=== PATIENT | female | born 1980 | race Caucasian/White ===

== ENCOUNTER 2022-12-24 21:16 | Emergency (ER) | payer OTHER, SELFPAY ==
[2022-12-24] VITALS (13 sets, daily range): BP systolic 123–154; BP diastolic 85–105; PULSE 82–113; RESP 13–22; TEMP 37.2; O2SAT 77–97; BMI 37.1
--- NOTE | 2022-12-24 21:33 | PC.NURSE ---
pt complains of chest pain that began around 6 pm and has gotten worse.
--- NOTE | 2022-12-24 21:52 | ED_ITS ---
HPI - Chest Pain General Chief Complaint: Chest Pain Stated Complaint: CHEST PAIN Time Seen by Provider: 12/24/22 21:49 Source: patient Mode of arrival: walk-in Limitations: no limitations History of Present Illness HPI narrative: family history of heart disease. Father [place] 61. Presents complaining of pain of her left back that started around 5PM and radiated down her left arm. Increased pain with change in position and with deep breath. No associated nausea or dyspnea. Does not smoke cigarettes but does vape. Related Data Home Medications Medication Instructions Recorded Confirmed bupropion HCl 150 mg tablet,12 hr 150 mg PO Q12H 12/24/22 12/24/22 sustained-release diphenhydramine HCl 25 mg capsule 25 mg PO BEDTIME 12/24/22 12/24/22 (Allergy (diphenhydramine)) ibuprofen 800 mg tablet (IBU) 800 mg PO Q12H 12/24/22 12/24/22 pantoprazole 40 mg tablet,delayed 40 mg PO DAILY 12/24/22 12/24/22 release sucralfate 1 gram tablet 1 g PO Q12H 12/24/22 12/24/22 tizanidine 2 mg capsule 2 mg PO BEDTIME 12/24/22 12/24/22 Allergies Allergy/AdvReac Type Severity Reaction Status Date / Time acetaminophen [From Vicodin] Allergy Intermediate Verified 12/24/22 21:26 codeine Allergy Intermediate Verified 12/24/22 21:26 hydrocodone [From Vicodin] Allergy Intermediate Verified 12/24/22 21:26 latex Allergy Intermediate Verified 12/24/22 21:26 Penicillins Allergy Intermediate Verified 12/24/22 21:26 Review of Systems ROS Status of ROS 10 or more systems reviewed and unremarkable except as noted in history and below [facility] Medical History (Updated 12/25/22 @ 01:01 by Romero Baig MD) Exam Constitutional Vital Signs - 24 hr 12/24/22 21:22 12/24/22 21:32 12/24/22 21:40 Temperature 99 F Pulse Rate 109 H 95 H Pulse Rate [Monitor] 113 H Respiratory Rate 20 22 20 Blood Pressure Blood Pressure [Left Arm] 154/103 H Pulse Oximetry 95 12/24/22 21:43 12/24/22 21:44 12/24/22 21:45 Temperature Pulse Rate 95 H 96 H 98 H Pulse Rate [Monitor] Respiratory Rate 14 19 20 Blood Pressure 149/105 H 149/96 H Blood Pressure [Left Arm] Pulse Oximetry 96 95 94 L 12/24/22 22:00 12/24/22 22:30 12/24/22 22:45 Temperature Pulse Rate 96 H 87 86 Pulse Rate [Monitor] Respiratory Rate 19 15 18 Blood Pressure 144/102 H 136/98 H 140/93 H Blood Pressure [Left Arm] Pulse Oximetry 96 97 77 L 12/24/22 23:00 12/24/22 23:15 12/24/22 23:30 Temperature Pulse Rate 86 87 84 Pulse Rate [Monitor] Respiratory Rate 21 17 14 Blood Pressure 123/85 H 130/87 H 128/89 H Blood Pressure [Left Arm] Pulse Oximetry 94 L 97 96 12/24/22 23:45 12/25/22 00:00 12/25/22 00:15 Temperature Pulse Rate 82 85 90 Pulse Rate [Monitor] Respiratory Rate 13 18 23 Blood Pressure 130/91 H 129/87 H 130/87 H Blood Pressure [Left Arm] Pulse Oximetry 94 L 95 97 12/25/22 00:30 12/25/22 00:45 Temperature Pulse Rate 87 88 Pulse Rate [Monitor] Respiratory Rate 16 15 Blood Pressure 128/80 H 122/94 H Blood Pressure [Left Arm] Pulse Oximetry 93 L 93 L Common normals: oriented x3, healthy appearing, alert and well nourished Other: no distress until she sits up and changes position and then she has pain HENMT Common normals: normocephalic, head/scalp atraumatic and hearing grossly normal bilaterally Eye Common normals: PERRL, EOMs intact bilaterally and conjunctivae normal Neck & C-Spine Common normals: full ROM Chest Common normals: inspection of chest normal and palpation of chest normal Respiratory Common normals: normal respiratory effort and no use of accessory muscles Auscultation: clear to auscultation bilaterally Other: increased pain with deep breath Cardio Common normals: no JVD, regular rate, regular rhythm, S1 normal heart sound and S2 normal heart sound GI Common normals: Normal to inspection, nondistended, normoactive bowel sounds present, soft to palpation and non-tender Extremity Common normals: normal to inspection, full ROM and no joint enlargement Neuro Common normals: oriented x3, CN's II-XII intact bilaterally, moves all extremities and no focal motor deficits Psych Appearance: grossly normal Course Vital Signs Vital signs: Vital Signs Temperature 99 F 12/24/22 21:22 Pulse Rate 113 H 12/24/22 21:22 Respiratory Rate 20 12/24/22 21:22 Blood Pressure 154/103 H 12/24/22 21:22 Pulse Oximetry 95 12/24/22 21:22 Temperature 99 F 12/24/22 21:22 Pulse Rate 88 12/25/22 00:45 Respiratory Rate 15 12/25/22 00:45 Blood Pressure 122/94 H 12/25/22 00:45 Pulse Oximetry 93 L 12/25/22 00:45 MDM - Chest Pain MDM Narrative Medical decision making narrative: patient presents with musculoskeletal pain of her back that radiated to her left arm. pain increased with change in position and with deep breath. No associated dyspnea or nausea. CTA neg for PE. Did comment about mild to mod. cardiomegaly. troponin not able to measured x 2 as the value was less than 4. EKG sinus tach on admission without acute changes. Patient treated with one dose of morphine. Patient discharged home with diagnosis of musculoskeletal pain. Advised to follow up with her doctor regarding her cardiomegaly Lab Data Labs: Lab Results 12/24/22 12/24/22 12/24/22 Range/Units 00:22 21:25 23:50 WBC 8.9 (4.0-11.0) 10^3/uL RBC 4.55 (4.20-5.40) 10^6/uL Hgb 12.9 (12.0-16.0) g/dL Hct 38.1 (36.0-48.0) % MCV 83.7 (81.0-99.0) fL MCH 28.4 (26.7-34.0) pg MCHC 33.9 (29.9-35.2) g/dL RDW 13.2 (11.0-15.0) % Plt Count 385 (150-450) 10^3/uL MPV 9.5 (9.5-13.5) fL Neut % (Auto) 55.0 (43.0-75.0) % Lymph % (Auto) 31.8 (20.5-60.0) % [place] % (Auto) 8.8 (1.7-12.0) % Eos % (Auto) 3.4 (0.9-7.0) % Baso % (Auto) 0.7 (0.2-2.0) % Neut # (Auto) 4.9 (1.4-6.5) 10^3/uL Lymph # (Auto) 2.8 (1.2-3.8) 10^3/uL [place] # (Auto) 0.8 (0.3-0.8) 10^3/uL Eos # (Auto) 0.3 (0.0-0.7) 10^3/uL Baso # (Auto) 0.1 (0.0-0.1) 10^3/uL Abs Immat Gran (auto) 0.03 (0.00-0.03) 10^3/uL Imm/Tot Granulo (auto) 0.3 (0.0-0.5) % D-Dimer 0.22 (<=0.59) mg/L FEU Sodium 136 (136-145) mmol/L Potassium 3.4 L (3.5-5.1) mmol/L Chloride 103 (98-107) mmol/L Carbon Dioxide 22.5 (21.0-32.0) mmol/L Anion Gap 13.9 BUN 12.0 (7.0-18.0) mg/dL Creatinine 0.80 (0.55-1.02) mg/dL Est GFR ( Amer) >60 (>=60) Est GFR (Non-Af Amer) >60 (>=60) BUN/Creatinine Ratio 15.0 Glucose 127 H (74-106) mg/dL Calcium 9.0 (8.5-10.1) mg/dL Troponin I High Sens <4.0 L <4.0 L (4.0-51.3) pg/mL Discharge Plan Discharge Chief Complaint: Chest Pain Clinical Impression: Musculoskeletal back pain Prescriptions / Home Meds: No Action bupropion HCl 150 mg tablet sustained-release 12 hr 150 mg PO Q12H sucralfate 1 gram tablet 1 g PO Q12H pantoprazole 40 mg tablet,delayed release (DR/EC) 40 mg PO DAILY tizanidine 2 mg capsule 2 mg PO BEDTIME diphenhydramine HCl [Allergy (diphenhydramine)] 25 mg capsule 25 mg PO BEDTIME ibuprofen [IBU] 800 mg tablet 800 mg PO Q12H Instructions: Musculoskeletal Pain (ED) Stand Alone Forms: Portal Instructions Referrals: Physician,Non-Staff, MD [Primary Care Provider] - 1 week Follow Up Appointments: follow up with the family doctor for recheck. Also need followup for cardiomegaly
--- NOTE | 2022-12-24 21:56 | CT_ITS ---
[address] [address] Patient Name: HAYDER GUTIERRES MRN: [id number] date: 1980 Sex: F Assigned Patient Location: ER Current Patient Location: Accession/Order Number: [id number] Exam Date: 12/24/2022 22:12 Report Date: 12/24/2022 22:55 At the request of: GAL HSIEH Procedure: CT angio chest EXAM: CT angio chest HISTORY: pleuritic chest pain COMPARISON: Chest radiograph 03/05/2022 TECHNIQUE: CT angiography of the pulmonary arteries following the administration of intravenous contrast. Coronal and sagittal MIP (maximum intensity projection) images were performed. Dose reduction techniques were achieved by using automated exposure control and/or adjustment of mA and/or kV according to patient size and/or use of iterative reconstruction technique. FINDINGS: The study is technically adequate for the diagnosis of pulmonary embolism, with good contrast bolus to the pulmonary arteries. TUBES AND IMPLANTS: None. CHEST WALL AND LOWER NECK: Unremarkable. BONES: No suspicious lesions. UPPER ABDOMEN: Prior cholecystectomy. Probable hepatic steatosis. MEDIASTINUM AND SEKOU: Unremarkable. AORTA: No dissection or aneurysm. PULMONARY ARTERIES: No embolism HEART: Mild to moderate cardiomegaly CORONARY ARTERIES: No coronary artery calcifications. LUNG AND AIRWAYS: Unremarkable. PLEURA: Unremarkable. IMPRESSION: 1. No evidence for pulmonary embolism. No evidence of acute intrathoracic process. 2. Mild to moderate cardiomegaly. 3. Probable hepatic steatosis. Electronically authenticated by: COSME WONG Date: 12/24/2022 22:55
--- NOTE | 2022-12-24 21:56 | ECG_ITS ---
The [facility] Test Date: 2022-12-24 Pat Name: Alina Rizzo Department: Room: - Gender: Female Nnps: : 1980 Requested By: [id number] Order Number: [id number] Reading MD: RIP FERGUSON Measurements Intervals [place] Rate: 109 P: 49 MT: 158 QRS: 32 QRSD: 76 T: 35 QT: 330 QTc: 394 Interpretive Statements 1120 Sinus tachycardia 9140 abnormal rhythm ECG No previous ECG available for comparison Electronically Signed On 12-25-2022 5:44:34 EDT by RIP FERGUSON
[2022-12-24 22:09] LABS: Basophils Absolute Auto 0.1 10^3/uL (0.0-0.1); Basophils Percent Auto 0.7 % (0.2-2.0); Eosinophils Absolute Auto 0.3 10^3/uL (0.0-0.7); Eosinophils Percent Auto 3.4 % (0.9-7.0); Hematocrit 38.1 % (36.0-48.0); Hemoglobin 12.9 g/dL (12.0-16.0); Immature Granulocytes Abs Auto 0.03 10^3/uL (0.00-0.03); Immature Granulocytes Pct Auto 0.3 % (0.0-0.5); Lymphocytes Absolute Auto 2.8 10^3/uL (1.2-3.8); Lymphocytes Percent Auto 31.8 % (20.5-60.0); Mean Corpuscular HGB Conc 33.9 g/dL (29.9-35.2); Mean Corpuscular Hemoglobin 28.4 pg (26.7-34.0); Mean Corpuscular Volume 83.7 fL (81.0-99.0); Mean Platelet Volume 9.5 fL (9.5-13.5); Monocytes Absolute Auto 0.8 10^3/uL (0.3-0.8); Monocytes Percent Auto 8.8 % (1.7-12.0); Neutrophils Absolute Auto 4.9 10^3/uL (1.4-6.5); Platelet Count 385 10^3/uL (150-450); Red Blood Count 4.55 10^6/uL (4.20-5.40); Red Cell Distribution Width 13.2 % (11.0-15.0); White Blood Count 8.9 10^3/uL (4.0-11.0)
[2022-12-24 22:16] LABS: D Dimer 0.22 mg/L FEU (<=0.59)
[2022-12-24 22:25] LABS: Anion Gap 13.9; Carbon Dioxide 22.5 mmol/L (21.0-32.0); Chloride 103 mmol/L (98-107); Estimated GFR (African America >60 (>=60); Estimated GFR (Non-African Ame >60 (>=60); Glucose 127 mg/dL (74-106); Potassium 3.4 mmol/L (3.5-5.1); Sodium 136 mmol/L (136-145); Troponin I High Sensitivity <4.0 pg/mL (4.0-51.3)
[2022-12-24] MEDS: ONDANSETRON PF 4 MG/2 ML VIAL IV (23:30)
[2022-12-24] MEDS: MORPHINE SULFATE 4 MG/ML VIAL IV (23:30)
[2022-12-25] VITALS: BP 129/87; PULSE 85; RESP 18; O2SAT 95
[2022-12-25 00:15] VITALS: BP 130/87; PULSE 90; RESP 23; O2SAT 97
[2022-12-25 00:25] LABS: Troponin I High Sensitivity <4.0 pg/mL (4.0-51.3)
[2022-12-25 00:30] VITALS: BP 128/80; PULSE 87; RESP 16; O2SAT 93
[2022-12-25 00:45] VITALS: BP 122/94; PULSE 88; PULSE 89; RESP 15; O2SAT 93; O2SAT 95
[2022-12-25 01:00] VITALS: BP 128/90
== END 2022-12-25 01:20 | disposition home or self-care (01) ==
PROVIDERS: Emergency Provider Internal Medicine
DX: M54.9 Dorsalgia, unspecified (principal); Z82.49 Family history of ischemic heart disease and other diseases of the circulatory system; Z79.899 Other long term (current) drug therapy
CPT/HCPCS: 36415; 71275; 80048; 84484; 85025; 85378; 93005; 96374; 96375; 99285; Q9967

== ENCOUNTER 2022-12-30 09:01 | Outpatient (OUT) | payer OTHER, SELFPAY ==
--- NOTE | 2022-12-30 09:13 | MM_ITS ---
Patient: HAYDER GUTIERRES Exam Date: 12/30/2022 : 1980 Gender:F Ordering : DR Catracho Lewis . Admission #: [id number] Family : DR SHANON PENALOZA M.D. Order #: [id number] CLICK HERE TO VIEW EXAM RADIOLOGY REPORT PROCEDURE: MM TOMOSYNTHESIS SCREENING BI COMPARISON: US BREAST RIGHT LIMITED, 09/02/2021. MG MAMM SCREEN 3D ELDER CAD, 08/26/2021. MG MAMM SCREEN ELDER W CAD, 01/16/2020. INDICATIONS: SCREENING Calculator Name NCI Breast Cancer Risk Assessment Tool 5 Year Breast Cancer Risk 0.60% Lifetime Breast Cancer Risk 8.90% Personal Breast Cancer No Personal Ovarian Cancer No Treatments None Family Cancers Aunt-maternal with uterine cancer at age ~60; Cousin-maternal with brain cancer at age 3; Grandfather-paternal with kidney cancer at age 68. LOCATION: The [facility] BREAST COMPOSITION: Heterogeneously dense,which may obscure small masses. FINDINGS: DIAGNOSTIC CATEGORY 2--BENIGN FINDING: RIGHT BREAST: No significant suspicious finding. Scattered benign-appearing cysts are present. No significant change has occurred. LEFT BREAST: No significant suspicious finding. No significant change has occurred. RECOMMENDATIONS: ROUTINE MAMMOGRAM AND CLINICAL EVALUATION IN 12 MONTHS. PLEASE NOTE: A NORMAL MAMMOGRAM DOES NOT EXCLUDE THE POSSIBILITY OF BREAST CANCER. A CLINICALLY SUSPICIOUS PALPABLE LUMP SHOULD BE BIOPSIED. Dictated by: Marek Remy M.D. on 12/30/2022 at 16:39 Approved by: Marek Remy M.D. on 12/30/2022 at 16:43
== END 2022-12-30 09:02 ==
LOC: MAMMO 09:04
PROVIDERS: PCP Family Medicine; Visit Provider Obstetrics & Gynecology
DX: Z12.31 Encounter for screening mammogram for malignant neoplasm of breast (principal)
CPT/HCPCS: 77063; 77067

== ENCOUNTER 2023-02-02 14:40 | Outpatient (OUT) | payer OTHER, SELFPAY ==
[2023-02-02 15:50] LABS: Cholesterol 313 mg/dL (<=200); HDL Cholesterol 39 mg/dL (40-60); Triglycerides 221 mg/dL (<=150); VLDL CHOLESTEROL 44.2 mg/dL
[2023-02-03 12:08] LABS: C-Reactive Protein, Cardiac 5.13 mg/L (0.00-3.00)
== END 2023-02-02 14:41 | disposition home or self-care (01) ==
LOC: LAB 14:44
PROVIDERS: PCP Family Medicine; Visit Provider Internal Medicine Cardiovascular Disease
DX: Z13.220 Encounter for screening for lipoid disorders (principal)
CPT/HCPCS: 36415; 80061; 86140

== ENCOUNTER 2023-02-17 21:07 | Outpatient (REF) | payer OTHER, SELFPAY ==
[2023-02-23 15:10] LABS: Age Gdln ACOG Testing Note (.); HPV Aptima Negative (Negative); IGP, Aptima HPV, rfx 16/18,45 Note (.)
== END 2023-02-17 21:08 | disposition home or self-care (01) ==
LOC: LAB 21:07
PROVIDERS: PCP Family Medicine; Visit Provider Physician Assistant
DX: Z01.419 Encounter for gynecological examination (general) (routine) without abnormal findings (principal)
CPT/HCPCS: 87624; G0145

== ENCOUNTER 2023-05-11 13:45 | Outpatient (OUT) | payer OTHER, SELFPAY ==
--- NOTE | 2023-05-11 | US_ITS ---
[address] [address] Patient Name: HAYDER GUTIERRES MRN: [id number] date: 1980 Sex: F Assigned Patient Location: US Current Patient Location: Accession/Order Number: [id number] Exam Date: 05/11/2023 14:15 Report Date: 05/13/2023 07:23 At the request of: HUANG OLSON Procedure: US arterial duplex UE RT EXAMINATION: US arterial duplex UE RT HISTORY: right arm pain COMPARISON: No relevant comparison available. TECHNIQUE: Color duplex Doppler ultrasound evaluation analysis was performed in the usual manner. FINDINGS: Subclavian Proximal: 119 / 14 cm/s Axillary: 115 / 0 cm/s Brachial Proximal: 82 / 0 cm/s Distal: 81 / 0 cm/s Radial Proximal: 72 / 7 cm/s Distal: 61 / 12 cm/s Ulnar Proximal: 52 / 8 cm/s Distal: 50 / 7 cm/s WAVE FORM: Abnormal monophasic waveform within the radial and ulnar arteries. Normal triphasic waveform throughout the upper arm. VESSEL LUMEN: Narrowing within the upper and lower arm suspected to be due to noncalcified plaque. FLOW VELOCITY: No significantly increased or decreased flow velocity. US/US arterial duplex UE RT IMPRESSION: 1. Abnormal flow and waveform within the radial and ulnar arteries suspected secondary to luminal narrowing throughout. Electronically authenticated by: EM PRINCE Date: 05/13/2023 07:23
== END 2023-05-11 13:46 | disposition home or self-care (01) ==
LOC: US 13:46
PROVIDERS: PCP Family Medicine; Visit Provider Physician Assistant
DX: M79.601 Pain in right arm (principal); G54.0 Brachial plexus disorders; R09.89 Other specified symptoms and signs involving the circulatory and respiratory systems
CPT/HCPCS: 93931

== ENCOUNTER 2023-09-08 15:54 | Outpatient (OUT) | payer OTHER, SELFPAY ==
[2023-09-10 08:12] LABS: Cytomegalovirus (CMV) Ab, IgM <30.0 AU/mL (0.0-29.9)
[2023-09-10 14:09] LABS: Lyme Total Antibody CIA Negative (Negative)
[2023-09-13 11:08] LABS: Antinuclear Antibodies, IFA Negative (.)
== END 2023-09-08 15:55 | disposition home or self-care (01) ==
LOC: LAB 15:55
PROVIDERS: PCP Family Medicine; Visit Provider Psychiatry & Neurology Neurology
DX: R53.1 Weakness (principal); R20.9 Unspecified disturbances of skin sensation; M79.601 Pain in right arm; R41.3 Other amnesia; F03.90 Unspecified dementia, unspecified severity, without behavioral disturbance, psychotic disturbance, mood disturbance, and anxiety
CPT/HCPCS: 36415; 86038; 86618; 86644; 86645; 86665

== ENCOUNTER 2023-09-15 12:21 | Outpatient (OUT) | payer OTHER, SELFPAY ==
--- NOTE | 2023-09-15 12:24 | MR_ITS ---
The [address] [address] Patient Name: HAYDER GUTIERRES MRN: [id number] date: 1980 Sex: F Assigned Patient Location: MRI Current Patient Location: MRI Accession/Order Number: [id number] Exam Date: 09/15/2023 12:45 Report Date: 09/15/2023 16:46 At the request of: AUSTEN JUSTIN Procedure: MR head/brain wo/w con MR head/brain wo/w con, 09/15/2023 12:45 PM EST INDICATION: disturbance of skin sensation R20.9 chronic memory loss, weakness COMPARISON: There is no appropriate prior study for comparison. TECHNIQUE: Multiplanar, multisequential MRI images of brain were obtained without and with injection of contrast. FINDINGS: The cerebral sulci as well as ventricular system are enlarged consistent with mild ex vacuo cerebral volume loss. There is no restricted diffusion. There is no intracranial mass, mass effect, midline shift, intra or extra-axial fluid collection or large hemorrhage. No abnormal enhancing lesion is noted. Normal flow-void in the intracranial vessels is noted. Mild mucosal thickening within the left maxillary sinus is noted. The visualized portions of orbits, mastoid air cells as well as the remainder of paranasal sinuses are unremarkable. MR/MR head/brain wo/w con IMPRESSION: No acute intracranial process is noted. Mild cerebral volume loss for age. This finding is nonspecific. However, consider malnutrition versus immunosuppression such as HIV. Electronically authenticated by: BRADEN ETIENNE Date: 09/15/2023 16:46
== END 2023-09-15 12:22 | disposition home or self-care (01) ==
LOC: MRI 12:21
PROVIDERS: PCP Family Medicine; Visit Provider Psychiatry & Neurology Neurology
DX: R20.9 Unspecified disturbances of skin sensation (principal); M79.601 Pain in right arm; R53.1 Weakness; R41.3 Other amnesia
CPT/HCPCS: 70553; A9575

== ENCOUNTER 2023-09-27 11:56 | Outpatient (OUT) | payer OTHER, SELFPAY ==
[2023-09-27 12:21] LABS: Basophils Absolute Auto 0.1 10^3/uL (0.0-0.1); Basophils Percent Auto 0.8 % (0.2-2.0); Eosinophils Absolute Auto 0.3 10^3/uL (0.0-0.7); Eosinophils Percent Auto 3.1 % (0.9-7.0); Hematocrit 38.8 % (36.0-48.0); Hemoglobin 12.3 g/dL (12.0-16.0); Immature Granulocytes Abs Auto 0.02 10^3/uL (0.00-0.03); Immature Granulocytes Pct Auto 0.2 % (0.0-0.5); Lymphocytes Absolute Auto 3.9 10^3/uL (1.2-3.8); Lymphocytes Percent Auto 39.7 % (20.5-60.0); Mean Corpuscular HGB Conc 31.7 g/dL (29.9-35.2); Mean Corpuscular Hemoglobin 28.2 pg (26.7-34.0); Mean Platelet Volume 9.5 fL (9.5-13.5); Monocytes Absolute Auto 1.1 10^3/uL (0.3-0.8); Monocytes Percent Auto 11.2 % (1.7-12.0); Neutrophils Absolute Auto 4.4 10^3/uL (1.4-6.5); Platelet Count 343 10^3/uL (150-450); Red Blood Count 4.36 10^6/uL (4.20-5.40); Red Cell Distribution Width 13.1 % (11.0-15.0); White Blood Count 9.8 10^3/uL (4.0-11.0)
[2023-09-29 21:07] LABS: Anti-MPO Antibodies <0.2 units (0.0-0.9); Anti-PR3 Antibodies <0.2 units (0.0-0.9); Cytoplasmic (C-ANCA) <1:20 titer (Neg:<1:20); Perinuclear (P-ANCA) <1:20 titer (Neg:<1:20)
== END 2023-09-27 11:57 | disposition home or self-care (01) ==
LOC: LAB 11:57
PROVIDERS: PCP Family Medicine; Visit Provider Psychiatry & Neurology Neurology
DX: M79.601 Pain in right arm (principal); R53.1 Weakness
CPT/HCPCS: 36415; 83516; 85025; 86037

== ENCOUNTER 2024-02-15 10:03 | Outpatient (OUT) | payer OTHER, SELFPAY ==
--- NOTE | 2024-02-15 10:05 | MM_ITS ---
Patient Name: HAYDER GUTIERRES MR#: [id number] : 1980 Exam Date: 02/15/2024 Ordering Doctor: DR Catracho Lewis . RADIOLOGY REPORT PROCEDURE: MM TOMOSYNTHESIS SCREENING BI COMPARISON: MM TOMOSYNTHESIS SCREENING BI, 12/30/2022. MG MAMM SCREEN 3D ELDER CAD, 08/26/2021. INDICATIONS: Screening Calculator Name NCI Breast Cancer Risk Assessment Tool 5 Year Breast Cancer Risk 0.70% Lifetime Breast Cancer Risk 8.70% Personal Breast Cancer No Personal Ovarian Cancer No Treatments None Family Cancers Aunt-maternal with uterine cancer at age ~60; Cousin-maternal with brain cancer at age 3; Grandfather-paternal with kidney cancer at age 68. LOCATION: The [facility] BREAST COMPOSITION: The breasts are heterogeneously dense,which may obscure small masses. FINDINGS: DIAGNOSTIC CATEGORY 2--BENIGN FINDING. NO CHANGE FROM COMPARISON. Scattered benign-appearing calcifications are present. Scattered benign-appearing lymph nodes are present. No significant change has occurred. RIGHT BREAST: No significant suspicious finding. LEFT BREAST: No significant suspicious finding. RECOMMENDATIONS: ROUTINE MAMMOGRAM AND CLINICAL EVALUATION IN 12 MONTHS. PLEASE NOTE: A NORMAL MAMMOGRAM DOES NOT EXCLUDE THE POSSIBILITY OF BREAST CANCER. A CLINICALLY SUSPICIOUS PALPABLE LUMP SHOULD BE BIOPSIED. Dictated by: Xavier Murillo MD on 02/15/2024 at 13:10 Approved by: Xavier Murillo MD on 02/15/2024 at 13:12
== END 2024-02-15 10:04 | disposition home or self-care (01) ==
LOC: MAMMO 10:03
PROVIDERS: PCP Family Medicine; Visit Provider Obstetrics & Gynecology
DX: Z12.31 Encounter for screening mammogram for malignant neoplasm of breast (principal); Z80.8 Family history of malignant neoplasm of other organs or systems; Z80.51 Family history of malignant neoplasm of kidney
CPT/HCPCS: 77063; 77067

== ENCOUNTER 2024-02-22 20:03 | Outpatient (REF) | payer OTHER, SELFPAY ==
--- OUTSIDE RECORDS SUMMARY | 2024-02-22 20:08 | XMS_ITS | CCD ---
Author Organization [facility] Care Team Providers Care Pot Pusher Name Role Phone Cade Bae Unavailable Unavailable Family Physician Unavailable Unavailable Alice vailable Family Physician Unavailable Unavailable Alice vailable Lex Penaloza Unavailable Unavailable Unavailable [place], DR CLAUDIO Admitting Unavailable CA, DR CLAUDIO Attending Unavailable CA, DR CLAUDIO Consulting Unavailable ZIEBER, DR MAREK Shah Consulting Unavailable MINDY, DR GILLIAM Admitting Unavailable MINDY, DR GILLIAM Attending Unavailable MINDY, DR GILLIAM Consulting Unavailable MINDY, DR GILLIAM Admitting Unavailable MINDY, DR GILLIAM Attending Unavailable MINDY, DR GILLIAM Consulting Unavailable ZIEBER, DR MAREK Shah Consulting Unavailable MINDY, DR GILLIAM Admitting Unavailable MINDY, DR GILLIAM Attending Unavailable [place], DR JHON Smith Consulting Unavailable MINDY, DR GILLIAM Consulting Unavailable Renny, Dr. Edward Rockwell Referring Unava ilable Renny, Dr. Edward Rockwell Attending Unava ilable [place], Dr. Lex Bush Primary [facility] Unavaila ble Renny, Dr. Edward Rockwell Attending Unava ilable [place], Dr. Lex Bush Primary Care Unavaila ble Roberto Carlos Layne Unavailable KATIE OLSON Attending Unavailable KATIE OLSON Attending Unavailable AUSTEN JUSTIN Attending Unavailable KATIE OLSON Referring Unavailable AUSTEN JUSTIN Referring Unavailable AUSTEN JUSTIN Referring Unavailable KATIE OLSON Attending Unavailable AUSTEN JUSTIN Attending Unavailable KATIE OLSON Attending Unavailable AUSTEN JUSTIN Attending Unavailable Allergies Allergy Classification Reported Allergen(s) Allergy Type Date of Onset Reaction(s) Facility (6 sources) Acetaminophen / HYDROcodone; Translations: [Vicodin TABS] Drug Allergy [facility] Work Phone: (7 sources) Codeine; Translations: [Codeine Derivatives] Drug Allergy swelling [facility] Work Phone: (6 sources) natural latex rubber Allergy to substance (finding) [facility] Work Phone: (6 sources) Penicillins; Translations: [Penicillins] Allergy to drug (finding) [facility] Work Phone: (2 sources) Acetaminophen / HYDROcodone Drug Allergy 1 [facility] Repository (1 source) Codeine Drug Allergy 1 [facility] Repository (1 source) Latex Drug allergy (disorder) 1 [facility] Repository (2 sources) Penicillin Drug Allergy 1 hives [facility] Repository (1 source) Latex Drug allergy [facility] [employer] Other Medications Current Medications Medication Drug Class(es) Dates Sig (Normalized) Sig (Original) atorvastatin 40 mg oral tablet (1 source) HMG-CoA Reductase Inhibitor take 1 tablet by mouth every twenty-four hours Atorvastatin Calcium 40 MG 1 tablet Orally Once a day Active buPROPion (7 sources) Aminoketone Wellbutrin Activ e Wellbutrin TABS TAKE 1 TABLET EVERY 12 HOURS DAILY. Quantity: 0 Refills: 0 Ordered: 27-Jan-2023 DO Active Wellbutrin TABS Quantity: 0 Refills: 0 Ordered: 28-Jul-2021 DO Active diphenhydrAMINE (1 source) Histamine-1 Receptor Antagonist Benadryl Active FLUoxetine (1 source) Serotonin Reuptake Inhibitor PRO elizabeth Active Ibuprofen (7 sources) Nonsteroidal Anti-inflammatory Drug Ibuprofen Active take 1 tablet by jacquie th three times daily as needed Ibuprofen 800 MG Oral Tablet TAKE 1 TABL ET 3 TIMES DAILY NEEDED. Quantity: 0 Refills: 0 Ordered: 27-Jan-2023 DO Active Ibuprofen 800 MG Oral Tablet Quantity: 0 Refills: 0 Ordered: 28-Jul-2021 DO Active pantoprazole (7 sources) Proton Pump Inhibitor Protonix A ctive take 1 tablet by mouth once john y Protonix 20 MG Oral Tablet Delayed Release TAKE 1 TABLET DAILY. Quantity: 0 Refills: 0 Ordered: 27-Jan-2023 DO Active Protonix 20 MG O ral Tablet Delayed Release Quantity: 0 Refills: 0 Ordered: 28-Jul-2021 DO Active Sucralfate (7 sources) Aluminum Complex Carafate Active Carafate TABS TA KE 1 TABLET EVERY 12 HOURS DAILY. Quantity: 0 Refills: 0 Ordered: 27-Jan-2023 DO Active Carafate TABS Qu antity: 0 Refills: 0 Ordered: 28-Jul-2021 DO Active tiZANidine (7 sources) Central alpha-2 Adrenergic Agonist Zanaflex Active take 1 tablet by mouth at bedtim e Zanaflex TABS TAKE 1 TABLET AT BEDTIME. Quantity: 0 Refills: 0 Ordered: 27-Jan-2023 DO Active Zanaflex TABS Qu antity: 0 Refills: 0 Ordered: 28-Jul-2021 DO Active Completed/Discontinued Medications Medication Drug Class(es) Dates Sig (Normalized) Sig (Original) Betamethasone Sodium Phosphate 6 MG/ML Injection Solution (2 sources) Start: 07-28-2021 Betamethasone Sodium Phosphate 6 MG/ML Injection Solution 2 ml right shoulder Quantity: 0 Refills: 0 Ordered: 28-Jul-2021 Cade Ramos MD Start : 28-Jul-2021 Complete 10 ml lidocaine hydrochloride 10 mg/ml injection (2 sources) Antiarrhythmic, Amide Local Anesthetic Start: 07-28-2021 Lidocaine HCl - 1 % Injection Solution 5 ml right shoulder Quantity: 0 Refills: 0 Ordered: 28-Jul-2021 Cade Ramos MD Start : 28-Jul-2021 Complete topiramate (2 sources) Topamax TABS Quantity: 0 Refills: 0 Ordered: 28-Jul-2021 DO Active Problems Active Problems Problem Classification Problem Date Documented Da te Episodic/Chronic Asthma (1 source) Unspecified asthma, uncomplicated; Translations: [UNSPECIFIED ASTHMA UNCOMPLICATED] Onset: 2 Chronic Blindness and vision defects (6 sources) Disorder of vision; Translations: [Problems with sight] Chronic Esophageal disorders (4 sources) Gastroesophageal reflux disease; Translations: [Esophageal reflux] Chronic Nonspecific chest pain (5 sources) Chest pain; Translations: [Chest pain, unspecified] Onset: 3 Episodic Other and ill-defined heart disease (4 sources) Heart disease; Translations: [Other ill-defined heart diseases] Chronic Other connective tissue disease (2 sources) Impingement syndrome of shoulder region; Translations: [Other affections of shoulder region, not elsewhere classified] Episodic Other connective tissue disease (6 sources) H/O: arthritis; Translations: [Personal history of arthritis] Episodic Other connective tissue disease (1 source) Pain in right arm Episodic Other ear and sense organ disorders (6 sources) Ear, nose and throat disorder; Translations: [Other and unspecified diseases of upper respiratory tract] Episodic Other gastrointestinal disorders (6 sources) Disorder of digestive system; Translations: [Other digestive problems] Episodic Other lower respiratory disease (6 sources) Abnormal breathing; Translations: [Respiratory abnormality, unspecified] Episodic Other nervous system disorders (1 source) Thoracic outlet syndrome; Translations: [Brachial plexus disorders] Chronic Other nervous system disorders (6 sources) Numbness and tingling sensation of skin; Translations: [Disturbance of skin sensation] Episodic Other non-traumatic joint disorders (6 sources) Shoulder pain; Translations: [Pain in joint, shoulder region] Episodic Other non-traumatic joint disorders (4 sources) Disorder of shoulder; Translations: [Other specified disorders of joint, shoulder region] Episodic Other nutritional; endocrine; and metabolic disorders (4 sources) Obesity; Translations: [Obesity, unspecified] Chronic Other screening for suspected conditions (not mental disorders or infectious disease) (17 sources) Other abnormal and inconclusive findings on diagnostic imaging of breast; Translations: [Encounter for screening mammogram for malignant neoplasm of breast] Onset: 2 Episodic Other upper respiratory infections (4 sources) Chronic sinusitis, unspecified; Translations: [CHRONIC SINUSITIS UNSPECIFIED] Onset: 2 Chronic Screening and history of mental health and substance abuse codes (4 sources) Ex-smoker; Translations: [Personal history of tobacco use] Episodic Substance-related disorders (5 sources) Nicotine dependence, unspecified, uncomplicated; Translations: [Nicotine dependence] Onset: 2 Chronic Unclassified (1 source) Unknown / UNK(Unknown) Onset: 10-24-201 7 Past or Other Problems Problem Classification Problem Date Documented Date Episodic/Chronic Immunizations and screening for infectious disease (1 source) Encounter for screening for human papillomavirus (HPV); Translations: [ENC SCREENING HUMAN PAPILLOMAVIRUS] Onset: 07-31-2021 Episodic Residual codes; unclassified (1 source) Family history of malignant neoplasm of other genital organs; Translations: [FAM HX MALIG NEOPLSM OTH GENIT ORGN] Onset: 09-01-2021 Episodic Residual codes; unclassified (1 source) Family history of malignant neoplasm of kidney; Translations: [FAM HX MALIGNANT NEOPLASM KIDNEY] Onset: 09-01-2021 Episodic Residual codes; unclassified (1 source) Family history of malignant neoplasm of other organs or systems; Translations: [FAM HX MALIG NEOPLASM OTH ORGN/SYS] Onset: 09-01-2021 Episodic Unclassified (1 source) [facility] [address] H50.05 Onset: 05-11-2017 Results Test Name Value Interpretation Reference Range Facility Cardiac Stress Teston 2022 Cardiac Stress Test [address], [address] [place] [address] Exercise Stress Test Patient Name: ALINA Ordering Physician: [id number] Edward GUTIERRES Study Date: 2023 Reading Physician: [id number] Juan Menchaca MD, [facility] MRN/PID: [id number] Supervising [id number] Edward Hammond DO Physician: Accession/Order#: [id number] Referring Physician: EDWARD HAMMOND Date of : 1980 PCP: Lex Penaloza Gender: F Fellow: Height: 152.40 cm Nurse: Kirstie Russ RN Weight: 88.45 kg Knapsack Sprayer: BREANNA BSA: 1.85 m2 Technologist: BMI: 38.08 kg/m2 Additional Staff: Age: 43 years cc report to: Patient Location: cc report to: Juan Manuel Hammond Study Type: Cardiac Stress Test Diagnosis/ICD: R07.9-Chest pain, unspecified Indication: Chest Pain Procedure/CPT: Stress Test Interpretation-73508; Stress Test Supervision-[id number] Falls Risk: Low: Patient has low risk for sustaining a fall; environmental safety interventions in place. Study Details: Correct procedure and correct patient verified verbally. Patient Performance: The peak heart rate achieved was 179 bpm, which was 101 % of the age predicted target heart rate of 177 bpm. The resting blood pressure was 116/78 mmHg with a heart rate of 96 bpm. The standing blood pressure was 114/76 mmHg with a heart rate of 96 bpm. The patient's functional capacity was average. The patient developed fatigue during the stress exam. The symptoms resolved with rest. The blood pressure response was normal. The test was terminated due to: fatigue. Baseline ECG: Resting ECG showed normal sinus rhythm. Stress Stage Data: + +---+------ +-------+ HR Sys BP Pablo BP + +---+------ +-------+ Baseline Resting 96 116 78 + +---+------ +-------+ Baseline Standing 96 114 76 + +---+------ +-------+ Stage I 148 128 74 + +---+------ +-------+ Stage II 168 138 72 + +---+------ +-------+ Stage III 176 146 70 + +---+------ +-------+ Recovery ECG: The heart rate recovery was normal. + +---+------+---- ---+ HR Sys BP Pablo BP + +---+------+---- ---+ Recovery I 179 146 70 + +---+------+---- ---+ Recovery II 162 142 68 + +---+------+---- ---+ Recovery III 129 128 76 + +---+------+---- ---+ Recovery IV 125 117 74 + +---+------+---- ---+ Recovery V 118 + +---+------+---- ---+ Summary: 1. 1_normal graded exercise tolerance test after completing 7 minutes on a Justen protocol and achieving 101% of predicted maximal heart rate and workload of 8.5 METS. 2_no chest pain, ischemic EKG changes or cardiac arrhythmias induced by exercise 3_appropriate hemodynamic response to exercise with normal heart rate recovery and achievement of [place] treadmill score of 7+ which is favorable. 2. Adequate level of stress achieved. [id number] Juan Menchaca MD, [facility] Electronically signed on 2023 at 4:04:27 PM Final Normal [facility] Cardiac Stress Test -[facility] [address] DO Work Phone: Office Visit (Cardiology)on 01-27-2023 Follow-up visit Diagnoses/Problems Assessed Chest pain (786.50) (R07.9) GERD (gastroesophageal reflux disease) (530.81) (K21.9) Vaping nicotine dependence, tobacco product (305.1) (F17.290) Former smoker (V15.82) (Z87.891) Class 2 obesity with body mass index (BMI) of 38.0 to 38.9 in adult (278.00,V85.38) (E66.9,Z68.38) Lipid screening (V77.91) (Z13.220) 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) Orders Chest pain Cardiac Stress Test; Status:Hold For - Scheduling,Retrospective Authorization; Requested for:[id number]; CRP, High Sensitivity; Status:Active - Retrospective Authorization; Requested for:[id number]; IO EKG Electrocardiogram- 12 Lead; Status:Complete; Done: [id number] Class 2 obesity with body mass index (BMI) of 38.0 to 38.9 in adult Healthy Weight Tips; Status:Complete - Retrospective Authorization; Done: [id number] Some eating tips that can help you lose weight.; Status:Complete - Retrospective Authorization; Done: 07Ooc2621 Lipid screening Lipid Panel; Status:Active - Retrospective Authorization; Requested for:[id number]; SocHx: Former smoker Tobacco Use Screening; Status:Complete; Done: 40Zhy9364 SocHx: Vaping nicotine dependence, tobacco product You need to quit smoking.; Status:Complete - Retrospective Authorization; Done: 09Kav8561 You need to stop smoking. Though it is not easy, more than half of all adult smokers have quit. We encourage you to write down all the reasons you should quit smoking and set a quit date for yourself. Ask us how we can help. You may also call 2-039-HLMDNOW for free resources and assistance.; Status:Complete - Retrospective Authorization; Done: 61Ekh9807 Patient Instructions Please bring all medicines, vitamins, and herbal supplements with you when you come to the office. Prescriptions will not be filled unless you are compliant with your follow up appointments or have a follow up appointment scheduled as per instruction of your physician. Refills should be requested at the time of your visit. GXT stress test CRP, Lipid lab Follow-up as needed only Chief Complaint ALINA GUTIERRES is being seen for a consultation for intermittent chest pain. 42-year-old female seen in cardiology consultation at the request of Dr. Anderson for further evaluation in regards to chest discomfort. Approximately within the last 2 weeks he sustained 1 episode of severe anterior and retrosternal chest discomfort that was excruciating in nature, went to [place] ER, ruled out for acute coronary syndrome and was discharged home. Details of the [place] emergency room evaluation are unavailable. She apparently had CT of the chest that was unremarkable. She has no prior history of myocardial infarction, revascularization, stroke, thromboembolic or bleeding disorder She professes that she does have a strong family history including father and grandfather at early ages for myocardial infarctions/sudden . Today's ECG is normal sinus rhythm and completely normal She denies diabetes, does admit to vaping but negative cigarette use, she is a former smoker. 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 Surgical History Problems History of section History of Dilation and curettage History of Esophagogastroduodenoscopy History of Eye surgery History of Gallbladder surgery History of Shoulder arthroscopy Past Medical History Problems History of Breathing problem (786.00) (R06.9) History of Digestive problems (V47.3) (K92.9) History of Ear, nose and throat disorder (478.9) (H93.90,J34.9,J39.2) History of arthritis (V13.4) (Z87.39) History of Numbness and tingling (782.0) (R20.0,R20.2) History of Vision problems (V41.0) (H54.7) Current Meds Medication NameInstruction Carafate TABSTAKE 1 TABLET EVERY 12 HOURS DAILY. Ibuprofen 800 MG Oral TabletTAKE 1 TABLET 3 TIMES DAILY NEEDED. Protonix 20 MG Oral Tablet Delayed ReleaseTAKE 1 TABLET DAILY. Wellbutrin TABSTAKE 1 TABLET EVERY 12 HOURS DAILY. Zanaflex TABSTAKE 1 TABLET AT BEDTIME. Patient did not bring medication list or bottles. Updated verbally with patient Allergies Medication Codeine Derivatives Recorded By: Isatu Rockwell MA; 07/28/2021 2:30:21 PM Penicillins Recorded By: Isatu Rockwell MA; 07/28/2021 2:30:21 PM Vicodin TABS Recorded By: Isatu Rockwell MA; 07/28/2021 2:30:21 PM NonMedication Latex Recorded By: Isatu Rockwell MA; 07/28/2021 2:30:21 PM Social History Problems Caffeine use (V49.89) (Z78.9) History of Current smoker (305.1) (F17.200) Former smoker (V15.82) (Z87.891) (more content not included)... Normal [employer] Tobacco Screening.on 023 Tobacco use status [facility] b) No -[facility] [address] DO Work Phone: Tobacco Screening. Yes -[facility] [address] DO Work Phone: XR CHEST 2 Von 03-06-2022 XR CHEST 2 V EXAMINATION: XR CHES T 2 V HISTORY: Chronic sinusitis COMPARISON: No relevant comparison available. FINDINGS: LUNGS: No significant pulmonary parenchymal abnormalities. VASCULATURE: No increased pulmonary vasculature. PLEURA: No pneumothorax, effusion, or pleural thickening. CARDIAC: No cardiomegaly or cardiac silhouette abnormality. MEDIASTINUM: No visible mass or adenopathy. BONES: No fracture or visible bone lesion. OTHER: Negative. IMPRESSION: 1. Normal chest. Electronically authenticated by: MAREK REMY Date: 2022-03-06 08:35 Normal [facility] US BREAST RIGHT LIMITEDon US BREAST RIGHT LIMITED Patient: ALINA GUTIERRES Exam Date: 09/02/2021 : 1980 Gender:F Ordering : DR MANE GUILLEN . Admission #: [id number] Family : Order #: [id number] CLICK HERE TO VIEW EXAM RADIOLOGY REPORT PROCEDURE: ULTRASOUND BREAST RIGHT LIMITED COMPARISON: MG MAMM SCREEN 3D ELDER CAD, 08/26/2021. INDICATIONS: Abnormal findings on diagnostic imaging of breast TECHNIQUE: Breast ultrasound was performed, with evaluation focusing only on specific areas of concern. FINDINGS: DIAGNOSTIC CATEGORY 2--BENIGN FINDING: Ultrasound demonstrates at the 6 o'clock position in oval slightly irregular area of anechoic echogenicity measuring 1.2 x 1.1 x 0.4 cm. Identified at the 8 o'clock position is an oval area of anechoic echogenicity measuring 1.0 x 1.0 x 0.6 cm. Both of these lesions demonstrate increased acoustic through transmission. Both lesions are likely simple cysts, 1 of which is partially collapsed. RECOMMENDATIONS: 2 simple cysts corresponding to the mammographic findings. No further evaluation is Required ROUTINE MAMMOGRAM AND CLINICAL EVALUATION IN 12 MONTHS. PLEASE NOTE: A NORMAL ULTRASOUND EXAMINATION DOES NOT EXCLUDE THE POSSIBILITY OF BREAST CANCER. A CLINICALLY SUSPICIOUS PALPABLE LUMP SHOULD BE BIOPSIED. Dictated by: Jhon Murillo MD on 09/02/2021 at 13:48 Approved by: Jhon Murillo MD on 09/02/2021 at 13:51 Normal [facility] MG MAMM SCREEN 3D ELDER CADon 08-26-2021 MG MAMM SCREEN 3D ELDER CAD Patient: ALINA GUTIERRES Exam Date: 08/26/2021 : 1980 Gender:F Ordering : DR MANE GUILLEN . Admission #: [id number] Family : Order #: [id number] CLICK HERE TO VIEW EXAM RADIOLOGY REPORT PROCEDURE: MAMMOGRAM SCREENING 3D BILATERAL CAD COMPARISON: MG MAMM SCREEN ELDER W CAD, 01/16/2020. INDICATIONS: Screening mammography Calculator Name NCI Breast Cancer Risk Assessment Tool 5 Year Breast Cancer Risk 0.50% Lifetime Breast Cancer Risk 9.00% Personal Breast Cancer No Personal Ovarian Cancer No Treatments None Family Cancers Aunt-maternal with uterine cancer at age 60; Cousin-maternal with brain cancer at age 3; Grandfather-paternal with kidney cancer at age 68. LOCATION: [facility] BREAST COMPOSITION: Heterogeneously dense,which may obscure small masses. FINDINGS: DIAGNOSTIC CATEGORY 0--INCOMPLETE: NEED ADDITIONAL IMAGING EVALUATION. RIGHT BREAST: Suspect 2 rounded masses versus cyst within the posterior lower-outer quadrant, approximately 10 mm in diameter each. Ultrasound evaluation is recommended. LEFT BREAST: No significant suspicious finding. No significant change has occurred. RECOMMENDATIONS: ULTRASOUND: RIGHT BREAST PLEASE NOTE: A NORMAL MAMMOGRAM DOES NOT EXCLUDE THE POSSIBILITY OF BREAST CANCER. A CLINICALLY SUSPICIOUS PALPABLE LUMP SHOULD BE BIOPSIED. Dictated by: Marek Remy M.D. on 08/26/2021 at 13:57 Approved by: Marek Remy M.D. on 08/26/2021 at 14:01 Normal [facility] PAP ACOG PANEL 2: 30 to 65on 08-02-2021 . . Normal [facility] Comment on above: Result Comment: Performed at: WB Performed By: #### [id number] #### [facility] [address] [place] [address] Dr. José Luis Gould Age Gdln ACOG Testing 30-65 Normal [facility] Comment on above: Performed By: #### [id number] #### [facility] [address] [place] [address] Dr. José Luis Gould DIAGNOSIS: Comment Normal [facility] Comment on above: Result Comment: NEGATIVE FOR INTRAEPITHE LIAL LESION OR MALIGNANCY. THIS SPECIMEN WAS RESCREENED PART OF OUR TURRET PUNCH OPERATOR PROGRAM. Performed at: WB Performed By: #### [id number] #### [facility] [address] [place] [address] Dr. José Luis Gould HPV Aptima Negative Normal Negative [facility] Comment on above: Result Comment: This nucleic acid amplif ication test detects fourteen high-risk HPV types (16,18,31,33,35,39,45,51,52,56,58,59,66,68) without differentiation. Performed at: =G Performed By: #### [id number] #### [facility] [address] [place] [address] Dr. José Luis Gould Methodology: Comment Normal [facility] Comment on above: Result Comment: This liquid based ThinPr ep(R) pap test was screened with the use of an image guided system. Performed at: WB Performed By: #### [id number] #### [facility] [address] [place] [address] Dr. José Luis Gould Note: Comment Normal [facility] Comment on above: Result Comment: The Pap smear is a scree nelson test designed to aid in the detection of premalignant and malignant conditions of the uterine cervix. It is not a diagnostic procedure and should not be used as the sole means of detecting cervical cancer. Both false-positive and false-negative reports do occur. . Performed at: WB Performed By: #### [id number] #### [facility] [address] [place] [address] Dr. José Luis Gould Performed by: Comment Normal [facility] Comment on above: Result Comment: Alesia Crouch [employer] nologist (ASCP) Performed at: WB Performed By: #### [id number] #### [facility] [address] [place] [address] Dr. José Luis Gould QC reviewed by: Comment Normal [facility] Comment on above: Result Comment: Milgaro Merino Cytot echnologist (ASCP) Performed at: WB Performed By: #### [id number] #### [facility] [address] [address] [address] José Luis Gould Specimen adequacy: Comment Normal [facility] Comment on above: Result Comment: Satisfactory for evaluat ion. Endocervical and/or squamous metaplastic cells (endocervical component) are present. Performed at: WB Performed By: #### [id number] #### [facility] [address] [address] [address] José Luis Gould Radiologyon 07-28-2021 XR Shoulder 2 Views Normal [facility] Work Phone: Auth for Release of Medical Recordson 11-14-2020 Auth for Release of Medical Records [id number]:127 Normal [facility] Coding Summary.on 05-31-2020 Coding Summary. CODING DATE: FINAL [facility] STATUS: Home (Routine DC) PAYOR: [facility] [place] ADMIT DX: REASON FOR VISIT DX: R05 Cough FINAL DX: PRINCIPAL: R05 Cough SECONDARY: Z20.828 Contact with and (suspected) exposure to other viral communicable diseases PYMT PROC APC STAT DESCRIPTION DOCTOR NAME DATE NOTE: The code number assigned matches the documented diagnosis and / or procedure in the patient's chart. However, the narrative phrase printed from the coding software may appear abbreviated, or result in slightly different terminology. Coded By: Radha Stevenson CphT Date Saved: 05/31/2020 10:55 am Normal [facility] Coding Summary. CODING DATE: [facility] STATUS: Home (Routine DC) PAYOR: [facility] [place] ADMIT DX: REASON FOR VISIT DX: Z20.828 Contact with and (suspected) exposure to other viral communicable diseases FINAL DX: PRINCIPAL: Z20.828 Contact with and (suspected) exposure to other viral communicable diseases SECONDARY: PYMT PROC APC STAT DESCRIPTION DOCTOR NAME DATE NOTE: The code number assigned matches the documented diagnosis and / or procedure in the patient's chart. However, the narrative phrase printed from the coding software may appear abbreviated, or result in slightly different terminology. Coded By: Radha Stevenson CphT Date Saved: 05/31/2020 10:54 am Normal [facility] Ambulatory Clinical Summaryo n 05-16-2020 Ambulatory Clinical Summary {[id number] Normal [facility] COVID-19 ([facility])on 05-16-2020 SARS-CoV-2 (COVID-19) RNA ONEYDA+probe Ql (Unsp spec) Not detected Normal Not Detected [facility] Comment on above: Result Comment: This test result should be correlated with clinical presentations and medical history by a healthcare provider to determine its clinical significance. This assay was performed by a reverse transcriptase real-time polymerase chain reaction (rt PCR) method on the [employer] system. This test has been authorized only for the detection of nucleic acid from SARS-CoV-2, not for any other viruses or pathogens. This test has not been FDA cleared or approved. This test has been authorized by FDA under an Emergency Use Authorization (EUA). This test is only authorized for the duration of time the declaration on that circumstances exist justifying the authorization emergency use of in vitro diagnostic tests for detection and/or diagnosis of COVID-19 infection under section 564 (b) (1) of the Act, 21 U.S.C. 360 bbb-3 (b) (1), unless authorization is terminated or revoked sooner. Performed By: #### [id number] ####[facility] [address] [place] [address] SARS-CoV-2 (COVID-19) RNA ONEYDA+probe Ql (Unsp spec) Pass Normal Pass [facility] Comment on above: Performed By: #### [id number] ####[facility] [address] [place] [address] Specimen source Nom (Unsp spec) Nasal Normal [facility] Comment on above: Performed By: #### [id number] ####[facility] [address] [facility] [place] [address] Employed in Healthcare YES Normal [facility] Comment on above: Performed By: #### [id number] ####[facility] [address] [facility] [place] [address] First Test Unknown Normal [facility] Comment on above: Performed By: #### [id number] ####[facility] [address] [facility] [place] [address] Hospitalized? NO Normal [facility] Comment on above: Performed By: #### [id number] ####[facility] [address] [facility] [place] [address] ICU NO Normal [facility] Comment on above: Performed By: #### [id number] ####[place] [address] [facility] [place] [address] ? Unknown Normal [facility] Comment on above: Performed By: #### [id number] ####[facility] [address] [facility] [place] [address] Resides in a Congregate Care Setting NO Normal [facility] Comment on above: Performed By: #### [id number] ####[facility] [address] [facility] [place] [address] Symptomatic as defined by CDC YES Normal [facility] Comment on above: Performed By: #### [id number] ####[facility] [address] [facility] [place] [address] [facility] Video Visit - Telehealthon 05-16-2020 [facility] Video Visit - Telehealth Chief Complaint Exposure to COVID with symptoms HPI Staff Depression Screening Little Interest, Pleasure in Activities (ref) : Not at all Feeling Down, Depressed, Hopeless : Not at all Initial Depression Screening Score : 0 FT AMB Depression Screening Result : Negative [1] 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 Pt states onset of Tues, symptoms of sore throat, cough, headache, runny nose, chest congestion, body aches, fatigue, SOB with activity. Pt has taken Sudafed and Robitussin for symptoms. History of Present Illness C/O: Duration: wednesday Body aches: yes Chills: no Fatigue: yes Cough: yes Sore throat: yes Fever: no but on ibuprofen Headache: yes Nasal congestion: yes Loss of taste: no Loss of smell: no Eye itching/watering: yes Sneezing: yes SOB: yes Known Exposure: yes 1 week ago Occupation: [employer] Remedies tried: Sudafed, Robitussin Pertinent medical history: Asthma, seasonal allergies I have reviewed and confirmed staff HPI on this encounter Review of Systems ROS - Provider Constitutional: no fever,yeschills, yessweats, yes fatigue ENMT: yes ear pain, yes sore throat, yes congestion, novision change. Respiratory: yes shortness of breath, yes cough, no orthopnea, no wheezing. Cardiovascular: no chest pain, no palpitations, no edema. Neurologic: yesheadache, no dizziness,nonumbness, no weakness. Allergy/Immunologic: yes seasonal allergies, no food allergies, no recurrent infections, no impaired immunity. Physical Exam Vitals & Measurements HT: 152 cm HT: 152.0 cm WT: 77.5 kg WT: 77.5 kg BMI: 33.54 Video PE: Location:home Present with: no one at this time General: Well developed,well nourished, whitefemale, present per video camera. Eyes: Normal appearing conjunctiva, lids, and pupil Ears: external appearance normal, conversational speech intact Mouth: lips and mouth appear within normal limits, pharynx nonerythemic without exudates Face: symmetrical, without dropping. Resp: Non labored resp. effort, no audible wheezing, cough present Neurologic: Grossly normal, no tingling or numbness in fingers or toes Mental Status: Alert and oriented x3. Normal mood and affect Psych: Normal memory, speech, and judgement Assessment/Plan 1. Cough (R05: Cough) Due to symptoms patient a possible COVID-19 Infection. Signs and symptoms discussed with patient. Patient educated to self isolate and wear a mask if available. Patient advised not to leave house for any reason. Self treatment discussed including tylenol for fever, pain or myalgia; cough cold medications for symptoms. Patient to check temperature daily. Monitor for symptoms of respiratory distress. If needs emergent care to notify EMS or ED or our office that he may have COVID to allow for proper PPE and isolation [phone] central scheduling number given. Ordered: SARS-CoV-2, ONEYDA TELEHEALTH Office Visit Level 3 Est 71525 2. Smoker (F17.200: Nicotine dependence, unspecified, uncomplicated) We strongly recommend to quit tobacco use. Cigarette smoking harms nearly every organ of the body, causes many diseases, and reduces the health of smokers in general. Quitting smoking lowers your risk for smoking-related diseases and can add years to your life. We encourage you to visit www.smokefree.gov access to helpful resources including free telephone support. If you decide on prescription treatment to help you quit, we would be happy to provide these. Ordered: Current tobacco smoker 1034F TELEHEALTH Office Visit Level 3 Est 32139 This visit was conducted via two-way video communications using [employer] due to the restrictions of the COVID-19 pandemic. All issues as below were discussed and addressed but no physical exam was conducted other than those areas of the body visible to telecommunications. If it is determined that the patient should be evaluated in the clinic, the patient will be directed to the appropriate clinic or venue. The patient or their guardian verbally consented to this visit. Video time was 20 minutes with the patient face to face greater than 50% in addition to counseling and coordination of care. Follow-up With When Contact Information Neema Lay Only if needed [email or web address] Additional Instructions: Patient Education Fever, Adult, Iyuq-kr-Nbiy Problem List/Past Medical History Ongoing ASTHMA delivery NOS Cholecystectomy D&C Family history of heart disease hernia repair Hyperlipidemia Leukocytosis Neurocardiogenic syncope No contraindication to venous thromboembolism prophylaxis Smoker TMJ arthritis Historical diagnostis Lap Tremor Procedure/Surgical History , Cholecystectomy, Dilation and curettage, Hernia repair, Rotator cuff repair. Medications Benadryl, 25 mg, Oral, Once a day (at bedtime), PRN buPROPion 100 mg ER Tab, 100 mg= 1 tab(s), Oral, BID, 3 refills (more content not included)... Normal [facility] Comment on above: Result Comment: Electronically Signed By : Neema Lay\.br\Date and Time Signed: 05/16/20 11:43 EDT Patient Educationon 05-16-20 20 Patient Education Fever, Adult A fever is a temperature of 100.4? F (38? C) or above. HOME CARE ? Take fever medicine as told by your doctor. Do not take aspirin for fever if you are younger than 19 years of age. ? If you are given antibiotic medicine, take it as told. Finish the medicine even if you start to feel better. ? Rest. ? Drink enough fluids to keep your pee (urine ) clear or pale yellow. Do not drink alcohol. ? Take a bath or shower with room temperature water. Do not use ice water or alcohol sponge baths. ? Wear lightweight, loose clothes. GET HELP RIGHT AWAY IF: ? You are short of breath or have trouble breathing. ? You are very weak. ? You are dizzy or you pass out (faint ). ? You are very thirsty or are making little or no urine. ? You have new pain. ? You throw up (vomit ) or have watery poop (diarrhea ). ? You keep throwing up or having watery poop for more than 1 to 2 days. ? You have a stiff neck or light bothers your eyes. ? You have a skin rash. ? You have a fever or problems (symptoms ) that last for more than 2 to 3 days. ? You have a fever and your problems quickly get worse. ? You keep throwing up the fluids you drink. ? You do not feel better after 3 days. ? You have new problems. MAKE SURE YOU: ? Understand these instructions. ? Will watch your condition. ? Will get help right away if you are not doing well or get worse. Document Released: 04/13/2009 Document Revised: 09/26/2012 Document Reviewed: 05/05/2012 ExitCare? Patient Information ?2013 [employer] [facility] Provider Letteron 05-16-2020 Provider Letter (Inserted Image. Alice ble to display) May 16, 2020 ALINA GUTIERRES [address] [place] [address] To Whom It May Concern, Please excuse above patient from work. Date of Illness: From: 05/16/20 May Return to Work On: pending test results Sincerely, Neema Morrissey APRN, REELING MACHINE SETUP OPERATOR-C [facility] [address] [place] [address] Please [email or web address] Normal [facility] Coding Summary.on 01-09-2020 Coding Summary. CODING DATE: 020 FINAL [facility] STATUS: Home (Routine DC) PAYOR: [facility] [place] ADMIT DX: REASON FOR VISIT DX: Z13.1 Encounter for screening for diabetes mellitus E78.5 Hyperlipidemia, unspecified R00.0 Tachycardia, unspecified FINAL DX: PRINCIPAL: Z13.1 Encounter for screening for diabetes mellitus SECONDARY: E78.5 Hyperlipidemia, unspecified R00.0 Tachycardia, unspecified PYMT PROC APC STAT DESCRIPTION DOCTOR NAME DATE NOTE: The code number assigned matches the documented diagnosis and / or procedure in the patient's chart. However, the narrative phrase printed from the coding software may appear abbreviated, or result in slightly different terminology. Coded By: Annamaria Smith Date Saved: 01/09/2020 12:21 pm Normal [facility] Consent for Treatmenton 12-17 Consent for Treatment [id number]#1.00CD:127 Normal [facility] Lipid Panelon 01-04-2020 Cholesterol [Mass/Vol] 267 mg/dL High 120-200 [facility] Comment on above: Performed By: #### [id number] ### #[facility] [address] [place] [address] Cholesterol in HDL [Mass/Vol] 41 mg/dL Invalid Interpretation Code [facility] Comment on above: Result Comment: HDL > or equal to 60 mg/ dL: Low cardiovascular risk HDL < 40 mg/dL : High cardiovascular risk Performed By: #### [id number] ####[facility] [address] [place] [address] Cholesterol in LDL [Mass/Vol] 197 mg/dL High <=129 [facility] Comment on above: Performed By: #### [id number], [id number] ### #[facility] [address] [place] [address] Cholesterol in VLDL [Mass/Vol] 40 mg/dL Normal 7-40 [facility] Comment on above: Performed By: #### [id number], [id number] ### #[facility] [address] [place] [address] Triglyceride [Mass/Vol] 202 mg/dL High <=149 [facility] Comment on above: Performed By: #### [id number], [id number] ### #[facility] [address] [place] [address] Physician Orderon 01-04-2020 Physician Order [id number]#[id number]:127 Normal [facility] Reminderson 01-04-2020 Reminders - From: Rhonda SOMERS NP To: [facility] - Clinical; Sent: 01/04/2020 14:27:35 EDT Show up: 01/04/2020 14:27:00 EDT Subject: Ambulatory Reminder Due Date/Time: 01/05/2020 14:26:00 EDT Labs back. Cholesterol high, VCG283. Would suggest statin choelsterol med. Is patient okay with this? Results: Date Result Name Ind Value Ref Range 01/04/2020 11:19 Chol ((H)) 267 mg/dL (120 - 200) 01/04/2020 11:19 Trig ((H)) 202 mg/dL ( - <=149) 01/04/2020 11:19 HDL 41 mg/dL 01/04/2020 11:19 LDL Direct ((H)) 197 mg/dL ( - <=129) 01/04/2020 11:19 VLDL 40 mg/dL (7 - 40) 01/04/2020 11:19 TSH 3.57 mcIU/mL (0.34 - 5.60) PT HAS BEEN NOTIFIED AND HAS VERBALIZED A CLEAR UNDERSTANDING. STATES SHE HAS TRIED A COUPLE AND ALWAYS HAD SE. THE LAST ONE (SHE CANNOT REMEMBER WHAT IT WAS) MAYBE SIMVISTATIN SHE HAD THE LEAST SE FROM. From: Rhonda SOMERS NP To: [facility] - Clinical; Sent: 01/04/2020 15:25:49 EDT Show up: 01/04/2020 15:25:00 EDT Subject: RE: Ambulatory Reminder we can try crestor? This is good med and does not cause a lot of SE> PT HAS BEEN NOTIFIED AND HAS VERBALIZED A CLEAR UNDERSTANDING Normal [facility] TSH With T4fr Reflexon 01-03 TSH Qn 3.57 m[IU]/L Normal 0.34-5.60 [facility] Comment on above: Performed By: #### [id number], [id number] ### #[facility] [address] [place] [address] ECG 12-Leadon 12-22-2019 ECG 12-Lead [id number]#1.00CD:127 Normal [facility] Ambulatory Clinical Summaryo n 12-21-2019 Ambulatory Clinical Summary {[id number]}CD:[id number] Normal [facility] History and Physical Chris 1 History and Physical PAT MTDD [facility] OPERATIVE REPORTon 7 OPERATIVE REPORT Name: ALINA GUTIERRESMR: [id number]: Cade Bae M.D.DATE OF SURGERY:ADDENDUM: The previous note I had dictated for Alina Gutierres, medical record#[id number], job number was [id number], was dictated an error. Please dictate thatnote. A new dictation note will be dictated shortly. Cade BAE M.D./[facility]/[id number]: 05/11/2017 21:03:28 E/S: Cade Bae MD/ 1426Signature on File [facility] ALINA [id number] [place] [address] [id number]: Cade Bae MDOPERATIVE REPORT [facility] OPERATIVE REPORT Name: ALINA GUTIERRESMR: [id number]: Cade Bae M.D.DATE OF SURGERY: 05/11/2017PREOP DIAGNOSIS: Senile nuclear sclerotic cataract, right eye.POSTOP DIAGNOSIS: Senile nuclear sclerotic cataract, right eye.OPERATION: Cataract extraction with intraocular lens implants.ANESTHESIA: General anesthesia.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 Risks, benefits, andalternatives of surgery were discussed with the patient and family, whoelected to proceed. Topical medications were used for dilation and ocularsurface anesthesia. The patient was brought to the operating room and placedin supine position. General anesthesia was initiated. The eye was preppedand draped in usual sterile ophthalmic fashion and the operating microscopewas brought into place. A peripheral corneal paracentesis wound was made 90degrees clockwise from the temporal position. Intracameral anesthesia anddilation were enhanced with lidocaine irrigation. Trypan blue was used tostain the capsule due to poor red reflex. Viscoelastic was used to fill theanterior chamber. A 2.65 clear corneal wound was constructed temporally.Dilation was poor, so an iris washer operator was used to open the pupil wider.Cystotome and Utrata forceps were used to create a continuous curvilinearcapsulorrhexis. BSS on a cannula was used for hydrodissection. Thelenticular nucleus was removed using phacoemulsification and a secondinstrument to chop. The irrigation and aspiration handpiece was used toremove the remaining cortical material. Viscoelastic device was used toinflate the capsular bag and the intraocular lens was inserted into thecapsular bag and centered. It was an Lc AcrySof IQ SN60WF 22.0 diopters.The iris washer operator ring was removed. Viscoelastic was removed with irrigationaspiration. A 9-0 Vicryl suture placed in the clear corneal wound. Anteriorchamber was reformed with BSS on a cannula. Intra-ocular Vigamox solution wasinstilled into the anterior chamber. Lid speculum removed. Area cleaned and [facility] [id number] [place] [id number]: Cade Bae MDOPERATIVE REPORTantibiotic anti-inflammatory drops placed in the eye. The patient toleratedthe procedure well without complications and sent to the recovery room withoutincident. Follow up 1 day with . .POSTOP MEDICATIONS: Antibiotic, steroid, and NSAID ophthalmic combinationdrop. KRISTOPHER Mercado/Isaura/[id number]: 05/11/2017 20:26:44 E/S: Cade Bae MD/ 1426Signature on File [facility] ALINA [id number] [place] [address] [id number] 80DICTATING DR: Cade Bae MDOPERATIVE REPORT [facility] OPERATIVE REPORT Name: ALINA GUTIERRESMR: [id number]: Cade Bae M.D.DATE OF SURGERY: 05/11/2017(Please note that this is the correct dictation for her, whereas the previousone was incorrect).PREOP DIAGNOSIS: Alternating esotropia.POSTOP DIAGNOSIS: Alternating esotropia.PROCEDURE: Bilateral medial rectus recession, 3.5 mm.ANESTHESIA: General anesthesia.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 General anesthesia was initiated. The patient was preppedand draped in the usual sterile ophthalmic fashion. Attention was turned tothe left eye. A forniceal incision in the conjunctiva was made medially withWestcott scissors. The medial rectus muscle was identified and isolated on amuscle hook. Overlying conjunctiva and Tenon's tissue were draped aside. Adouble-armed 6-0 Vicryl suture was pre-placed in the edge of the muscle, 0.5mm from the insertion. The muscle was disinserted from the globe withWestcott scissors. Cautery was used for hemostasis. Using the pre-placedsuture, the edge of the muscle was reinserted into the globe, 3.5 mm posteriorto the original insertion as measured with calipers. The position andsecurity of the muscle were inspected and found to be satisfactory. Overlyingconjunctiva was closed with several 6-0 Vicryl sutures. Attention was turnedto the right eye, where the identical procedure was performed on the medialrectus muscle. Antibiotic steroid ointment was placed in each eye and thepatient was awakened and sent to the recovery area in good condition. Followup in 1 week. [facility] DAMARIS [id number] [place] [address] [id number]: Cade Bae MDOPERATIVE REPORTPOSTOP MEDICATIONS: Antibiotic steroid ointment at night for 1 week. KRISTOPHER Mercado/Isaura/[id number]: 05/11/2017 21:49:29 E/S: Cade Bae MD08/06/17 1426Signature on File [facility] DAMARIS [id number] [place] [address] [id number] 80DICTATING DR: Cade Bae MDOPERATIVE REPORT [facility] PREG URINE QUALon 05-11-2017 UR HCG QUAL Negative [facility] Comment on above: Order Comment: Comments To Phleb: COMING FROM [facility]: MAIN Performed By: #### L UPREG ####[facility] [address] [place] [address] Vital Signs Date Time Vital Sign Value Performing Clinician Omar sánchez 02-02-2023 00:00-0400 230 1 Lex Stein [place] Work Phone: [facility] [employer] 250 DO Work Phone: Comment on above: FSLDL 01-27-2023 08:50-0400 Diastolic blood pressure 86 mm[Hg] Lex Stein [place] Work Phone: [facility] [employer] 250 DO Work Phone: 01-27-2023 08:50-0400 Systolic blood pressure 108 mm[Hg] Rubyen Sarita [place] Work Phone: [facility] [employer] 250 DO Work Phone: 01-27-2023 08:49-0400 Diastolic blood pressure 78 mm[Hg] Rugen M Ca Work Phone: [facility] 250 DO Work Phone: 01-27-2023 08:49-0400 Systolic blood pressure 112 mm[Hg] Rugen M Ca Work Phone: [facility] 250 DO Work Phone: 01-27-2023 08:48-0400 Body height 152.4 cm Rugen M Ca Work Phone: [facility] 250 DO Work Phone: 01-27-2023 08:48-0400 Body mass index (BMI) [Ratio] 38.08 kg/m2 Rugen M [place] Work Phone: [facility] 250 DO Work Phone: 01-27-2023 08:48-0400 Body surface area Derived from formula 1.85 m2 Rugen M [place] Work Phone: [facility] 250 DO Work Phone: 01-27-2023 08:48-0400 Body weight 88.45 kg Rugen M [place] Work Phone: [facility] 250 DO Work Phone: 01-27-2023 08:48-0400 Heart rate 95 /min Rugen M [place] Work Phone: [facility] 250 DO Work Phone: 07-28-2021 14:28-0500 Body height 152.4 cm Rugen M [place] Work Phone: [facility] Work Phone: 07-28-2021 14:28-0500 Body mass index (BMI) [Ratio] 35.15 kg/m2 Rugen M Ca Work Phone: [facility] [place] Work Phone: 07-28-2021 14:28-0500 Body surface area Derived from formula 1.78 m2 Lex Penaloza Work Phone: [facility] [place] Work Phone: 07-28-2021 14:28-0500 Body weight 81.65 kg Lex Penaloza Work Phone: [facility] [place] Work Phone: Encounters Encounter Date Encounter Type Care Provider Facility Start: 12-29-2023 End: 12-29-2023 ambulatory AUSTEN W JUSTIN Not Available Start: 12-14-2023 End: 12-14-2023 ambulatory KATIE M HEMMER Not Available Start: 11-01-2023 End: 11-01-2023 ambulatory AUSTEN W JUSTIN Not Available Start: 10-06-2023 End: 10-06-2023 ambulatory KATIE HEMMER Not Available Start: 09-27-2023 End: 09-27-2023 ambulatory AUSTEN W JUSTIN Not Available Start: 09-20-2023 End: 09-20-2023 ambulatory AUSTEN W JUSTIN Not Available Start: 09-08-2023 End: 09-08-2023 ambulatory AUSTEN W JUSTIN Not Available Start: 07-23-2023 End: 07-23-2023 ambulatory KATIE M HEMMER Not Available Start: 07-06-2023 End: 07-06-2023 ambulatory KATIE M HEMMER Not Available Start: 06-07-2023 End: 06-07-2023 ambulatory Roberto Carlos Layne Other [employer] [facility] [employer] Other Start: 06-07-2023 Office outpatient ne w 45 minutes Roberto Carlos Layne [facility] Start: 06-01-2023 End: 06-01-2023 ambulatory KATIE M HEMMER Not Available Start: 02-25-2023 Chart Update [facility] Work Phone: Start: 2023 Patient encounter procedure Rugen M [place] Work Phone: [facility] 600 DO Work Phone: Start: [address] Edward Hammond Facility:[id number] Start: 01-27-2023 Office consultation new/estab patient 60 min Rugen M Ca [facility] Work Phone: Start: 01-27-[address] Edward Hammond Facility:[id number] Start: 03-05-2022 End: 03-06-[address] LEX PENALOZA Facility:H1 Start: 09-02-2021 End: 09-03-[address] MANE GUILLEN Facility:H1 Start: 08-26-2021 End: 08-27-[address] MANE GUILLEN Facility:H1 Start: 07-30-2021 End: 07-30-[address] MANE GUILLEN Facility:H1 Start: 07-28-2021 Patient encounter procedure Rugen M Ca Work Phone: [facility] Work Phone: Start: 05-11-2017 Ambulatory Cade Bae Facility: [facility] Procedures Date Procedure Procedure Detail Performing Clinician Arthroscopy of shoulder Ruge n M Ca Work Phone: section Rugen M Ald a Work Phone: Dilation and curettage Rugen M [place] Work Phone: Esophagogastroduodenoscopy R ugen M [place] Work Phone: Operation on gallbladder Rug en M Ca Work Phone: Surgical procedure on eye proper Rugen M Ca Work Phone: Plan of Treatment Date Care Activity Detail Author Start: 2023 STRESS MARY, Provider : MARU POON [id number], Status: Pen, Time: 11:30 AM STRESS MARY, [facility],[id number], Status: Pen, Time: 11:30 AM [place] [address] DO Work Phone: Start: 09-03-2021 FUV, Provider: Cade Ramos, Status: Pen, Time: 1:00 PM FUV, Provider: Cade Ramos, Status: Pen, Time: 1:00 PM [facility] Work Phone: Immunizations Immunization Date Immunization Notes Care Provider Wanda mars 06-29-2017 tetanus toxoid, redu odilon diphtheria toxoid, and acellular pertussis vaccine, adsorbed Rugen M Ca Work Phone: [place] [address] DO Work Phone: 06-04-2017 influenza, injectabl e, quadrivalent, preservative free Rugen M Ca Work Phone: [place] [address] DO Work Phone: Payers Date Payer Category Payer Unknown [id number] 2.16.84 [id number] 1980 Unknown [id number] 2.16.84 [id number] 1980 Unknown [id number] 2.16.84 0.1.176378.3.579.2.593 1980 Unknown [id number] 2.16.84 0.1.954054.3.579.2.593 1980 Unknown [id number] 2.16. [id number] 1980 Unknown [id number] 2.16.8 40.1.507364.3.579.2.1068 1980 Unknown [id number] 2.16.84 0.1.418969.3.579.2.1259 1980 Unknown [id number] 2.16.84 0.1.144029.3.579.2.1258 1980 Unknown [id number] 2.16.84 0.1.364111.3.579.2.1258 1980 Unknown [id number] 2.16.84 0.1.479058.3.579.2.1258 1980 Unknown [id number] 2.16.84 0.1.583122.3.579.2.1258 1980 Unknown [id number] 2.16.84 0.1.735054.3.579.2.1258 1980 Unknown [id number] 2.16.84 0.1.076599.3.579.2.1258 1980 Unknown [id number] 2.16.840 .1.551609.3.579.2.1258 1980 Unknown [id number] 2.16.840 .1.567700.3.579.2.1258 1980 Unknown [id number] 2.16.840. 1.445635.3.579.2.9 1959 Unknown [id number] 1959 Unknown [id number] Unknown [id number] Unknown Social History Date Type Detail Facility Current smoker Current [facility] Work Phone: Sex Assigned At Sex Assigned At [facility] [employer] Other Evaluation note 06-07-2023 Note Date & Type Note Facility 06-07-2023 Evaluation note Encounter Date Diagnosis Assessment Notes May, Right arm pain (ICD-10 - M79.601) May, Other [Right arm pain By her history and physical examination she does not have any clear indication of arterial compression. It is possible that she could have neurogenic thoracic outlet syndrome. I called PUAL Kingston who is her primary care provider. I discussed her physical exam and history with her. If she wishes to continue evaluation for potential neurogenic thoracic outlet syndrome then a neurology referral would be helpful. I will see her back on an as-needed basis. [employer] Other Chief complaint Narrative - Reported 04-17-2023 Note Date & Type Note Facility 04-17-2023 Chief complaint Narrative - Reported ALINA GUTIERRES is being seen for a consultation for intermittent chest pain.42-year-old female seen in cardiology consultation at the request of Dr. Anderson for further evaluation in regards to chest discomfort. Approximately within the last 2 weeks he sustained 1 episode of severe anterior and retrosternal chest discomfort that was excruciating in nature, went to [place] ER, ruled out for acute coronary syndrome and was discharged home. Details of the [place] emergency room evaluation are unavailable. She apparently had CT of the chest that was unremarkable.She has no prior history of myocardial infarction, revascularization, stroke, thromboembolic or bleeding disorderShe professes that she does have a strong family history including father and grandfather at early ages for myocardial infarctions/sudden .Today's ECG is normal sinus rhythm and completely normalShe denies diabetes, does admit to vaping but negative cigarette use, she is a former smoker. 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 [facility] Work Phone: Chief complaint Narrative - Reported 01-13-2023 Note Date & Type Note Facility 01-13-2023 Chief complaint Narrative - Reported ALINA GUTIERRES is being seen for a consultation for intermittent chest pain.42-year-old female seen in cardiology consultation at the request of Dr. Anderson for further evaluation in regards to chest discomfort. Approximately within the last 2 weeks he sustained 1 episode of severe anterior and retrosternal chest discomfort that was excruciating in nature, went to [place] ER, ruled out for acute coronary syndrome and was discharged home. Details of the [place] emergency room evaluation are unavailable. She apparently had CT of the chest that was unremarkable.She has no prior history of myocardial infarction, revascularization, stroke, thromboembolic or bleeding disorderShe professes that she does have a strong family history including father and grandfather at early ages for myocardial infarctions/sudden .Today's ECG is normal sinus rhythm and completely normalShe denies diabetes, does admit to vaping but negative cigarette use, she is a former smoker. 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 -[facility] 250 DO Work Phone: Clinical Note 04-06-2022 Note Date & Type Note Facility 04-06-2022 Note HISTORY: Head trauma x 3 weeks, headache, memory loss PROCEDURE: Without IV contrast, images of the brain were performed. FINDINGS: No worrisome intra- or extra-axial mass lesions, mass effect or hemorrhage are identified. No evidence of major vessel ischemia is noted. Ventricular size is normal for this age, and commensurate with the cerebral sulci. Calvarium, mastoid air cells, paranasal sinuses and orbital contents are unremarkable. IMPRESSION: Normal non-contrast brain CT. Report reported and signed by Gerry Ott on 04/06/2022 1524 [facility] [employer] History of Present illness Narrative 12-28-2020 Note Date & Type Note Facility 12-28-2020 History of Presen t illness Narrative Ms. Gutierres is here for her right shoulder. She has been having some increased pain in the shoulder for the last several months. She had a large rotator cuff tear back in 2013 and did well afterwards. She also had some neck issues at that time. She does get occasional numbness, tingling and burning as well as pain radiating down the arm. She is concerned about the shoulder pain and is here today as a new patient. -[facility] [place] Work Phone: History general Narrative - Reported Note Date & Type Note Facility History general Narrative - Reported Type Medical History anxiety Medical History chronic depression Medical History acid reflux Medical History back pain Medical History degenerative disc disease Medical History hypercholesterolemia Surgical History rotator cuff tear repair rt Surgical History hernia repair Surgical History cholecystectomy Surgical History C section Surgical History D&C Surgical History cross eye b/l correction Hospitalization History See Above [employer] Other Summary Purpose Family History No Family History Records FoundUnknown Family Member Name Dates Details Family history of hypertensi on: Father(V17.49, Z82.49) Status:Active Family history of myocardial infarction: Father(V17.3, Z82.49) Status:Active Family history of diabetes m ellitus: Mother(V18.0, Z83.3) Status:Active Unknown Family Member Name Dates Details Family history of hypertensi on: Father(V17.49, Z82.49) Status:Active Family history of myocardial infarction: Father(V17.3, Z82.49) Status:Active Family history of diabetes m ellitus: Mother(V18.0, Z83.3) Status:Active Unknown Family Member Name Dates Details Family history of hypertensi on: Father(V17.49, Z82.49) Status:Active Family history of myocardial infarction: Father(V17.3, Z82.49) Status:Active Family history of diabetes m ellitus: Mother(V18.0, Z83.3) Status:Active Unknown Family Member Name Dates Details Family history of diabetes m ellitus: Mother(V18.0, Z83.3) Status:Active Family history of myocardial infarction: Father(V17.3, Z82.49) Status:Active Family history of hypertensi on: Father(V17.49, Z82.49) Status:Active Advance Directives No Advanced Directives Records FoundNo Advanced Directives Records FoundNo Advanced Directives Records FoundNo Advanced Directives Records FoundNo Advanced Directives Records FoundNo Advanced Directives Records FoundNo Advanced Directives Records FoundNo Advanced Directives Records Found 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, 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 * Hx of Rt RCR 08/01/13 by SARANYA Additional Source Comments INFORMATION SOURCE (unrecogn ized section and content) DATE CREATED AUTHOR 01/10/2018 [facility] DATE CREATED AUTHOR AUTHOR'S ORGANIZ ATION 11/15/2020 [facility] DATE CREATED AUTHOR AUTHOR'S ORGANIZ ATION 04/19/2022 [facility] dical Specialist DATE CREATED AUTHOR AUTHOR'S ORGANIZ ATION 05/11/2022 [facility] DATE CREATED AUTHOR AUTHOR'S ORGANIZ ATION 01/28/2023 [employer] DATE CREATED AUTHOR AUTHOR'S ORGANIZ ATION 01/30/2023 [facility] DATE CREATED AUTHOR AUTHOR'S ORGANIZ ATION 02/12/2023 [facility] DATE CREATED AUTHOR AUTHOR'S ORGANIZ ATION 12/30/2023 [facility] dical Specialists EPIC REASON FOR VISIT (unrecogniz ed section and content) Referred by Katie Olson for Thoracic Outlet Syndrome, Right arm pain FOR RECORDS PERTAINING TO PATIENTS WHO ARE OR HAVE BEEN ENROLLED IN A CHEMICAL DEPENDENCY/SUBSTANCEABUSE PROGRAM, SOME INFORMATION MAY BE OMITTED. This clinical summary was aggregated from multiple sources. Caution should be exercised in using it in the provision of clinical care. This summary normalizes information from multiple sources, and as a consequence, information in this document may materially change the coding, format and clinical context of patient data. In addition, data may be omitted in some cases. CLINICAL DECISIONS SHOULD BE BASED ON THE PRIMARY CLINICAL RECORDS. [facility] [employer] provides no warranty or guarantee of the accuracy or completeness of information in this document.
== END 2024-02-22 20:04 | disposition home or self-care (01) ==
LOC: LAB 20:03
PROVIDERS: PCP Family Medicine; Visit Provider Obstetrics & Gynecology
DX: Z01.419 Encounter for gynecological examination (general) (routine) without abnormal findings (principal)
CPT/HCPCS: 87624; 88175

== ENCOUNTER 2024-08-31 13:35 | Outpatient (OUT) | payer OTHER, SELFPAY ==
--- OUTSIDE RECORDS SUMMARY | 2024-08-31 13:40 | XMS_ITS | CCD ---
Author Organization [facility] CliniSymn Care Team Providers Care Patent Leather Sorter Name Role Phone Cade Bae Unavailable Unavailable Family Physician Unavailable Unavailable Alice vailable Family Physician Unavailable Unavailable Alice vailable Shanon Penaloza Unavailable Unavailable Unavailable CA, DR CLAUDIO Admitting Unavailable CA, DR CLAUDIO Attending Unavailable CA, DR CLAUDIO Consulting Unavailable ZIEBER, DR EM Shah Consulting Unavailable MINDY, DR GILLIAM Admitting Unavailable MINDY, DR GILLIAM Attending Unavailable MINDY, DR GILLIAM Consulting Unavailable MINDY, DR GILLIAM Admitting Unavailable MINDY, DR GILLIAM Attending Unavailable MINDY, DR GILLIAM Consulting Unavailable ZIEBER, DR EM Shah Consulting Unavailable MINDY, DR GILLIAM Admitting Unavailable MINDY, DR GILLIAM Attending Unavailable SUTHERLAND, DR JHON Smith Consulting Unavailable MINDY, DR GILLIAM Consulting Unavailable Renny, Dr. Stanislaw Rockwell Referring Unava ilable Renny, Dr. Stanislaw Rockwell Attending Unava ilable Ca, Dr. Shanon Bush Primary Care Unavaila ble Renny, Dr. Stanislaw Rockwell Attending Unava ilable Ca, Dr. Shanon Bush Primary Care Unavaila Roberto Carlos Motta Unavailable Shanon Penaloza MD Primary Care Provider HUANG OLSON Attending Unavailable AUSTEN ROMERO Attending Unavailable HUANG OLSON Referring Unavailable AUSTEN ROMERO Referring Unavailable AUSTEN ROMERO Referring Unavailable AUSTEN ROMERO Attending Unavailable HUANG OLSON Attending Unavailable HUANG OLSON Attending Unavailable AUSTEN ORMERO Attending Unavailable CATRACHO LEWIS Attending Unavailable HUANG OLSON Attending Unavailable AUSTEN ROMERO Attending Unavailable ANAMARIA METCALF Attending Unavailable SARABJIT IRENE Attending Unavailable WINDNACELESTINO, SARABJIT Admitting Unavailable HERMES IRENEICIA Attending Unavailable Austen Romero Admitting Unavailable Austen Romero Attending Unavailable KAZ IRENEA Attending Unavailable TEVIN, SARABJIT Admitting Unavailable Moiz Schneider DO Primary Care Provider Jorge Walden MD Attending Provider Jorge Walden Attending Unavailable Jorge Walden Admitting Unavailable Moiz Schneider Primary Care Unavailable Allergies Allergy Classification Reported Allergen(s) Allergy Type Date of Onset Reaction(s) Facility (6 sources) Acetaminophen / HYDROcodone; Translations: [Vicodin TABS] Drug Allergy [facility] Work Phone: (20 sources) Codeine; Translations: [Codeine Derivatives] Drug Allergy 12-30-19 23 swelling, Unknown [facility] Work Phone: (8 sources) natural latex rubber; Translations: [Latex] Allergy to substance (finding) 06-07-20 [facility] Repository (7 sources) Penicillins; Translations: [Penicillins] Allergy to drug (finding) 06-07-20 23 [facility] (3 sources) Acetaminophen / HYDROcodone; Translations: [Vicodin] Drug Allergy 12-24-19 21 [facility] Repository (3 sources) Codeine; Translations: [codeine] Drug Allergy 12-24-19 21 Swelling [facility] Repository (1 source) Latex Drug allergy (disorder) 12-24-19 21 [facility] Repository (3 sources) Penicillin; Translations: [penicillin] Drug Allergy 12-24-19 21 [facility] Repository (1 source) Latex Drug allergy [facility] Affectv Other (11 sources) Acetaminophen / HYDROcodone Drug Allergy 12-01-19 12 [facility] (20 sources) HYDROcodone Drug Allergy 12-30-19 23 Unknown [facility] (19 sources) Latex Allergy to substance 12-30-19 23 Unknown [facility] (19 sources) Penicillins Drug Allergy 12-30-19 Unknown [facility] Healthcare (8 sources) DULoxetine Drug Allergy 06-28-20 Other [facility] Healthcare (8 sources) Topiramate Propensity to adverse reactions 06-28-20 Other [facility] Healthcare (2 sources) Acetaminophen; Translations: [acetaminophen] Drug Allergy 06-07-20 [facility] (1 source) Codeine Drug Allergy 06-07-20 [facility] Repository (1 source) HYDROcodone Drug Allergy 06-07-20 [facility] Repository (1 source) Latex Drug allergy (disorder) 06-07-20 [facility] Repository (1 source) Penicillins Drug allergy (disorder) 06-07-20 [facility] Repository Medications Current Medications Medication Drug Class(es) Dates Sig (Normalized) Sig (Original) [id number] 200 actuat albuterol 0.09 mg/actuat metered dose inhaler (19 sources) beta2-Adrenergi c Agonist take 1 puff(s) by inhalation every four hours for wheezing albuterol HFA (ProAir HFA) 90 mcg/act inhaler Inhale 1 puff every 4 (four) hours if needed for wheezing or shortness of breath. Active Atogepant (Qulipta) 60 MG tablet (2 sources) Start: 08-30-2024 End: 08-30-2025 take 1 tablet by mouth once daily Atogepant (Qulipta) 60 MG tablet Indications: Migraine without aura and without status migrainosus, not intractable (CMS/HCC) Take 60 mg by mouth Daily 90 tablet 2 08/30/2024 08/30/2025 Active atorvastatin 40 mg oral tablet (20 sources) HMG-CoA Reductase Inhibitor Start: 01-24-2024 take 1 tablet by mouth in the morning atorvastatin (Lipitor) 40 MG tablet Indications: Pure hypercholesterolemia (CMS/HCC) Take 1 tablet (40 mg) by mouth in the morning. 100 tablet 3 01/24/2024 Active take 1 tablet by jacquie th every twenty-four hours Atorvastatin Calcium 40 MG 1 tablet Oral ly Once a day Active 12 hr buPROPion hydrochloride 150 mg extended release oral tablet (20 sources) Aminoketone Start: 09-20-2023 take 1 tablet by mouth twice daily buPROPion SR (Wellbutrin SR) 150 MG 12 hr tablet Indications: Mood changes TAKE 1 TABLET BY MOUTH TWICE A DAY 60 tablet 11 09/20/2023 Active Wellbutrin Activ e Wellbutrin TABS TAKE 1 TABLET EVERY 12 HOURS DAILY. Quantity: 0 Refills: 0 Ordered: 27-Jan-2023 DO Active Wellbutrin TABS Quantity: 0 Refills: 0 Ordered: 28-Jul-2021 DO Active cefdinir 300 mg oral capsule (5 sources) Cephalosporin Antibacterial Start: 06-22-2024 End: 07-02-2024 take 1 capsule by mouth in the morning cefdinir (Omnicef) 300 MG capsule Indications: Acute non-recurrent frontal sinusitis Take 1 capsule (300 mg) by mouth in the morning and 1 capsule (300 mg) before bedtime. Do all this for 10 days. 20 capsule 06/22/2024 07/02/2024 Active cholecalciferol 0.125 mg oral capsule (19 sources) Vitamin D Cholecalciferol (Vitamin D) 125 MCG (5000 UT) capsule Active cinnamon bark 500 mg oral capsule (19 sources) take 1 capsule by mouth in the morning cinnamon 500 MG capsule Take 500 mg by mouth in the morning. Active Collagen-Vitamin C-Biotin (COLLAGEN 1500/C PO) (19 sources) take 1 tablet by mouth once daily Collagen-Vitamin C-Biotin (COLLAGEN 1500/C PO) Take 1 tablet by mouth 1 (one) time each day. Active dexamethasone 2 mg oral tablet (11 sources) Corticosteroid Start: 06-19-2024 End: 06-29-2024 dexAMETHasone (Decadron) 2 MG tablet Indications: Radiculopathy of sacral region 2mg 3 pills po X3 days,2 pills po daily X3 days , then 1 pill po daily X3 days then stop 9 days 18 pills 18 tablet 1 06/19/2024 Active 24 hr dexmethylphenidate hydrochloride 10 mg extended release oral capsule (20 sources) Central Nervous System Stimulant Start: 08-28-2024 End: 09-27-2024 take 1 capsule by mouth once daily dexmethylphenidate XR (Focalin XR) 10 MG 24 hr capsule Indications: Postconcussion syndrome , ADD (attention deficit disorder) without hyperactivity Take 1 capsule (10 mg) by mouth Daily Do not crush, chew, or split. 30 capsule 08/28/2024 09/27/2024 Active Start: 05-09-2024 End: 08-26-2024 take 1 capsule by mouth once daily dexmethylphenidate XR (Focalin XR) 10 MG 24 hr capsule Indications: Postconcussion syndrome , ADD (attention deficit disorder) without hyperactivity Take 1 capsule (10 mg) by mouth Daily Do not crush, chew, or split. 30 capsule 07/24/2024 08/26/2024 Discontinued (Reorder) Start: 03-02-2024 End: 05-07-2024 take 1 capsule by mouth once daily dexmethylphenidate XR (Focalin XR) 10 MG 24 hr capsule Indications: Postconcussion syndrome , ADD (attention deficit disorder) without hyperactivity Take 1 capsule (10 mg) by mouth Daily Do not crush, chew, or split. 30 capsule 04/05/2024 05/07/2024 Discontinued (Reorder) diphenhydrAMINE hydrochlorid e 25 mg oral tablet (20 sources) Histamine-1 Receptor Antagonist diphenhydrAMINE (JAYESH ADryl) 25 MG tablet Take 50 mg by mouth as needed at bedtime for allergies. Active Benadryl Active fluconazole 150 mg oral tablet (6 sources) Azole Antifungal Start: 06-22-2024 End: 07-06-2024 take 1 tablet by mouth every week fluconazole (Diflucan) 150 MG tablet Indications: Vaginal yeast infection Take 1 tablet (150 mg) by mouth 1 (one) time per week for 14 days 2 tablet 06/22/2024 07/06/2024 Active FLUoxetine 10 mg oral capsule (20 sources) Serotonin Reuptake Inhibitor Start: 12-15-2023 take 1 capsule by mouth once daily in the morning FLUoxetine (PROzac) 10 MG capsule Indications: Mood changes TAKE 1 CAPSULE BY MOUTH EVERY DAY IN THE MORNING 90 capsule 3 12/15/2023 Active PROzac Active Ibuprofen (7 sources) Nonsteroidal Anti-inflammatory Drug Ibuprofen Active take 1 tablet by jacquie th three times daily as needed Ibuprofen 800 MG Oral Tablet TAKE 1 TABL ET 3 TIMES DAILY NEEDED. Quantity: 0 Refills: 0 Ordered: 27-Jan-2023 DO Active Ibuprofen 800 MG Oral Tablet Quantity: 0 Refills: 0 Ordered: 28-Jul-2021 DO Active meloxicam 7.5 mg oral tablet (19 sources) Nonsteroidal Anti-inflammatory Drug Start: 11-15-2023 End: 11-14-2024 take 1 tablet by mouth once daily meloxicam (Mobic) 7.5 MG tablet Indications: Intractable chronic migraine with aura with status migrainosus (CMS/HCC) Take 1 tablet (7.5 mg) by mouth Daily 30 tablet 11 11/15/2023 11/14/2024 Active Multiple Vitamins-Mineral s (MULTIVITAMIN WOMEN PO) (19 sources) Multiple Vitamins-Minerals (MULTIVITAMIN WOMEN PO) Active Naltrexone (3 sources) Opioid Antagonist Start: 08-30-2024 Naltrexone HCl powder Indications: CMV (cytomegalovirus) antibody positive 2 mg Daily 30 g 2 08/30/2024 Active Start: 04-26-2024 End: 05-26-2024 take 4 mg by mouth once daily Naltrexone HCl powder In dications: Radiculopathy of sacral region Take 4 mg by mouth Daily 30 g 04/26/2024 05/26/2024 Active Naltrexone HCl Anhydrous powder (6 sources) Start: 04-24-2024 End: 05-24-2024 Naltrexone HCl Anhydrous pow sharmila Indications: Radiculopathy of sacral region 4 mg combined Daily 30 g 11 04/24/2024 05/24/2024 Active Start: 03-24-2024 End: 04-23-2024 Naltrexone HCl Anhydrous pow sharmila Indications: Radiculopathy of sacral region 2 mg combined Daily 30 g 03/24/2024 04/23/2024 Discontinued (Reorder) Start: 03-24-2024 End: 04-23-2024 Naltrexone HCl Anhydrous pow sharmila Indications: Radiculopathy of sacral region 2 mg combined Daily 30 g 03/24/2024 04/23/2024 Active NALTREXONE HCL, PAIN, PO (8 sources) take 2 mg by mouth once daily NALTREXONE HCL, PAIN, PO Take 2 mg by mouth Daily Active OXcarbazepine 300 mg oral tablet (8 sources) Anti-epileptic Agent Start: End: take 1 tablet by mouth in the morning OXcarbazepine (Trileptal) 300 MG tablet Indications: Episodic migraine (CMS/HCC) Take 1 tablet (300 mg) by mouth in the morning and 1 tablet (300 mg) before bedtime. 60 tablet 06/28/2024 06/28/2025 Active pantoprazole 40 mg delayed release oral tablet (20 sources) Proton Pump Inhibitor Start: 4 take 1 tablet by mouth once daily pantoprazole (ProtoNix) 40 MG EC tablet Indications: Gastro-esophageal reflux disease without esophagitis TAKE 1 TABLET BY MOUTH EVERY DAY 100 tablet 3 03/16/2024 Active Protonix Active take 1 tablet by mouth once john y Protonix 20 MG Oral Tablet Delayed Release TAKE 1 TABLET DAILY. Quantity: 0 Refills: 0 Ordered: 27-Jan-2023 DO Active Protonix 20 MG O ral Tablet Delayed Release Quantity: 0 Refills: 0 Ordered: 28-Jul-2021 DO Active Probiotic Product (DIGESTIVE ADV DIGESTIVE/IMMUNE PO) (19 sources) Probiotic Produc t (DIGESTIVE ADV DIGESTIVE/IMMUNE PO) Active rimegepant 75 mg disintegrating oral tablet (19 sources) Start: 02-25-20 24 take 1 tablet by mouth every other day as needed Rimegepant Sulfate (Nurtec) 75 MG tablet dispersible Indications: Episodic migraine (CMS/HCC) Take 1 tablet by mouth every other day As needed for migraines. 8 tablet 5 02/25/2024 Active sucralfate 1000 mg oral tablet (20 sources) Aluminum Complex Start: 07-15-20 23 take 1 tablet by mouth four times daily sucralfate (Carafate) 1 g tablet Indications: Gastroesophageal reflux disease with esophagitis, unspecified whether hemorrhage TAKE 1 TABLET BY MOUTH 4 TIMES A DAY ON AN EMPTY STOMACH 120 tablet 5 07/15/2023 Active Carafate Active Carafate TABS TA KE 1 TABLET EVERY 12 HOURS DAILY. Quantity: 0 Refills: 0 Ordered: 27-Jan-2023 DO Active Carafate TABS Qu antity: 0 Refills: 0 Ordered: 28-Jul-2021 DO Active tiZANidine 2 mg oral tablet (20 sources) Central alpha-2 Adrenergic Agonist Start: 08-18-2024 take 1 tablet by mouth three times daily as needed for muscle spasms tiZANidine (Zanaflex) 2 MG tablet Indications: Degeneration of cervical intervertebral disc TAKE 1 TABLET BY MOUTH 3 TIMES A DAY NEEDED FOR MUSCLE SPASMS 90 tablet 2 08/18/2024 Active Start: 05-15-2024 take 1 tablet by jacquie three times daily as needed for muscle spasms tiZANidine (Zanaflex) 2 MG tablet Indications: Degeneration of cervical intervertebral disc TAKE 1 TABLET BY MOUTH 3 TIMES A DAY NEEDED FOR MUSCLE SPASMS 270 tablet 05/15/2024 Active Start: 01-26-2024 take 1 tablet by jacquie th three times daily as needed for muscle spasms tiZANidine (Zanaflex) 2 MG tablet Indications: Degeneration of cervical intervertebral disc TAKE 1 TABLET BY MOUTH 3 TIMES A DAY NEEDED FOR MUSCLE SPASMS 270 tablet 01/26/2024 Active Zanaflex Active take 1 tablet by jacquie th at bedtime Zanaflex TABS TAKE 1 TABLET AT BEDTIME. Quantity: 0 Refills: 0 Ordered: 27-Jan-2023 DO Active Zanaflex TABS Qu antity: 0 Refills: 0 Ordered: 28-Jul-2021 DO Active wheat dextrin 3000 mg powder for oral solution (19 sources) Wheat Dextrin (B enefiber) powder as directed Orally Active Completed/Discontinued Medications Medication Drug Class(es) Dates Sig (Normalized) Sig (Original) Atogepant (Qulipta) 30 MG tablet (9 sources) Start: 07-24-2024 End: 08-30-2024 take 1 tablet by mouth once daily Atogepant (Qulipta) 30 MG tablet Indications: Episodic migraine (CMS/HCC) Take 30 mg by mouth Daily 30 tablet 2 07/24/2024 08/30/2024 Discontinued (Dose adjustment) Start: 07-24-2024 End: 10-22-2024 take 1 tablet by mouth once daily Atogepant (Qulipta) 30 MG tablet Indications: Episodic migraine (CMS/HCC) Take 30 mg by mouth Daily 30 tablet 2 07/24/2024 10/22/2024 Active End: 07-24-2024 take 1 tablet by mouth once daily Atogepant (Qulipta) 30 MG tablet Take 30 mg by mouth Daily 07/24/2024 Discontinued (Reorder) take 1 tablet by jacquie th once daily Atogepant (Qulipta) 30 MG tablet Take 30 mg by mouth Daily Active Betamethasone Sodium Phosphate 6 MG/ML Injection Solution [...] 28-Jul-2021 Complete topiramate (2 sources) Topamax TABS Dav ntity: 0 Refills: 0 Ordered: 28-Jul-2021 DO Active Problems Active Problems Problem Classification Problem Date Documented Da te Episodic/Chronic Asthma (20 sources) Unspecified asthma, uncomplicated; Translations: [Asthma] Onset: 1 12-29-2022 Chronic Blindness and vision defects (6 sources) Disorder of vision; Translations: [Problems with sight] Chronic Delirium, dementia, and amnestic and other cognitive disorders (20 sources) Postconcussion syndrome; Translations: [Postconcussional syndrome] Onset: 3 12-29-2022 Chronic Diseases of white blood cells (19 sources) Leukocytosis; Translations: [Elevated white blood cell count, unspecified] Onset: 3 12-29-2022 Chronic Disorders of lipid metabolism (19 sources) Pure hypercholesterolemia; Translations: [Pure hypercholesterolemia, unspecified] Onset: 1 02-25-2024 Chronic Disorders usually diagnosed in infancy, childhood, or adolescence (20 sources) Attention deficit hyperactivity disorder, predominantly inattentive type; Translations: [Other specified behavioral and emotional disorders with onset usually occurring in childhood and adolescence] Onset: 4 03-31-2024 Chronic Esophageal disorders (20 sources) Gastroesophageal reflux disease; Translations: [Esophageal reflux] Onset: 3 12-29-2022 Chronic Headache; including migraine (20 sources) Migraine, unspecified, not intractable, without status migrainosus; Translations: [Migraine, unspecified, without mention of intractable migraine without mention of status migrainosus] Onset: 1 02-25-2024 Chronic Immunizations and screening for infectious disease (5 sources) Encounter for screening for human papillomavirus (HPV); Translations: [Positive measurement finding] Onset: 2 06-28-2024 Episodic Mycoses (2 sources) Candidiasis of vagina; Translations: [Vaginal yeast infection] 06-22-2024 Episodic Other and ill-defined heart disease (4 sources) Heart disease; Translations: [Other ill-defined heart diseases] Chronic Other and ill-defined heart disease (19 sources) Cardiomegaly; Translations: [Cardiomegaly] Onset: 3 12-29-2022 Chronic Other connective tissue disease (2 sources) [...] plexus disorders] Chronic Other nervous system disorders (19 sources) Carpal tunnel syndrome of right wrist; Translations: [Carpal tunnel syndrome, right upper limb] Onset: 4 09-27-2023 Chronic Other nervous system disorders (2 sources) Polyneuropathy; Translations: [Polyneuropathy, unspecified] 06-28-2024 Chronic Other nervous system disorders (6 sources) [...] sources) Obesity; Translations: [Obesity, unspecified] Chronic Other nutritional; endocrine; and metabolic disorders (19 sources) Body mass index 30+ - obesity; Translations: [Body mass index (BMI) 38.0-38.9, adult] Onset: 4 02-25-2024 Chronic Other nutritional; endocrine; and metabolic disorders (19 sources) Obesity caused by energy imbalance; Translations: [Morbid (severe) obesity due to excess calories] Onset: 4 02-25-2024 Chronic Other screening for suspected conditions (not mental disorders or infectious disease) (17 sources) Other abnormal and inconclusive findings on diagnostic imaging of breast; Translations: [Encounter for screening mammogram for malignant neoplasm of breast] Onset: 2 Episodic Other upper respiratory infections (4 sources) Sore throat symptom; Translations: [Acute pharyngitis, unspecified] 06-22-2024 Episodic Screening and history of mental health and substance abuse codes (4 sources) Ex-smoker; Translations: [Personal history of tobacco use] Episodic Spondylosis; intervertebral disc disorders; other back problems (20 sources) Disorder of lumbar disc; Translations: [Bulging lumbar disc] Onset: 2 12-29-2022 Chronic Substance-related disorders (20 sources) Nicotine dependence, unspecified, uncomplicated; Translations: [Nicotine dependence] Onset: 2 12-29-2022 Chronic Systemic lupus erythematosus and connective tissue disorders (1 source) Sicca syndrome, unspecified; Translations: [Sjogren syndrome, unspecified] Onset: 5 Chronic Unclassified (1 source) Unknown / UNK(Unknown) Onset: 7 Past or Other Problems Problem Classification Problem Date Documented Date Episodic/Chronic Biliary tract disease (19 sources) Postcholecystectomy syndrome; Translations: [Postcholecystectomy syndrome] Onset: 3 12-29-2022 Episodic Blindness and vision defects (19 sources) Blurring of visual image; Translations: [Other visual disturbances] Onset: 4 02-25-2024 Episodic Cardiac dysrhythmias (19 sources) Tachycardia; Translations: [Tachycardia, unspecified] Onset: 3 12-30-2022 Episodic Chronic ulcer of skin (19 sources) Chronic ulcer of skin; Translations: [Non-pressure chronic ulcer of skin of other sites limited to breakdown of skin] Onset: 3 Resolved: 4 02-25-2024 Chronic Conditions associated with dizziness or vertigo (19 sources) Dizziness; Translations: [Dizziness and giddiness] Onset: 4 10-07-2023 Episodic Diabetes mellitus without complication (19 sources) Impaired fasting glycemia; Translations: [Impaired fasting glucose] Onset: 4 02-28-2024 Episodic Joint disorders and dislocations; trauma-related (19 sources) Dislocation of temporomandibular joint; Translations: [Dislocation of jaw, unspecified side, initial encounter] Onset: 3 12-29-2022 Episodic Malaise and fatigue (20 sources) Asthenia; Translations: [Weakness] Onset: 4 09-08-2023 Episodic Nonspecific chest pain (20 sources) Chest pain; Translations: [Chest pain, unspecified] Onset: 3 12-30-2022 Episodic Other connective tissue disease (19 sources) Pain in right arm; Translations: [Pain in right arm] Onset: 4 09-08-2023 Episodic Other nervous system disorders (20 sources) Skin sensation disturbance; Translations: [Unspecified disturbances of skin sensation] Onset: 2 05-03-2023 Episodic Other upper respiratory infections (20 sources) Chronic sinusitis, unspecified; Translations: [Sinusitis] Onset: 2 Resolved: 3 Chronic Residual codes; unclassified (1 source) Family history of malignant neoplasm of other genital organs; Translations: [FAM HX MALIG NEOPLSM OTH GENIT ORGN] Onset: 2 Episodic Residual codes; unclassified (1 source) Family history of malignant neoplasm of kidney; Translations: [FAM HX MALIGNANT NEOPLASM KIDNEY] Onset: 2 Episodic Residual codes; unclassified (1 source) Family history of malignant neoplasm of other organs or systems; Translations: [FAM HX MALIG NEOPLASM OT ORGN/SYS] Onset: 2 Episodic Residual codes; unclassified (19 sources) Family history of cardiac disorder; Translations: [Family history of ischemic heart disease and other diseases of the circulatory system] Onset: 3 12-30-2022 Episodic Residual codes; unclassified (20 sources) Amnesia; Translations: [Other amnesia] Onset: 4 09-08-2023 Episodic Spondylosis; intervertebral disc disorders; other back problems (20 sources) Nerve root disorder; Translations: [Radiculopathy, sacral and sacrococcygeal region] Onset: 4 04-23-2024 Episodic Syncope (20 sources) Vasovagal syncope; Translations: [Syncope and collapse] Onset: 2 Resolved: 4 12-29-2022 Episodic Unclassified (1 source) [facility] [address] H50.05 Onset: 7 Unclassified (4 sources) Positive measurement finding 06-28-2024 Unclassified (1 source) Episodic migraine (CMS/HCC) 07-24-2024 Results Test Name Value Interpretation Reference Range Facility C reactive protein [Mass/vol ume] in Serum or PlasmaOrdered By: Jorge Walden on 08-16-2024 CRP [Mass/Vol] C reactive protein [Mass/volume] in Serum or Plasma 0.0-0.5 [facility] C-Reactive Proteinon 025 CRP [Mass/Vol] mg/L Normal 0.0-0.5 [facility] Comment on above: Result Comment: PERF ORMED BY: [place] [address] PATHOLOGIST RISK AND INSURANCE CONSULTANT BILL KELLY M.D. Performed By: #### S SA, SSB #### [facility] , #### CRP, ESR #### [address] Erythrocyte Sedimentation Ra alberto 08-16-2024 ESR (Bld) [Velocity] 1 mm/h Normal 0-19 [facility] Comment on above: Result Comment: PERF ORMED BY: [place] [address] PATHOLOGIST RISK AND INSURANCE CONSULTANT BILL KELLY M.D. Performed By: #### S SA, SSB #### [facility] , #### CRP, ESR #### [address] Erythrocyte sedimentation ra te by Photometric methodOrdered By: Jorge Walden on 08-16-2024 ESR Photometric method (Bld) [Velocity] Erythrocyte sedimentation rate by Photometric method 0-19 [facility] SS-A/Ro Sjogrens Antibodyon 08-16-2024 SS-A/Ro Sjogrens Antibody <0.2 Normal 0.0-0.9 [facility] Comment on above: Performed By: #### S SA, SSB #### [facility] , #### CRP, ESR #### [facility] [address] SS-B/La Sjogrens Antibodyon 08-16-2024 SS-B/La Sjogrens Antibody <0.2 Normal 0.0-0.9 [facility] Comment on above: Result Comment: Perf ormed at: [address] [id number] Printer'S Assistant: Adonis Glass PhD, Phone: [phone] PERFORMED BY: [place] [address] PATHOLOGIST RISK AND INSURANCE CONSULTANT BILL KELLY M.D. Performed By: #### S SA, SSB #### [facility] , #### CRP, ESR #### [address] RF [place] 07-11-2024 Rheumatoid factor Qn [IU]/mL Invalid Interpretation Code <14.0 [facility] Comment on above: Result Comment: Perf ormed at: [address] [id number] PhD Maria Luisa Lamb Performed By: #### 1 [id number] #### [facility] [address] [place] [address] WRITTEN AUTHORIZATIONon 06-19 Written Authorization Comment Invalid Interpretation Code [facility] Comment on above: Result Comment: Writ ten Authorization Received. Authorization received from ORIGINAL ORDER 07-10-2024 Logged by Ivette Haines Performed at: [address] [phone] PhD Maria Luisa Lamb Performed By: #### 3 [id number] #### [facility] [address] [place] [address] BROOKE w/Reflex if POSon 2023 Nuclear Ab Ql (S) Negative Invalid Interpretation Code Negative [facility] Comment on above: Result Comment: Perf ormed at: [facility] [address] [id number] PhD Maria Luisa Lamb Performed By: #### 1 [id number] #### [facility] [address] [place] [address] EBV Antibody Profileon 07-07 EBV capsid IgG IA Qn (S) 247.0 unit/mL High 0.0-17.9 [facility] Comment on above: Result Comment: Nega tive <18.0 Equivocal 18.0 - 21.9 Positive >21.9 Performed By: #### 1 [id number] #### [facility] [address] [place] [address] 80193 EBV capsid IgM IA Qn (S) <36.0 Invalid Interpretation Code 0.0-35.9 [facility] Comment on above: Result Comment: Nega tive <36.0 Equivocal 36.0 - 43.9 Positive >43.9 Performed By: #### 1 [id number] #### [facility] [address] [place] [address]689 EBV nuclear IgG IA Qn (S) 207.0 unit/mL High 0.0-17.9 [facility] Comment on above: Result Comment: Nega tive <18.0 Equivocal 18.0 - 21.9 Positive >21.9 Performed By: #### 1 [id number] #### [facility] [address] [place] [address] Service comment (Unsp spec) [Interp] Comment Invalid Interpretation Code [facility] Comment on above: Result Comment: EBV Interpretation Chart Bosch: Antibody Present + Antibody Absent - Interpretation VCA-IgM VCA-IgG EBNA-IgG No previous infection/ - - - Susceptible Primary infection (new + + - or recent) Past Infection +or- + + See comment below* + - - *Results indicate infection with EBV at some time however cannot predict the timing of the infection since antibodies to EBNA usually develop after primary infection or, alternatively, approximately 5-10% of patients with EBV never develop antibodies to EBNA. Performed at: [facility] [address] [place] [address] [phone] [id number] PhD Maria Luisa Lamb Performed By: #### 1 [id number] #### [facility] [address] [place] [address] EBV Early Abon 07-07-2024 EBV early diffuse IgG Qn (S) 71.0 unit/mL High 0.0-8.9 [facility] Comment on above: Result Comment: Hepa titis A, Hepatitis C and HIV antibodies may cross-react with this assay. Negative < 9.0 Equivocal 9.0 - 10.9 Positive >10.9 Performed at: [address] [id number] PhD Maria Luisa Lamb Performed By: #### 1 [id number] #### [facility] [address] [place] [address] CRPon 07-06-2024 CRP [Mass/Vol] 0.4 mg/dL Normal <=1.9 [facility] Comment on above: Performed By: #### 2 [id number] #### [facility] [address] [place] [address] [facility] CRPon 07-06-2024 [facility] C REACTIVE PROTEIN:MCNC:PT:SE R/PLAS:QN: 0.4 mg/dL NINF - 1.9 mg/dL [facility] Original Ordering Pr ovider: KEN IRENE [facility] Sed Rate Automatedon 024 ESR (Bld) [Velocity] 9 mm/h Normal 0-34 [facility] Comment on above: Performed By: #### 1 [id number] #### [facility] [address] [place] [address] Laboratory - Microbiology an d Antimicrobial susceptibilityon 06-22-2024 S. pyogenes Ag Ql (Throat) Negative Negative, None Detected [facility] No Panel Informationon 06-22 [facility] Cardiac Stress Teston 2022 Cardiac Stress Test [address], [address], [place] [address] Exercise Stress Test Patient Name: HAYDER Ordering Physician: [id number] Stanislaw GUTIERRES Study Date: 2023 Reading Physician: [id number] Juan Menchaca MD, [facility] MRN/PID: [id number] Supervising [id number] Stanislaw Hammond DO Physician: Accession/Order#: [id number] Referring Physician: STANISLAW HAMMOND Date of : 1980 PCP: Shanon Penaloza Gender: F Fellow: Height: 152.40 cm Nurse: Kirstie Russ RN Weight: 88.45 kg Technical Implementation Lead: BREANNA BSA: 1.85 m2 Technologist: BMI: 38.08 kg/m2 Additional Staff: Age: 43 years cc report to: Patient Location: cc report to: [id number] Stanislaw Hammond Study Type: Cardiac Stress Test Diagnosis/ICD: R07.9-Chest pain, unspecified Indication: Chest Pain Procedure/CPT: Stress Test Interpretation-44094; Stress Test Supervision-[id number] Falls Risk: Low: Patient has low risk [...] normal sinus rhythm. Stress Stage Data: + +---+----- -+-------+ HR Sys BP Pablo BP + +---+----- -+-------+ Baseline Resting 96 116 78 + +---+----- -+-------+ Baseline Standing 96 114 76 + +---+----- -+-------+ Stage I 148 128 74 + +---+----- -+-------+ Stage II 168 138 72 + +---+----- -+-------+ Stage III 176 146 70 + +---+----- -+-------+ Recovery ECG: The heart rate recovery was normal. + +---+------+--- ----+ HR Sys BP Pablo BP + +---+------+--- ----+ Recovery I 179 146 70 + +---+------+--- ----+ Recovery II 162 142 68 + +---+------+--- ----+ Recovery III 129 128 76 + +---+------+--- ----+ Recovery IV 125 117 74 + +---+------+--- ----+ Recovery V 118 + +---+------+--- ----+ Summary: 1. 1_normal graded exercise tolerance test [...] favorable. 2. Adequate level of stress achieved. [id number] Juan Menchaca MD, FACC Electronically signed on 2023 at 4:04:27 PM Final Normal [facility] Cardiac Stress Test -[facility] [address] DO Work Phone: [...] Test; Status:Hold For - Scheduling,Retrospective Authorization; Requested for:[id number]; CRP, High Sensitivity; Status:Active - Retrospective Authorization; Requested for:[id number]; IO EKG Electrocardiogram- 12 Lead; Status:Complete; Done: [id number] Class 2 obesity with body mass index (BMI) of 38.0 to 38.9 in adult Healthy Weight Tips; Status:Complete - Retrospective Authorization; Done: [id number] Some eating tips that can help you lose weight.; Status:Complete - Retrospective Authorization; Done: 33Jxi1475 Lipid screening Lipid Panel; Status:Active - Retrospective Authorization; Requested for:[id number]; SocHx: Former smoker Tobacco Use Screening; Status:Complete; Done: 92Uny1734 SocHx: Vaping nicotine dependence, tobacco product You need to quit smoking.; Status:Complete - Retrospective Authorization; Done: 24Nzr9970 You need to stop smoking. Though it is not easy, more than half of all adult smokers have quit. We encourage you to write down all the reasons you should quit smoking and set a quit date for yourself. Ask us how we can help. You may also call 4-398-TKVANOW for free resources and assistance.; Status:Complete - Retrospective Authorization; Done: 67Mfw9257 Patient Instructions Please bring all medicines, vitamins, [...] lab Follow-up as needed only Chief Complaint HAYDER GUTIERRES is being seen for a consultation for intermittent chest pain. 42-year-old female seen in cardiology consultation at the request of Dr. Anderson for further evaluation in regards to chest discomfort. Approximately within the last 2 weeks he sustained 1 episode of severe anterior and retrosternal chest discomfort that was excruciating in nature, went to [place] [facility], ruled out for acute coronary syndrome and was discharged home. Details of the [facility] emergency room evaluation are unavailable. She apparently [...] (V15.82) (Z87.891) (more content not included)... Normal [facility] Tobacco Screening.on 023 Tobacco use status [facility] b) No -[facility] [place] [address] DO Work Phone: Tobacco Screening. Yes [facility] [place] [address] DO Work Phone: XR CHEST [...] IMPRESSION: 1. Normal chest. Electronically authenticated by: EM REMY Date: 2022-03-06 08:35 Normal [facility] US BREAST RIGHT LIMITEDon US BREAST RIGHT LIMITED Patient: HAYDER GUTIERRES. Exam Date: 09/02/2021 : 1980 Gender:F Ordering : DR CATRACHO LEWIS . Admission #: [id number] Family : Order #: [id number] CLICK HERE TO VIEW EXAM RADIOLOGY REPORT [...] Murillo MD on 09/02/2021 at 13:51 Normal [facility] MG MAMM SCREEN 3D ELDER CADon 08-26-2021 MG MAMM SCREEN 3D ELDER CAD Patient: HAYDER GUTIERRES. Exam Date: 08/26/2021 : 1980 Gender:F Ordering : DR CATRACHO LEWIS . Admission #: [id number] Family : Order #: [id number] CLICK HERE TO VIEW EXAM RADIOLOGY REPORT [...] kidney cancer at age 68. LOCATION: [facility] BREAST COMPOSITION: Heterogeneously dense,which may obscure small [...] PALPABLE LUMP SHOULD BE BIOPSIED. Dictated by: Em Remy M.D. on 08/26/2021 at 13:57 Approved by: Em Remy M.D. on 08/26/2021 at 14:01 Normal [facility] PAP ACOG PANEL 2: 30 to 65on 08-02-2021 . . Normal [facility] Comment on above: Result Comment: Perf ormed at: WB Performed By: #### 4 [id number] #### [facility] [address] [place] [address] [address] José Luis Gould Age Gdln ACOG Testing 30-65 Normal [facility] Comment on above: Performed By: #### 4 [id number] #### [facility] [address] [place] [address] [address] José Luis Gould DIAGNOSIS: Comment Normal [facility] Comment on above: Result Comment: NEGA TIVE FOR INTRAEPITHELIAL LESION OR MALIGNANCY. THIS SPECIMEN WAS RESCREENED PART OF OUR ENVIRONMENTAL STUDIES PROGRAM DIRECTOR PROGRAM. Performed at: WB Performed By: #### 4 [id number] #### [facility] [address] [place] [address] [address] José Luis Gould HPV Aptima Negative Normal Negative [facility] Comment on above: Result Comment: This nucleic acid amplification test detects fourteen high-risk HPV types (16,18,31,33,35,39,45,51,52,56,58,59,66,68) without differentiation. Performed at: =G Performed By: #### 4 [id number] #### [facility] [address] [place] [address] Dr. José Luis Gould Methodology: Comment Normal [facility] Comment on above: Result Comment: This liquid based ThinPrep(R) pap test was screened with the use of an image guided system. Performed at: WB Performed By: #### 4 [id number] #### [facility] [address] [place] [address] Dr. José Luis Gould Note: Comment Normal [facility] Comment on above: Result Comment: The Pap smear is a screening test designed to aid in the detection of premalignant and malignant conditions of the uterine cervix. It is not a diagnostic procedure and should not be used as the sole means of detecting cervical cancer. Both false-positive and false-negative reports do occur. . Performed at: WB Performed By: #### 4 [id number] #### [facility] [address] [place] [address] Dr. José Luis Gould Performed by: Comment Normal [facility] Comment on above: Result Comment: Elaine Crouch, Embosser Apprentice (ASCP) Performed at: WB Performed By: #### 4 [id number] #### [facility] [address] [place] [address] Dr. José Luis Gould QC reviewed by: Comment Normal [facility] Comment on above: Result Comment: Marlee Merino Embosser Apprentice (ASCP) Performed at: WB Performed By: #### 4 [id number] #### [facility] [address] [place], [place] [id number] Dr. José Luis Gould Specimen adequacy: Comment Normal [facility] Comment on above: Result Comment: Sati sfactory for evaluation. Endocervical and/or squamous metaplastic cells (endocervical component) are present. Performed at: WB Performed By: #### 4 [id number] #### [facility] [address] [place] [address] Dr. José Luis Gould Radiologyon 07-28-2021 XR Shoulder 2 Views Normal [facility] Work Phone: History and Physical Chris 1 History and Physical PAT MTDD Normal [facility] OPERATIVE REPORTon OPERATIVE REPORT Name: HOLLY GUTIERRES EMR: [id number]: Cade Bae M.D.DATE OF SURGERY:ADDENDUM: The previous note I had dictated for Hayder Gutierres, medical record#[id number], job number was [id number], was dictated an error. Please dictate thatnote. A new dictation note will be dictated shortly. KRISTOPHER Mercado/Isaura/[id number]: 05/11/2017 21:03:28 E/S: Cade Bae MD08/06/17 1426Signature on File [facility] HAYDER [id number] [address] [place] [id number]: Cade Bae MDOPERATIVE REPORT [facility] OPERATIVE REPORT Name: HOLLY GUTIERRES EMR: [id number]: Cade Bae M.D.DATE OF SURGERY: 05/11/2017PREOP DIAGNOSIS: Senile nuclear sclerotic cataract, right eye.POSTOP DIAGNOSIS: Senile nuclear sclerotic cataract, right eye.OPERATION: Cataract extraction with intraocular lens implants.ANESTHESIA: General anesthesia.1ST FINANCIAL ASSISTANT:COMPLICATIONS: None.BLOOD LOSS: None.OPERATIVE REPORT: The patient was [...] constructed temporally.Dilation was poor, so an iris bilingual instructor was used to open the pupil wider.Cystotome [...] Lc AcrySof IQ SN60WF 22.0 diopters.The iris bilingual instructor ring was removed. Viscoelastic was removed with irrigationaspiration. A 9-0 Vicryl suture placed in the clear corneal wound. Anteriorchamber was reformed with BSS on a cannula. Intra-ocular Vigamox solution wasinstilled into the anterior chamber. Lid speculum removed. Area cleaned and [facility] NENITA,[id number] [address] [place] [id number]: Cade Bae MDOPERATIVE REPORTantibiotic anti-inflammatory drops placed in the eye. The patient toleratedthe procedure well without complications and sent to the recovery room withoutincident. Follow up 1 day with . .POSTOP MEDICATIONS: Antibiotic, steroid, and NSAID ophthalmic combinationdrop. Norbert BAE M.D./[facility]/[id number]: 05/11/2017 20:26:44 E/S: Cade Bae MD08/06/17 1426Signature on File [facility] HAYDER [id number] [address] [place] [address] [id number]: Cade Bae MDOPERATIVE REPORT Normal [facility] OPERATIVE REPORT Name: HOLLY GUTIERRES EMR: [id number]: Cade Bae M.D.DATE OF SURGERY: 05/11/2017(Please note that this is the correct dictation for her, whereas the previousone was incorrect).PREOP DIAGNOSIS: Alternating esotropia.POSTOP DIAGNOSIS: Alternating esotropia.PROCEDURE: Bilateral medial rectus recession, 3.5 mm.ANESTHESIA: General anesthesia.1ST FINANCIAL ASSISTANT:COMPLICATIONS: No complications.ESTIMATED BLOOD LOSS: Less than 1 [...] in good condition. Followup in 1 week. [id number] [address] [place] [address] [id number]: Cade Bae MDOPERATIVE REPORTPOSTOP MEDICATIONS: Antibiotic steroid ointment at night for 1 week. KRISTOPHER Mercado/Isaura/[id number]: 05/11/2017 21:49:29 E/S: Cade Bae MD/ 1426Signature on File [id number] [address] [place] [id number]: Cade Bae MDOPERATIVE REPORT Normal [facility] PREG URINE QUALon 05-11-2017 UR HCG QUAL Negative Normal [facility] Comment on above: Order Comment: [facility] Performed By: #### L UPREG ####[facility] [id number] [place] [id number] Vital Signs Date Time Vital Sign Value Performing Clinician Facility 08-30-2024 13:04-0500 Body height 152.4 cm Sarabjit Dylonnagel CASINO ENFORCEMENT AGENT Work Phone: [facility] 08-30-2024 13:04-0500 Body mass index (BMI) [Ratio] 38.51 kg/m2 Sarabjit Windnagel CASINO ENFORCEMENT AGENT Work Phone: [facility] 08-30-2024 13:04-0500 Body weight 89.45 kg Sarabjit Windnagel CASINO ENFORCEMENT AGENT Work Phone: [facility] 08-30-2024 13:04-0500 Diastolic blood pressure 80 mm[Hg] Sarabjit Windnagel CASINO ENFORCEMENT AGENT Work Phone: [facility] 08-30-2024 13:04-0500 Systolic blood pressure 142 mm[Hg] Sarabjit Windnagel CASINO ENFORCEMENT AGENT Work Phone: [facility] 06-28-2024 12:32-0500 Body height 152.4 cm Sarabjit Windnagel CASINO ENFORCEMENT AGENT Work Phone: [facility] 06-28-2024 12:32-0500 Body mass index (BMI) [Ratio] 37.58 kg/m2 Sarabjit Windnagel CASINO ENFORCEMENT AGENT Work Phone: [facility] 06-28-2024 12:32-0500 Body weight 87.27 kg Sarabjit Windnagel CASINO ENFORCEMENT AGENT Work Phone: [facility] 06-28-2024 12:32-0500 Diastolic blood pressure 80 mm[Hg] Sarabjit Windnagel CASINO ENFORCEMENT AGENT Work Phone: [facility] 06-28-2024 12:32-0500 Systolic blood pressure 150 mm[Hg] Sarabjit Windnagel CASINO ENFORCEMENT AGENT Work Phone: [facility] 06-22-2024 15:34-0500 Body height 152.4 cm Anamaria Metcalf CASINO ENFORCEMENT AGENT Work Phone: [facility] 06-22-2024 15:34-0500 Body mass index (BMI) [Ratio] 37.6 kg/m2 Anamaria Metcalf CASINO ENFORCEMENT AGENT Work Phone: [facility] 06-22-2024 15:34-0500 Body temperature 98.71 [degF] Anamaria Metcalf CASINO ENFORCEMENT AGENT Work Phone: [facility] 06-22-2024 15:34-0500 Body weight 87.32 kg Anamaria Metcalf CASINO ENFORCEMENT AGENT Work Phone: [facility] 06-22-2024 15:34-0500 Diastolic blood pressure 86 mm[Hg] Anamaria Metcalf CASINO ENFORCEMENT AGENT Work Phone: [facility] 06-22-2024 15:34-0500 Heart rate 94 /min Anamaria Metcalf CASINO ENFORCEMENT AGENT Work Phone: [facility] 06-22-2024 15:34-0500 Respiratory rate 18 /min Anamaria Metcalf CASINO ENFORCEMENT AGENT Work Phone: [facility] 06-22-2024 15:34-0500 SaO2% (BldA) [Mass fraction] 99 % Anamaria Metcalf CASINO ENFORCEMENT AGENT Work Phone: [facility] 06-22-2024 15:34-0500 Systolic blood pressure 138 mm[Hg] Anamaria Metcalf CASINO ENFORCEMENT AGENT Work Phone: [facility] 03-31-2024 11:30-0400 Body height 152.4 cm Austen Romero MD Work Phone: [facility] 03-31-2024 11:30-0400 Body mass index (BMI) [Ratio] 37.69 kg/m2 Austen Romero MD Work Phone: [facility] 03-31-2024 11:30-0400 Body weight 87.54 kg Austen Romero MD Work Phone: [facility] 02-02-2023 00:00-0400 230 1 Rugen M [place] Work Phone: [facility] 250 DO Work Phone: Comment on above: FSLDL 01-27-2023 08:50-0400 Diastolic blood pressure 86 mm[Hg] Rugen M Ca Work Phone: [facility] 250 DO Work Phone: 01-27-2023 08:50-0400 Systolic blood pressure 108 mm[Hg] Rugen M [place] Work Phone: [facility] 250 DO Work Phone: 01-27-2023 08:49-0400 Diastolic blood pressure 78 mm[Hg] Rugen M [place] Work Phone: [facility] 250 DO Work Phone: 01-27-2023 08:49-0400 Systolic blood pressure 112 mm[Hg] Rugen M [place] Work Phone: [facility] [address] DO Work Phone: 01-27-2023 08:48-0400 Body height 152.4 cm Rugen M Ca Work Phone: [facility] 250 DO Work Phone: 01-27-2023 08:48-0400 Body mass index (BMI) [Ratio] 38.08 kg/m2 Rugen M Ca Work Phone: [facility] 250 DO Work Phone: 01-27-2023 08:48-0400 Body surface area Derived from formula 1.85 m2 Rugen M [place] Work Phone: [facility] 250 DO Work Phone: 01-27-2023 08:48-0400 Body weight 88.45 kg Rugen M Ca Work Phone: [facility] 250 DO Work Phone: 01-27-2023 08:48-0400 Heart rate 95 /min Shanon Stein [place] Work Phone: [facility] [address] DO Work Phone: 07-28-2021 14:28-0500 Body height 152.4 cm Shanon Stein [place] [facility] Phone: [facility] Work Phone: 07-28-2021 14:28-0500 Body mass index (BMI) [Ratio] 35.15 kg/m2 Shanon Stein Ca Work Phone: [facility] Work Phone: 07-28-2021 14:28-0500 Body surface area Derived from formula 1.78 m2 Shanon Stein [place] Work Phone: [facility] Work Phone: 07-28-2021 14:28-0500 Body weight 81.65 kg Shanon Stein Ca Work Phone: [facility] Work Phone: Encounters Encounter Date Encounter Type Care Provider Facility Start: 08-30-2024 End: 08-30-2024 Bamboo flowsheet Sarabjit Irene CASINO ENFORCEMENT AGENT Work Phone: [facility] Start: 08-30-2024 End: 08-30-2024 Bamboo flowsheet Sarabjit Irene CASINO ENFORCEMENT AGENT Work Phone: [facility] Start: 08-30-2024 End: 08-30-2024 Office outpatient visit 25 minutes Sarabjit Irene CASINO ENFORCEMENT AGENT Work Phone: [facility] Comment on above: CMV (cytomegalovirus ) antibody positive (Primary Dx); Migraine without aura and without status migrainosus, not intractable (CMS/HCC); ADD (attention deficit disorder) without hyperactivity Start: 08-26-2024 End: 08-28-2024 Refill Sarabjit C Dylonnagel CASINO ENFORCEMENT AGENT Work Phone: [facility] Comment on above: Postconcussion syndr ome; ADD (attention deficit disorder) without hyperactivity Start: 08-16-2024 End: 08-16-2024 Patient encounter procedure Moiz Schneider DO Work Phone: [facility] [address] Work Phone: Start: 08-16-2024 End: 08-16-2024 ambulatory Moiz Schneider DO Work Phone: [facility] Work Phone: Start: 07-24-2024 End: 07-24-2024 Refill Sarabjit C Dylonnagel CASINO ENFORCEMENT AGENT Work Phone: [facility] Comment on above: Episodic migraine (C MS/HCC) (Primary Dx); Postconcussion syndrome; ADD (attention deficit disorder) without hyperactivity Start: 07-06-2024 End: 07-06-2024 Clinisync Result Encounter Sarabjit Jerald Irene CASINO ENFORCEMENT AGENT Work Phone: [facility] Unsolicited Start: 07-06-2024 End: 07-06-2024 Clinisync Result Encounter Sarabjit Jerald Matosgel CASINO ENFORCEMENT AGENT Work Phone: [facility] Unsolicited Start: 07-06-2024 End: 07-06-2024 ambulatory Austen Romero Facility:[facility] Start: 06-28-2024 End: 06-28-2024 Bamboo flowsheet Sarabjit C Windnagel CASINO ENFORCEMENT AGENT Work Phone: [facility] Start: 06-28-2024 End: 06-28-2024 Bamboo flowsheet Sarabjit C Windnagel CASINO ENFORCEMENT AGENT Work Phone: [facility] Start: 06-28-2024 End: 06-28-2024 Office outpatient visit 25 minutes Sarabjit Jerald Matosgel CASINO ENFORCEMENT AGENT Work Phone: [facility] Comment on above: Polyneuropathy (Prim cassidy Dx); Memory loss; Weakness; Disturbance of skin sensation; CMV (cytomegalovirus) antibody positive; Episodic migraine (CMS/HCC) Start: 06-28-2024 End: 06-28-2024 ambulatory SARABJIT IRENE Not Available Start: 06-22-2024 End: 06-22-2024 ambulatory ANAMARIA METCALF Not Available Start: 06-22-2024 End: 06-22-2024 Office outpatient visit 25 minutes Anamaria Metcalf [employer] Work Phone: [facility] Comment on above: Acute non-recurrent frontal sinusitis (Primary Dx); Sore throat; Vaginal yeast infection; Radiculopathy of sacral region Start: 06-22-2024 End: 06-22-2024 Bamboo flowsheet Anamaria Metcalf [employer] Work Phone: [facility] Start: 06-22-2024 End: 06-22-2024 Bamboo flowsheet Anamaria Metcalf [employer] Work Phone: [facility] Start: 06-08-2024 End: 06-08-2024 Refill Mariela Ron [employer] Work Phone: [facility] Comment on above: Postconcussion syndr ome; ADD (attention deficit disorder) without hyperactivity Start: 05-07-2024 End: 05-09-2024 Refill Mariela Ron [employer] Work Phone: [facility] Comment on above: Postconcussion syndr ome; ADD (attention deficit disorder) without hyperactivity Start: 04-23-2024 End: 04-24-2024 Refill Austen Romero MD Work Phone: [facility] Comment on above: Radiculopathy of sac ral region Start: 04-05-2024 End: 04-05-2024 Refill Mariela Ron [employer] Work Phone: [facility] Comment on above: Postconcussion syndr ome; ADD (attention deficit disorder) without hyperactivity Start: 03-31-2024 End: 03-31-2024 Bamboo flowsheet Austen Romero MD Work Phone: [facility] Start: 03-31-2024 End: 03-31-2024 Bamboo flowsheet Austen Romero MD Work Phone: [facility] Start: 03-31-2024 End: 03-31-2024 ambulatory AUSTEN W RMOERO Not Available Start: 03-31-2024 End: 03-31-2024 Office outpatient visit 25 minutes Austen Romero MD Work Phone: [facility] Comment on above: ADD (attention defic it disorder) without hyperactivity; Radiculopathy of sacral region Start: 02-25-2024 End: 02-25-2024 ambulatory HUANG M HEMMER Not Available Start: 02-22-2024 End: 02-22-2024 ambulatory CATRACHO MINDY Not Available Start: 12-29-2023 End: 12-29-2023 ambulatory AUSTEN W ROMERO Not Available Start: 12-14-2023 End: 12-14-2023 ambulatory HUANG M HEMMER Not Available Start: 11-01-2023 End: 11-01-2023 ambulatory AUSTEN W ROMERO Not Available Start: 10-06-2023 End: 10-06-2023 ambulatory HUANG HEMMER Not Available Start: 09-27-2023 End: 09-27-2023 ambulatory AUSTEN W ROMERO Not Available Start: 09-20-2023 End: 09-20-2023 ambulatory AUSTEN W ROMERO Not Available Start: 09-08-2023 End: 09-08-2023 ambulatory AUSTEN W ROMERO Not Available Start: 07-23-2023 End: 07-23-2023 ambulatory HUANG M HEMMER Not Available Start: 07-06-2023 End: 07-06-2023 ambulatory HUANG M HEMMER Not Available Start: 06-07-2023 End: 06-07-2023 ambulatory Roberto Carlos Layne Other [employer] Other Start: 06-07-2023 Office outpatient ne w 45 minutes Roberto Carlos Layne [facility] Start: 02-25-2023 Chart Update Shanon Penaloza Work Phone: [facility]Essie 250 DO Work Phone: Start: 2023 Patient encounter procedure Shanon Penaloza Work Phone: [facility] 600 DO Work Phone: Start: [address] Stanislaw Hammond Facility:[id number] Start: 01-27-2023 Office consultation new/estab patient 60 min Shanon Penaloza Work Phone: [facility] 250 DO Work Phone: Start: 01-27-[address] Stanislaw Hammond Facility:[id number] Start: 03-05-2022 End: 03-06-[address] SHANON PENALOZA Facility:H1 Start: 09-02-2021 End: 09-03-[address] CATRACHO LEWIS Facility:H1 Start: 08-26-2021 End: 08-27-[address] CATRACHO LEWIS Facility:H1 Start: 07-30-2021 End: 07-30-[address] CATRACHO LEWIS Facility:H1 Start: 07-28-2021 Patient encounter procedure Shanon Penaloza Work Phone: [facility] Work Phone: Start: 05-11-2017 Ambulatory Cade Bae Facility: [facility] Procedures Date Procedure Procedure Detail Performing Clinician Start: 07-06-2024 [facility] CRP Sarabjit C Tevin [employer] Work Phone: Start: 06-22-2024 [facility] streptococcus [facility] a Anamaria Metcalf [employer] Work Phone: Start: 02-15-2024 Mammography Austen Romero MD Work Phone: Start: 02-17-2023 Microscopic observation [Identifier] in Cervix by Cyto stain Austen Romero MD Work Phone: Arthroscopy of shoulder Yuriy n Sarita Penaloza Work Phone: section Shanon funes Work Phone: Dilation and curettage Shanon Penaloza Work Phone: Esophagogastroduodenoscopy R ugyoselyn Penaloza Work Phone: Operation on gallbladder Ruby Penaloza Work Phone: Surgical procedure on eye proper Shanon Penaloza Work Phone: Plan of Treatment Date Care Activity Detail Author Start: 02-27-2028 Screening for malign ant neoplasm of cervix [facility] Start: 02-17-2026 Screening for malign ant neoplasm of cervix Pap Smear [facility] Start: 02-28-2025 End: 02-28-2025 Patient encounter procedure 02/28/2025 2:00 PM EDT Office Visit [facility] [address] [place] [address] Catracho Lewis [address] [place] [address] [facility] Start: 02-14-2025 Screening for malign ant neoplasm of breast Mammogram [facility] Start: 11-08-2024 End: 11-08-2024 Patient encounter procedure 11/08/2024 10:20 AM EDT Office Visit [facility] [address] [facility] [address] [place] [address] Sarabjit Irene, [employer] [address], [facility] [address] [place] [address] [facility] Start: 08-30-2024 End: 08-30-2024 Patient encounter procedure [facility] Comment on above: Arrived Start: 06-29-2024 End: 06-28-2025 Rheumatoid factor [Units/volume] in Serum or Plasma Rheumatoid factor Lab Routine Polyneuropathy Weakness Disturbance of skin sensation CMV (cytomegalovirus) antibody positive Expected: 06/29/2024 (Approximate), Expires: 06/28/2025 [facility] Work Phone: Comment on above: Expected: 06/29/2024 (Approximate), Expires: 06/28/2025 Start: 06-28-2024 End: 06-28-2025 C reactive protein [Mass/volume] in Serum or Plasma C-reactive protein Lab Routine Weakness Disturbance of skin sensation CMV (cytomegalovirus) antibody positive Expected: 06/28/2024 (Approximate), Expires: 06/28/2025 [facility] Comment on above: Expected: 06/28/2024 (Approximate), Expires: 06/28/2025 Start: 06-28-2024 End: 06-28-2025 Erythrocyte sedimentation rate Sedimentation rate, automated Lab Routine Memory loss Weakness Disturbance of skin sensation CMV (cytomegalovirus) antibody positive Expected: 06/28/2024 (Approximate), Expires: 06/28/2025 [facility] Comment on above: Expected: 06/28/2024 (Approximate), Expires: 06/28/2025 Start: 06-28-2024 End: 06-28-2024 Patient encounter procedure [facility] Comment on above: Arrived Start: 06-28-2024 End: 06-28-2024 Patient encounter procedure 06/28/2024 10:20 AM EST Office Visit [facility] [address] [address] Austen Romero MD [address] [facility] [address] [address] [facility] Start: 03-19-2024 Influenza vaccination Influenza Vacc ine (#1) [facility] Start: 2023 STRESS MARY, Provider : ESSIE RUBIOI NUCLEAR ,[id number], Status: Pen, Time: 11:30 AM STRESS MARY, Provider: ESSIE RUBIOI NUCLEAR ,[id number], Status: Pen, Time: 11:30 AM -[facility]Essie 250 DO Work Phone: Start: 09-03-2021 FUV, Provider: Cade Ramos, Status: Pen, Time: 1:00 PM FUV, Provider: Cade Ramos, Status: Pen, Time: 1:00 PM -[facility] Work Phone: Sjogrens syndrome-A extractable nuclear Ab [Units/volume] in Serum [facility] Sjogrens syndrome-B extractable nuclear Ab [Units/volume] in Serum [facility] Immunizations Immunization Date Immunization Notes Care Provider Fa [facility] 06-29-2017 tetanus toxoid, redu odilon diphtheria toxoid, and acellular pertussis vaccine, adsorbed Rugen M [place] Work Phone: [facility] 06-04-2017 influenza, injectabl e, quadrivalent, preservative free Rugen M [place] Work Phone: [facility] 250 DO Work Phone: 06-04-2017 influenza virus vaccine, unspecified formulation Austen Romero MD Work Phone: [facility] Payers Date Payer Category Payer Self-pay 2019 Private Health Insurance [id number] 2019 Unknown 1980 Unknown [id number] [id number] 1980 Unknown [id number] 2.840.1.453958.3.579.2.593 1980 Unknown [id number] 2.16.840.1.914288.3.579.2.593 1980 Unknown [id number] 2.16.840.1.508340.3.579.2.593 1980 Unknown [id number] 2.16.840.1.373552.3.579.2.356 1980 Unknown [id number] 2.16.840.1.565872.3.579.2.106 8 1980 Unknown [id number] 2.16.840.1.978118.3.579.2.125 9 1980 Unknown [id number] 2.16.840.1.502283.3.579.2.125 1980 Unknown [id number] 2.16.840.1.252386.3.579.2.125 1980 Unknown [id number] 2.16.840.1.733913.3.579.2.125 1980 Unknown [id number] 2.16.840.1.607846.3.579.2.125 9 1980 Unknown [id number] 2.16.840.1.739368.3.579.2.125 1980 Unknown [id number] 2.16.840.1.257652.3.579.2.125 1980 Unknown [id number] 2.16840.1.928360.3.579.2.125 1980 Unknown [id number] 2.16.840.1.982886.3.579.2.125 9 1980 Unknown [id number] 2.16.840.1.223568.3.579.2.125 1980 Unknown [id number] 2.16.840.1.601682.3.579.2.125 1980 Unknown [id number] 2.16.840.1.837263.3.579.2.125 1980 Unknown [id number] 2.16.840.1.999345.3.579.2.125 1980 Unknown [id number] 2.16.840.1.426075.3.579.2.125 1980 Unknown [id number] 2.16.840.1.380848.3.579.2.125 9 1980 Unknown [id number] 2.16.840.1.370012.3.579.2.727 1980 Unknown [id number] 2.16.840.1.576170.3.579.2.727 1959 Unknown [id number] 1959 Unknown [id number] Medicaid [employer] Medicaid [id number] Unknown [id number] Unknown [id number] 2.16.840.1.154166.3.579.2.531 Social History Date Type Detail Facility Start: 02-22-2024 End: 03-31-2024 Current smoker Current smoker [facility] Work Phone: Start: 12-28-2022 End: 02-22-2024 Sex Assigned At [facility] [employer] Other Start: 06-01-2023 Tobacco smoking stat [facility] Smokes tobacco daily [facility] History of tobacco use Cigarette Smoker [facility] Start: 06-01-2023 Tobacco use and exposure User of smokeless tobacco [facility] Start: 03-31-2024 End: 06-22-2024 Alcoholic beverage intake Current drinker of alcohol (finding) [facility] How often do you nee d to have someone help you when you read instructions, pamphlets, or other written material from your doctor or pharmacy [SILS] Never [facility] Within the last year , have you been afraid of your partner or ex-partner? No [facility] Are you now , , , , never or living with a partner? [facility] How often to you hav e a drink containing alcohol? 2-3 time sa week [facility] How many standard drinks containing alcohol do you have on a typical day? 3 or 4 [facility] How often do you hav e 6 or more drinks on 1 occasion? Never [facility] How hard is it for y ou to pay for the very basics like food, housing, medical care, and heating Not very hard [facility] Do you feel stress - tense, restless, nervous, or anxious, or unable to sleep at night because your mind is troubled all the time - these days [OSQ] Only a little [facility] (I/We) worried wheth er (my/our) food would run out before (I/we) got money to buy more. Never true [facility] Start: 01-06-2023 Alcohol Comment Caffeine intak e: coffee, soda [facility] Start: 1980 Sex assigned at Not on file [facility] Tobacco smoking stat [facility] Unknown if ever smoked [facility] Work Phone: Start: 08-17-2024 Sex Female (finding) [facility] Start: 1980 Sex Assigned At Female F [facility] Clinical Notes 12-28-2020 to 07-24-2024 Telephone Encounter - Sarabjit Irene NP - 07/24/2024 12:43 PM ESTTelephone Encounter - Sarabjit Irene NP - 07/24/2024 12:43 PM Sachin Metcalf NP - 06/22/2024 3:30 PM EST Note Date & Type Note Facility 07-24-2024 Telephone encounter Note Form atting of this note might be different from the original. Scripts sent [facility] 07-24-2024 Miscellaneous Notes Formattin g of this note might be different from the original. Scripts sent documented in this encounter [facility] 06-22-2024 History of Presen t illness Narrative Images from the original note were not included. Subjective Patient ID: Hayder Gutierres is a 44 y.o. female who presents for a sore throat Hayder presents today with a sore throat. She has tried OTC medication with none helping. Back Pain This is a new problem. The current episode started in the past 7 days. The problem occurs constantly. The problem is unchanged. The pain is present in the lumbar spine and sacro-iliac. The quality of the pain is described as burning (squeezing). The pain radiates to the left thigh. The pain is at a severity of 6/10. The pain is moderate. The pain is The same all the time. The symptoms are aggravated by bending, position, lying down and twisting. Associated symptoms include headaches. Treatments tried: massage, steorid, Mobic. The treatment provided mild relief. Neck Pain This is a new problem. The current episode started today. The problem has been unchanged. Associated symptoms include headaches. Treatments tried: steorids, meloxicam. The treatment provided no relief. Headache This is a new problem. The current episode started today. The problem has been gradually worsening. The pain is located in the Frontal and temporal region. The pain does not radiate. The pain quality is not similar to prior headaches. The quality of the pain is described as aching. The pain is at a severity of 8/10. The pain is severe. Associated symptoms include back pain and neck pain. Nothing aggravates the symptoms. She has tried nothing for the symptoms. The treatment provided no relief. Current Outpatient Medications on File Prior to Visit Medication Sig Dispense Refill albuterol HFA (ProAir HFA) 90 mcg/act inhaler Inhale 1 puff every 4 (four) hours if needed for wheezing or shortness of breath. atorvastatin (Lipitor) 40 MG tablet Take 1 tablet (40 mg) by mouth in the morning. 100 tablet 3 buPROPion SR (Wellbutrin SR) 150 MG 12 hr tablet TAKE 1 TABLET BY MOUTH TWICE A DAY 60 tablet 11 Cholecalciferol (Vitamin D) 125 MCG (5000 UT) capsule cinnamon 500 MG capsule Take 500 mg by mouth in the morning. Collagen-Vitamin C-Biotin (COLLAGEN 1500/C PO) Take 1 tablet by mouth 1 (one) time each day. dexAMETHasone (Decadron) 2 MG tablet 2mg 3 pills po X3 days,2 pills po daily X3 days , then 1 pill po daily X3 days then stop 9 days 18 pills 18 tablet 1 dexmethylphenidate XR (Focalin XR) 10 MG 24 hr capsule Take 1 capsule (10 mg) by mouth Daily Do not crush, chew, or split. 30 capsule 0 diphenhydrAMINE (BENADryl) 25 MG tablet Take 50 mg by mouth as needed at bedtime for allergies. FLUoxetine (PROzac) 10 MG capsule TAKE 1 CAPSULE BY MOUTH EVERY DAY IN THE MORNING 90 capsule 3 meloxicam (Mobic) 7.5 MG tablet Take 1 tablet (7.5 mg) by mouth Daily 30 tablet 11 Multiple Vitamins-Minerals (MULTIVITAMIN WOMEN PO) pantoprazole (ProtoNix) 40 MG EC tablet TAKE 1 TABLET BY MOUTH EVERY DAY 100 tablet 3 Probiotic Product (DIGESTIVE ADV DIGESTIVE/IMMUNE PO) Rimegepant Sulfate (Nurtec) 75 MG tablet dispersible Take 1 tablet by mouth every other day As needed for migraines. 8 tablet 5 sucralfate (Carafate) 1 g tablet TAKE 1 TABLET BY MOUTH 4 TIMES A DAY ON AN EMPTY STOMACH 120 tablet 5 tiZANidine (Zanaflex) 2 MG tablet TAKE 1 TABLET BY MOUTH 3 TIMES A DAY NEEDED FOR MUSCLE SPASMS 270 tablet 0 Wheat Dextrin (Benefiber) powder as directed Orally No current facility-administered medications on file prior to visit. I have reviewed and reconciled the history and medication list with the patient today. Allergies Allergen Reactions Codeine Unknown Hydrocodone Unknown Hydrocodone-Acetaminophen Hives Latex Unknown Penicillins Unknown Social History Tobacco Use Smoking status: Every Day Types: Cigarettes Smokeless tobacco: Current Vaping Use Vaping status: Every Day Substance Use Topics Alcohol use: Yes Alcohol/week: 2.0 standard drinks of alcohol Types: 2 Standard drinks or equivalent per week Comment: Caffeine intake: coffee, soda Drug use: Never Family History Problem Relation Name Age of Onset Diabetes Mother Hypertension Father Heart disease Father Hyperlipidemia Father Hearing loss Father Cancer Maternal Grandmother Cancer Maternal Grandfather Diabetes Paternal Grandmother Hypertension Paternal Grandmother Heart disease Paternal Grandmother Diabetes Paternal Grandfather Hypertension Paternal Grandfather Heart disease Paternal Grandfather Past Medical History: Diagnosis Date ADD (attention deficit disorder) Allergic Anemia Anxiety Asthma (CMS/HCC) Carpal tunnel syndrome on right Depression (CMS/HCC) Headache IBS (irritable bowel syndrome) Neurocardiogenic syncope Nonhealing skin ulcer, limited to breakdown of skin (CMS/HCC) 12/29/2022 Sacral radiculopathy Past Surgical History: Procedure Laterality Date SECTION, LOW TRANSVERSE 2004 CHOLECYSTECTOMY 2009 DILATION AND CURETTAGE OF UTERUS HERNIA REPAIR 2010 PAP SMEAR 07/29/2021 negative PELVIC LAPAROSCOPY 1998 ROTATOR CUFF REPAIR 2014 Visit [facility]als OB Status Implant Smoking Status Every Day Review of Systems Musculoskeletal: Positive for back pain and neck pain. Neurological: Positive for headaches. Objective Physical Exam Vitals reviewed. Constitutional: Appearance: Normal appearance. HENT: Head: Normocephalic. Right Ear: A middle ear effusion is present. Left Ear: A middle ear effusion is present. Nose: Congestion present. Mouth/Throat: Mouth: Mucous membranes are moist. Pharynx: Posterior oropharyngeal erythema present. Eyes: Conjunctiva/sclera: Conjunctivae normal. Cardiovascular: Rate and Rhythm: Normal rate and regular rhythm. Pulmonary: Effort: Pulmonary effort is normal. Breath sounds: Normal breath sounds. Lymphadenopathy: Cervical: Cervical adenopathy present. Skin: General: Skin is warm and dry. Neurological: General: No focal deficit present. Mental Status: She is alert and oriented to person, place, and time. Psychiatric: Mood and Affect: Mood normal. Behavior: Behavior normal. Thought Content: Thought content normal. Assessment/Plan Diagnoses and all orders for this visit: Acute non-recurrent frontal sinusitis - cefdinir (Omnicef) 300 MG capsule; Take 1 capsule (300 mg) by mouth in the morning and 1 capsule (300 mg) before bedtime. Do all this for 10 days. Start the above as directed. Reviewed potential s/e with patient. Encouraged probiotic while on antibiotic. Increase water intake, get plenty of rest. Can take OTC allergy medication for symptomatic relief. Tylenol/Motrin prn. Follow up if no improvement in one week. Sore throat - POCT rapid strep A manually resulted Take ATB as ordered for sinusitis. You were negative for strept Vaginal yeast infection - fluconazole (Diflucan) 150 MG tablet; Take 1 tablet (150 mg) by mouth 1 (one) time per week for 14 days Take Diflucan for vaginal yeast infection. Take 1 and then repeat in 1 week if itching persists Radiculopathy of sacral region Pt is seeing neurology. She does not want any further testing at this time. If condition worsens, she will come back for further testing. No follow-ups on file. documented in this encounter [facility] 06-08-2024 Telephone encounter Note Form atting of this note might be different from the original. Sent. OARRS reviewed. [facility] 06-08-2024 Miscellaneous Notes Formattin g of this note might be different from the original. Sent. OARRS reviewed. documented in this encounter [facility] 05-09-2024 Telephone encounter Note Form atting of this note might be different from the original. OARRS reviewed. Sent. [facility] 05-09-2024 Miscellaneous Notes Formattin g of this note might be different from the original. OARRS reviewed. Sent. documented in this encounter [facility] 04-05-2024 Telephone encounter Note Form atting of this note might be different from the original. OARRS reviewed. [facility] 04-05-2024 Miscellaneous Notes Formattin g of this note might be different from the original. OARRS reviewed. documented in this encounter [facility] 03-31-2024 History of Presen t illness Narrative Images from the original note were not included. CHIEF COMPLAINT REASON FOR VISIT: ADD & post concussion syndrome HPI: Hayder Gutierres is a 44 y.o. female who presents for a follow up. She states she did get bumped up to the 2 mg of the naltrexone and focalin 10 mg daily. No side effects from medications. She states she is doing well on both. She states her right hand is almost fully straightened out. Especially noticed a difference in the past few weeks. She states her energy level is improved. She states her aches and pains are hard because she changed jobs. She states she just started taking fish oil and GOLO (weight loss). Denies any other concerns. CURRENT MEDICATIONS: ALLERGIES/DISCONTINUE MEDICATIONS Current Outpatient Medications Medication Instructions albuterol HFA (ProAir HFA) 90 mcg/act inhaler 1 puff, Inhalation, Every 4 hours PRN atorvastatin (LIPITOR) 40 mg, Oral, Every morning buPROPion SR (WELLBUTRIN SR) 150 mg, Oral, 2 times daily Cholecalciferol (Vitamin D) 125 MCG (5000 UT) capsule cinnamon 500 mg, Oral, Daily Collagen-Vitamin C-Biotin (COLLAGEN 1500/C PO) 1 tablet, Oral, Daily dexmethylphenidate XR (FOCALIN XR) 10 mg, Oral, Daily, Do not crush, chew, or split. diphenhydrAMINE (BENADRYL) 50 mg, Oral, Nightly PRN FLUoxetine (PROzac) 10 MG capsule TAKE 1 CAPSULE BY MOUTH EVERY DAY IN THE MORNING meloxicam (MOBIC) 7.5 mg, Oral, Daily Multiple Vitamins-Minerals (MULTIVITAMIN WOMEN PO) Naltrexone HCl Anhydrous powder 2 mg combined, Does not apply, Daily pantoprazole (ProtoNix) 40 MG EC tablet TAKE 1 TABLET BY MOUTH EVERY DAY Probiotic Product (DIGESTIVE ADV DIGESTIVE/IMMUNE PO) Rimegepant Sulfate (Nurtec) 75 MG tablet dispersible 1 tablet, Oral, Every other day, As needed for migraines. sucralfate (Carafate) 1 g tablet TAKE 1 TABLET BY MOUTH 4 TIMES A DAY ON AN EMPTY STOMACH tiZANidine (ZANAFLEX) 2 mg, Oral, 3 times daily PRN Wheat Dextrin (Benefiber) powder as directed Orally Allergies Allergen Reactions Codeine Unknown Hydrocodone Unknown Hydrocodone-Acetaminophen Hives Latex Unknown Penicillins Unknown There are no discontinued medications. PAST MEDICAL HISTORY: SURGICAL/SOCIAL/FAMILY HISTORY DEPRESSION SCREEN: Past Medical History: Diagnosis Date ADD (attention deficit disorder) Allergic Anemia Anxiety Asthma (CMS/HCC) Carpal tunnel syndrome on right Depression (CMS/HCC) Headache IBS (irritable bowel syndrome) Neurocardiogenic syncope Nonhealing skin ulcer, limited to breakdown of skin (CMS/HCC) 12/29/2022 Sacral radiculopathy Past Surgical History: Procedure Laterality Date SECTION, LOW TRANSVERSE 2003 CHOLECYSTECTOMY 2009 DILATION AND CURETTAGE OF UTERUS HERNIA REPAIR 2010 PAP SMEAR 07/29/2021 negative PELVIC LAPAROSCOPY 1998 ROTATOR CUFF REPAIR 2013 Social History Tobacco Use Smoking status: Every Day Types: Cigarettes Smokeless tobacco: Current Vaping Use Vaping status: Every Day Substance Use Topics Alcohol use: Yes Alcohol/week: 2.0 standard drinks of alcohol Types: 2 Standard drinks or equivalent per week Comment: Caffeine intake: coffee, soda Drug use: Never Family History Problem Relation Name Age of Onset Diabetes Mother Hypertension Father Heart disease Father Hyperlipidemia Father Hearing loss Father Cancer Maternal Grandmother Cancer Maternal Grandfather Diabetes Paternal Grandmother Hypertension Paternal Grandmother Heart disease Paternal Grandmother Diabetes Paternal Grandfather Hypertension Paternal Grandfather Heart disease Paternal Grandfather Depression: Not on file REVIEW OF SYMPTOMS: Review of Systems Constitutional: Negative for chills, diaphoresis, fatigue and fever. HENT: Negative for ear pain, tinnitus and trouble swallowing. Eyes: Negative for photophobia and visual disturbance. Respiratory: Negative for cough and shortness of breath. Cardiovascular: Negative for palpitations and leg swelling. Gastrointestinal: Negative for abdominal pain and nausea. Genitourinary: Negative for difficulty urinating and urgency. Musculoskeletal: Negative for arthralgias, back pain, myalgias, neck pain and neck stiffness. Neurological: Negative for tremors, weakness, light-headedness and numbness. Psychiatric/Behavioral: Negative for agitation, confusion and suicidal ideas. OBJECTIVE: 03/31/2024 11:30 AM 02/25/2024 10:25 AM 02/22/2024 1:11 PM Vitals BMI 37.69 kg/m2 38.08 kg/m2 37.69 kg/m2 BSA (m2) 1.92 m2 1.94 m2 1.92 m2 Systolic 108 122 Diastolic 76 78 Heart Rate 93 SpO2 97 % Resp 16 Height (in) 5' 5' 5' Weight (lb) 193 195 193 Visit Report Report Report Report EXAM: Neurological Exam Mental Status Awake, alert and oriented to person, place and time. Oriented to person, place and time. Recent and remote memory are intact. Speech is normal. Language is fluent with no aphasia. Attention and concentration are normal. Cranial Nerves CN II: Visual acuity is normal. Visual bhat full to confrontation. CN III, IV, : Extraocular movements intact bilaterally. Normal lids and orbits bilaterally. Pupils equal round and reactive to light bilaterally. CN V: Facial sensation is normal. CN VII: Full and symmetric facial movement. CN VIII: Hearing is normal. CN XII: Tongue midline without atrophy or fasciculations. Motor Normal muscle bulk throughout. Normal muscle tone. Right Left Wrist flexion 5 5 Wrist extension 5 5 Right Left Deltoid 5 5 Biceps 5 5 Triceps 5 5 Wrist flexor 5 5 Wrist extensor 5 5 Glutei 5 5 Iliopsoas 5 5 Quadriceps 5 5 Gastrocnemius 5 5 Anterior tibialis 5 5 Posterior tibialis 5 5 Sensory Light touch is normal in upper and lower extremities. Pinprick is normal in upper and lower extremities. Vibration is normal in upper and lower extremities. Reflexes Right Left Brachioradialis 2+ 2+ Biceps 2+ 2+ Patellar 2+ 2+ Achilles 2+ 2+ Right Plantar: downgoing Left Plantar: downgoing Right pathological reflexes: Rich's absent. Ankle clonus absent. Left pathological reflexes: Rich's absent. Ankle clonus absent. Coordination Ulhezu-jg-[id number], rapid alternating movements and eknc-sm-[id number] normal bilaterally without dysmetria. Gait Normal casual, toe, heel and tandem gait. Romberg is absent. PROCEDURE: NONE ASSESSMENT AND PLAN: Diagnoses and all orders for this visit: ADD (attention deficit disorder) without hyperactivity Continue Focalin 10 mg daily Radiculopathy of sacral region Continue LDN 2 mg daily Follow up 3 months. documented in this encounter [facility] 06-07-2023 Evaluation note Encounter Date Diagnosis Assessment Notes May, Right arm pain (ICD-10 - M79.601) May, Other [Right arm pain By her history and physical examination she does not have any clear indication of arterial compression. It is possible that she could have neurogenic thoracic outlet syndrome. I called PAUL Kingston who is her primary care provider. I discussed her physical exam and history with her. If she wishes to continue evaluation for potential neurogenic thoracic outlet syndrome then a neurology referral would be helpful. I will see her back on an as-needed basis. [facility] Other 09-30-2023 Chief complaint Narrative - Reported* HAYDER GUTIERRES is being seen for a consultation for intermittent chest pain. * 42-year-old female seen in cardiology consultation at the request of Dr. Anderson for further evaluation in regards to chest discomfort. Approximately within the last 2 weeks he sustained 1 episode of severe anterior and retrosternal chest discomfort that was excruciating in nature, went to [facility], ruled out for acute coronary syndrome and was discharged home. Details of the [facility] emergency room evaluation are unavailable. She apparently had CT of the chest that was unremarkable. * She has no prior history of myocardial infarction, revascularization, stroke, thromboembolic or bleeding disorder * She professes that she does have a strong family history including father and grandfather at early ages for myocardial infarctions/sudden . * Today's ECG is normal sinus rhythm and completely normal * She denies diabetes, does admit to vaping but negative cigarette use, she is a former smoker. 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 [facility] Work Phone: 1(113) 523-948506-28-2023 Chief complaint Narrative - Reported* HAYDER GUTIERRES is being seen for a consultation for intermittent chest pain. * 42-year-old female seen in cardiology consultation at the request of Dr. Anderson for further evaluation in regards to chest discomfort. Approximately within the last 2 weeks he sustained 1 episode of severe anterior and retrosternal chest discomfort that was excruciating in nature, went to [facility], ruled out for acute coronary syndrome and was discharged home. Details of the [facility] emergency room evaluation are unavailable. She apparently had CT of the chest that was unremarkable. * She has no prior history of myocardial infarction, revascularization, stroke, thromboembolic or bleeding disorder * She professes that she does have a strong family history including father and grandfather at early ages for myocardial infarctions/sudden . * Today's ECG is normal sinus rhythm and completely normal * She denies diabetes, does admit to vaping but negative cigarette use, she is a former smoker. 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 [facility] [address] DO Work Phone: 1(164) 665-192809-19-2022 NoteHISTORY: Head trauma x 3 weeks, headache, memory [...] and signed by Gerry Ott on 04/06/2022 1524[id number] History of Present illness NarrativeMsIris Gutierres is here for her right shoulder. She has been having some increased pain in the shoulderfor the last several months. She had a large rotator cuff tear back in 2013 and did well afterwards. She also had some neck issues at that time. She does get occasional numbness, tingling and burningas well as pain radiating down the arm. She is concerned about the shoulder pain and is here today as a new patient[facility] Work Phone: Evaluation note* Diagnosis Radiculopathy of sacral region [facility] Diagnosis Postconcussion syndrome ADD (attention deficit disorder) without hyperactivity Attention deficit disorder without mention of hyperactivity [facility] Diagnosis Postconcussion syndrome ADD (attention deficit disorder) without hyperactivity Attention deficit disorder without mention of hyperactivity [facility] Diagnosis Acute non-recurrent frontal sinusitis- Primary Sore throat Acute pharyngitis Vaginal yeast infection Candidiasis of vulva and vagina Radiculopathy of sacral region [facility] Diagnosis ADD (attention deficit disorder) without hyperactivity Attention deficit disorder without mention of hyperactivity Radiculopathy of sacral region [facility] Diagnosis Polyneuropathy- Primary Unspecified hereditary and idiopathic peripheral neuropathy Memory loss Weakness Other malaise and fatigue Disturbance of skin sensation CMV (cytomegalovirus) antibody positive Other and unspecified nonspecific immunological findings Episodic migraine (CMS/HCC) [facility]* Diagnosis Episodic migraine (CMS/HCC)- Primary Postconcussion syndrome ADD (attention deficit disorder) without hyperactivity Attention deficit disorder without mention of hyperactivity [facility] noteNo assessment information available[facility] Work Phone: Evaluation note* Diagnosis Postconcussion syndrome ADD (attention deficit disorder) without hyperactivity Attention deficit disorder without mention of hyperactivity [facility] Diagnosis CMV (cytomegalovirus) antibody positive- Primary Other and unspecified nonspecific immunological findings Migraine without aura and without status migrainosus, not intractable (CMS/HCC) ADD (attention deficit disorder) without hyperactivity Attention deficit disorder without mention of hyperactivity [facility] Narrative - Reported* Type Description Date Medical History anxiety Medical History chronic depression Medical History acid reflux Medical History back pain Medical History degenerative disc disease Medical History hypercholesterolemia Surgical History rotator cuff tear repair rt Surgical History hernia repair Surgical History cholecystectomy Surgical History C section Surgical History D&C Surgical History cross eye b/l correction Hospitalization History See Above Affectv Other Summary Purpose Family History Unknown Family Member Name Dates Details Family [...] history of hypertensi on: Father(V17.49, Z82.49) Status:Active Relationship Condition Age at Onset Recorded Date/T irene father Unknown Heart disease Unknown mother Family history of mental disorder Unknown Diabetes mellitus Unknown Advance Directives No Advanced Directives Records FoundNo [...] Advanced Directives Records Found Chief Complaint * [employer] Rt shoulder pain, xrays today * Hx of Rt RCR 08/01/13 by SARANYA Additional Source Comments INFORMATION SOURCE (unrecogn ized section and content) DATE CREATED AUTHOR 01/10/2018 [facility] DATE CREATED AUTHOR AUTHOR'S ORGANIZ ATION 04/19/2022 [facility] DATE CREATED AUTHOR AUTHOR'S ORGANIZ ATION 05/11/2022 [facility] DATE CREATED AUTHOR AUTHOR'S ORGANIZ ATION 01/28/2023 [employer] DATE CREATED AUTHOR AUTHOR'S ORGANIZ ATION 01/30/2023 [facility] DATE CREATED AUTHOR AUTHOR'S ORGANIZ ATION 02/12/2023 [facility] DATE CREATED AUTHOR AUTHOR'S ORGANIZ ATION 07/01/2024 [facility] EPIC DATE CREATED AUTHOR AUTHOR'S ORGANIZ ATION 07/09/2024 [facility] DATE CREATED AUTHOR AUTHOR'S ORGANIZ ATION 07/10/2024 [facility] DATE CREATED AUTHOR AUTHOR'S ORGANIZ ATION 07/11/2024 [facility] DATE CREATED AUTHOR AUTHOR'S ORGANIZ ATION 07/13/2024 [facility] DATE CREATED AUTHOR AUTHOR'S ORGANIZ ATION 08/28/2024 [facility] REASON FOR VISIT (unrecogniz ed section and content) Reason Onset Date Comments Med Refill 04/23/2024 Reason Onset Date Comments Med Refill 05/07/2024 Reason Onset Date Comments Med Refill 06/08/2024 Reason Onset Date Comments Med Refill 04/05/2024 Reason Onset Date Comments Med Refill 08/26/2024 Care Teams (unrecognized sec tion and content) Patent Leather Sorter Relationship Specialty Start Date End Date Shanon Penaloza MD [address] [facility] [address] [place] [address] PCP - General Family Medicine 12/28/22 Patent Leather Sorter Relationship Specialty Start Date End Date Shanon Penaloza MD [address] [facility] [address] [place] [address] PCP - General Family Medicine 12/28/22 Patent Leather Sorter Relationship Specialty Start Date End Date Shanon Penaloza MD [address] [facility] [address] [place] [address] PCP - General Family Medicine 12/28/22 Patent Leather Sorter Relationship Specialty Start Date End Date Shanon Penaloza MD [address] [facility] [address] [place] [address] PCP - General Family Medicine 12/28/22 Patent Leather Sorter Relationship Specialty Start Date End Date Shanon Penaloza MD [address] [facility] [address] [place] [address] PCP - General Family Medicine 12/28/22 Patent Leather Sorter Relationship Specialty Start Date End Date Shanon Penaloza MD [address] [facility] [address] [place] [address] PCP - General Family Medicine 12/28/22 Patent Leather Sorter Relationship Specialty Start Date End Date Shanon Penaloza MD [address] [facility] [address] [place] [address] PCP - General Family Medicine 12/28/22 Patent Leather Sorter Relationship Specialty Start Date End Date Shanon Penaloza MD [address] [facility] [address] [place] [address] PCP - General Family Medicine 12/28/22 Patent Leather Sorter Relationship Specialty Start Date End Date Shanon Penaloza MD [address] [facility] [address] [place] [address] PCP - General Family Medicine 12/28/22 Team Status: Active Member Role Status Dates Moiz Schneider DO Primary Care Provider Active Team Status: Inactive Member Role Status Dates Moiz Schneider DO Primary Care Provider Active Start: August 16, 2024 End: August 16, 2024 Jorge Walden MD Attending Provider Active St art: August 16, 2024 End: August 16, 2024 Patent Leather Sorter Relationship Specialty Start Date End Date Shanon Penaloza MD [address] [facility] [address] [place] [address] PCP - General Family Medicine 12/28/22 Goals (unrecognized section and content) Goals may be documented in a n alternate section FOR RECORDS PERTAINING TO PATIENTS WHO ARE [...] BE BASED ON THE PRIMARY CLINICAL RECORDS. [facility]. provides no warranty or guarantee of the accuracy or completeness of information in this document.
--- NOTE | 2024-08-31 13:46 | XR_ITS ---
The [address] [address] Patient Name: HAYDER GUTIERRES MRN: [id number] date: 1980 Sex: F Assigned Patient Location: [facility] Current Patient Location: Accession/Order Number: [id number] Exam Date: 08/31/2024 13:56 Report Date: 09/01/2024 08:12 At the request of: YESSY RING Procedure: XR humerus RT PROCEDURE: XR humerus RT HISTORY: Fall, Arm Pain COMPARISON: CT chest 12/24/2022, XR chest 03/05/2022 FINDINGS: BONES:No fracture, dislocation, bone lesion. Small cystic lesion within proximal humerus at level of surgical neck; unchanged and favoring benign etiology. Unremarkable glenohumeral joint and acromioclavicular joint. SOFT TISSUES:No visible soft tissue swelling. EFFUSION:None visible. OTHER: Negative. XR/XR humerus RT IMPRESSION: 1. No acute bone abnormality or significant degenerative changes. Electronically authenticated by: EM PRINCE Date: 09/01/2024 08:12
--- NOTE | 2024-08-31 13:46 | XR_ITS ---
The [address] [address] Patient Name: HAYDER GUTIERRES MRN: [id number] date: 1980 Sex: F Assigned Patient Location: [facility] Current Patient Location: [facility] Accession/Order Number: [id number] Exam Date: 08/31/2024 13:56 Report Date: 09/01/2024 08:14 At the request of: YESSY RING Procedure: XR hip RT min 2V PROCEDURE: XR hip RT min 2V HISTORY: Fall, Right Hip Pain COMPARISON: None. FINDINGS: BONES:Tiny ossification along superior and posterior rim of acetabulum. Unremarkable femoral head and joint spacing. Normal appearance of right-sided pelvis. IUD within midline pelvis appearing in appropriate position. SOFT TISSUES:No visible soft tissue swelling. EFFUSION:None visible. OTHER: Negative. XR/XR hip RT min 2V IMPRESSION: 1. No convincing acute bone abnormality. Tiny ossifications along rim of acetabulum favoring degenerative osteophytes or sequela of remote injury. No comparison studies. Electronically authenticated by: EM PRINCE Date: 09/01/2024 08:14
== END 2024-08-31 13:36 | disposition home or self-care (01) ==
LOC: RAD 13:37
PROVIDERS: PCP Family Medicine; Visit Provider Nurse Practitioner Family
DX: M25.551 Pain in right hip (principal); W19.XXXA Unspecified fall, initial encounter; M79.601 Pain in right arm
CPT/HCPCS: 73060; 73502

== ENCOUNTER 2025-06-05 19:56 | Outpatient (REF) | payer OTHER, SELFPAY ==
--- OUTSIDE RECORDS SUMMARY | 2025-06-05 20:01 | XMS_ITS | CCD ---
Author Organization [facility] CliniSyde Care Team Providers Care Reeler Operator Name Role Phone Cade Bae Unavailable Unavailable Family Physician Unavailable Unavailable Alice vailable Family Physician Unavailable Unavailable Alice vailable Shanon Penaloza Unavailable Unavailable Unavailable CA, DR CLAUDIO Admitting Unavailable CA, DR CLAUDIO Attending Unavailable CA, DR CLAUDIO Consulting Unavailable ZIEBER, DR EM Shah Consulting Unavailable JOSHUA, DR GILLIAM Admitting Unavailable JOSHUA, DR GILLIAM Attending Unavailable JOSHUA, DR GILLIAM Consulting Unavailable JOSHUA, DR GILLIAM Admitting Unavailable JOSHUA, DR GILLIAM Attending Unavailable JOSHUA, DR GILLIAM Consulting Unavailable ZIEBER, DR EM Shah Consulting Unavailable JOSHUA, DR GILLIAM Admitting Unavailable JOSHUA, DR GILLIAM Attending Unavailable BOYLSTON, DR JHON Smith Consulting Unavailable JOSHUA, DR GILLIAM Consulting Unavailable Renny, Dr. Stanislaw Rockwell Referring Unava ilable Renny, Dr. Stanislaw Rockwell Attending Unava ilable Ca, Dr. Shanon Bush Primary Care Unavaila ble Renny, Dr. Stanislaw Rockwell Attending Unava ilable Ca, Dr. Shanon Bush Primary Care Unavaila Roberto Carlos Motta Unavailable Shanon Penaloza MD Primary Care Provider SARABJIT ABARCA Admitting Unavailable SARABJIT ABARCA Attending Unavailable Austen Romero Admitting Unavailable Austen Romero Attending Unavailable SARABJIT ABARCA Attending Unavailable SARABJIT ABARCA Admitting Unavailable Moiz Schneider DO Primary Care Provider Jorge Walden MD Attending Provider [phone] Jorge Walden Attending Unavailable Jorge aWlden Admitting Unavailable Moiz Schneider Primary Care Unavailable SARABJIT ABARCA Attending Unavailable ANAMARIA RING Attending Unavailable HUANG OLSON Attending Unavailable GORDO PATTON Attending Unavailable GORDO PATTON Referring Unavailable GORDO PATTON Referring Unavailable AUSTEN ROMERO Attending Unavailable CATRACHO LEWIS Attending Unavailable HUANG OLSON Attending Unavailable AUSTEN ROMERO Attending Unavailable ANAMARIA RING Attending Unavailable SARABJIT ABARCA Attending Unavailable Allergies Allergy ClassificationReported Allergen(s)Allergy TypeDate of OnsetReaction(s) Facility (6 sources)Acetaminophen / HYDROcodone; Translations: [Vicodin TABS]Drug Allergy [facility] Work Phone: (20 sources)Codeine; Translations: [Codeine Derivatives]Drug Phdrvgk96-42-3289 [facility] Work Phone: (8 sources)natural latex rubber; Translations: [Latex]Allergy to substance (finding)91-94-0007orgbrRokgqnFayette [facility] Rep[facility] (7 sources)Penicillins; Translations: [Penicillins]Allergy to drug (finding) 85-65-1283chxfeCgeugbagcSelect [facility], [facility] (3 sources)Acetaminophen / HYDROcodone; Translations: [Vicodin]Drug Allergy 12-61-7735vhqvaWztUniversity [facility]als [facility] Repository (3 sources)Codeine; Translations: [codeine]Drug Chewdrm66-51-9685EwwmhnriHpc [facility] Repository (1 source)LatexDrug allergy (disorder)04-00-4192QfwFisher-[facility] (3 sources)Penicillin; Translations: [penicillin]Drug Tozuqbp64-46-0200ybgauVumUniversity Hospitals Geneva [facility] Center Repository (1 source)LatexDrug allergyhiMercy Hospital St. [facility]'s GettingHired Other (11 sources)Acetaminophen / HYDROcodoneDrug Aprkroa26-09-2472JwtjrHPZM Healthcare (20 sources)HYDROcodoneDrug Bcwcpnw07-02-8620KloczclOUXV Healthcare (20 sources)LatexAllergy to -87-3608HmkusddTCEL Healthcare (20 sources)PenicillinsDrug Dcclxky30-98-5346YbogjevNCLV Healthcare (20 sources)DULoxetineDrug Gfbvons92-89-9415XsmugONRL Healthcare (20 sources)TopiramatePropensity to adverse bmqmlhcaq63-17-6644PjfijFHSP Healthcare (2 sources)Acetaminophen; Translations: [acetaminophen]Drug Qictave58-11-0237 [facility] (1 source)CodeineDrug Kiorcne16-04-2007AwxsjhoqtAdams [facility] Repository (1 source)HYDROcodoneDrug Tsnrpnx07-79-5116FfyfzphviAdams County Hospital Repository (1 source)LatexDrug allergy (disorder)77-44-9827PkfbqxfkvAdams County Hospital Repository (1 source)PenicillinsDrug allergy (disorder)28-80-6650BvnqtconsAdams County Hospital Repository Medications Current Medications MedicationDrug Class(es)DatesSig (Normalized)Sig (Original)[id number] 200 actuat albuterol 0.09 mg/actuat metered dose inhaler (20 sources)beta2-Adrenergic Agonisttake 1 puff(s) by inhalation every four hours for wheezingalbuterol HFA (ProAir HFA) 90 mcg/act inhaler Inhale 1 puff every 4 (four) hours if needed for wheezing or shortness of breath Active Atogepant (Qulipta) 60 MG tablet (17 sources)Start: 08-30-2024 End: 04-55-0590imfa 1 tablet by mouth once dailyAtogepant (Qulipta) 60 MG tablet Indications: Migraine without aura and without status migrainosus,not intractable Take 60 mg by mouth Daily 90 tablet 2 08/30/2024 08/30/2025 Active Start: 08-30-2024 End: 30-43-1941jsku 1 tablet by mouth once dailyAtogepant (Qulipta) 60 MG tablet Indications: Migraine without aura and without status migrainosus,not intractable (CMS/HCC) Take 60 mg by mouth Daily 90 tablet 2 08/30/2024 08/30/2025 Activeatorvastatin 40 mg oral tablet (20 sources)HMG-CoA Reductase InhibitorStart: 18-00-0489jdzh 1 tablet by mouth once daily in the morningatorvastatin (Lipitor) 40 MG tablet Indications: Pure hypercholesterolemia TAKE 1 TABLET BY MOUTH EVERY DAY IN THE MORNING 100 tablet 3 01/26/2025 ActiveStart: 09-09-4439iyuf 1 tablet by mouth in the morning atorvastatin (Lipitor) 40 MG tablet Indications: Pure hypercholesterolemia Take 1 tablet (40 mg) bymouth in the morning. 100 tablet 3 01/24/2024 Activetake 1 tablet by mouth every twenty-four hoursAtorvastatin Calcium 40 MG 1 tablet Orally Once a day Ghgxdy98 hr buPROPion hydrochloride 150 mg extended release oral tablet (20 sources)AminoketoneStart: 93-34-9015kvwu 1 tablet by mouth twice daily buPROPion SR (Wellbutrin SR) 150 MG 12 hr tablet Indications: Mood changes TAKE 1 TABLET BY MOUTH TWICE A DAY 180 tablet 3 09/19/2024 ActiveStart: 09-20-2023 take 1 tablet by mouth twice dailybuPROPion SR (Wellbutrin SR) 150 MG 12 hr tablet Indications: Mood changes TAKE 1 TABLET BY MOUTH TWICE A DAY 60 tablet 11 09/20/2023 ActiveWellbutrin ActiveWellbutrin TABS TAKE 1 TABLET EVERY 12 HOURS DAILY. Quantity: 0 Refills: 0 Ordered: 27-Jan-2023 DO ActiveWellbutrin TABS Quantity: 0 Refills: 0 Ordered: 28-Jul-2021 DO Activecefdinir 300 mg oral capsule (5 sources)Cephalosporin AntibacterialStart: 06-22-2024 End: 05-34-8456inzz 1 capsule by mouth in the morningcefdinir (Omnicef) 300 MG capsule Indications: Acute non-recurrent frontal sinusitis Take 1 capsule(300 mg) by mouth in the morning and 1 capsule (300 mg) before bedtime. Do all this for 10 days. 20capsule 06/22/2024 07/02/2024 Activecholecalciferol 0.125 mg oral capsule (20 sources)Vitamin DCholecalciferol (Vitamin D) 125 MCG (5000 UT) capsule Activecinnamon bark 500 mg oral capsule (20 sources)take 1 capsule by mouth once dailycinnamon 500 MG capsule Take 500 mg by mouth Daily ActiveCollagen-Vitamin C-Biotin (COLLAGEN 1500/C PO) (20 sources)take 1 tablet by mouth once dailyCollagen-Vitamin C-Biotin (COLLAGEN 1500/C PO) Take 1 tablet by mouth 1 (one) time each day. Activedexamethasone 2 mg oral tablet (20 sources)CorticosteroidStart: 02-27-2025 End: 56-37-1664ncoSTBBZsahdj (Decadron) 2 MG tablet Indications: Radiculopathy of sacral region 2mg 3 pills po X3 days,2 pills po daily X3 days , then 1 pill po daily X3 days then stop 9 days 18 pills 18 tablet 1 02/27/2025 ActiveStart: 06-19-2024 End: 89-26-5410zblHSJPPflnji (Decadron) 2 MG tablet Indications: Radiculopathy of sacral region 2mg 3 pills po X3 days,2 pills po daily X3 days , then 1 pill po daily X3 days then stop 9 days 18 pills 18 tablet 1 06/19/2024 Arszbh55 hr dexmethylphenidate hydrochloride 10 mg extended release oral capsule (20 sources)Central Nervous System StimulantStart: 04-09-2025 End: 87-36-2997sitm 1 capsule by mouth once dailydexmethylphenidate XR (Focalin XR) 10 MG 24 hr capsule Indications: Postconcussion syndrome , ADD (attention deficit disorder) without hyperactivity Take 1 capsule (10 mg) by mouth Daily Do not crush, chew, or split. 30 capsule 05/08/2025 06/07/2025 ActiveStart: 10-02-2024 End: 84-49-7273oxpe 1 capsule by mouth once dailydexmethylphenidate XR (Focalin XR) 10 MG 24 hr capsule Indications: Postconcussion syndrome , ADD (attention deficit disorder) without hyperactivity Take 1 capsule (10 mg) by mouth Daily Do not crush, chew, or split. 30 capsule 03/06/2025 04/06/2025 Discontinued (Reorder)Start: 08-28-2024 End: 60-87-7383trrl 1 capsule by mouth once dailydexmethylphenidate XR (Focalin XR) 10 MG 24 hr capsule Indications: Postconcussion syndrome , ADD (attention deficit disorder) without hyperactivity Take 1 capsule (10 mg) by mouth Daily Do not crush, chew, or split. 30 capsule 08/28/2024 09/27/2024 ActiveStart: 05-09-2024 End: 57-05-0273fovs 1 capsule by mouth once dailydexmethylphenidate XR (Focalin XR) 10 MG 24 hr capsule Indications: Postconcussion syndrome , ADD (attention deficit disorder) without hyperactivity Take 1 capsule (10 mg) by mouth Daily Do not crush, chew, or split. 30 capsule 07/24/2024 08/26/2024 Discontinued (Reorder)Start: 03-02-2024 End: 67-07-6080igkh 1 capsule by mouth once dailydexmethylphenidate XR (Focalin XR) 10 MG 24 hr capsule Indications: Postconcussion syndrome , ADD (attention deficit disorder) without hyperactivity Take 1 capsule (10 mg) by mouth Daily Do not crush, chew, or split. 30 capsule 04/05/2024 05/07/2024 Discontinued (Reorder)diphenhydrAMINE hydrochloride 25 mg oral tablet (20 sources)Histamine-1 Receptor AntagonistdiphenhydrAMINE (BENADryl) 25 MG tablet Take 50 mg by mouth as needed at bedtime for allergies ActiveBenadryl Activefluconazole 150 mg oral tablet (6 sources)Azole AntifungalStart: 06-22-2024 End: 10-78-3401xjpc 1 tablet by mouth every weekfluconazole (Diflucan) 150 MG tablet Indications: Vaginal yeast infection Take 1 tablet (150 mg) bymouth 1 (one) time per week for 14 days 2 tablet 06/22/2024 07/06/2024 ActiveFLUoxetine 10 mg oral capsule (20 sources)Serotonin Reuptake InhibitorStart: 54-02-2828lard 1 capsule by mouth once daily in the morningFLUoxetine (PROzac) 10 MG capsule Indications: Mood changes TAKE 1 CAPSULE BY MOUTH EVERY DAY IN THE MORNING 90 capsule 5 12/20/2024 ActiveStart: 35-90-7553wnxw 1 capsule by mouth once daily in the morning FLUoxetine (PROzac) 10 MG capsule Indications: Mood changes TAKE 1 CAPSULE BY MOUTH EVERY DAY IN THE MORNING 90 capsule 3 12/15/2023 ActivePROzac Active Ibuprofen (7 sources)Nonsteroidal Anti-inflammatory DrugIbuprofen Activetake 1 tablet by mouth three times daily as neededIbuprofen 800 MG Oral Tablet TAKE 1 TABLET 3 TIMES DAILY NEEDED. Quantity: 0 Refills: 0 Ordered:27-Jan-2023 DO Active Ibuprofen 800 MG Oral Tablet Quantity: 0 Refills: 0 Ordered: 28-Jul-2021 DO Activemeloxicam 7.5 mg oral tablet (20 sources)Nonsteroidal Anti-inflammatory DrugStart: 11-15-2023 End: 38-27-5973cqff 1 tablet by mouth once dailymeloxicam (Mobic) 7.5 MG tablet Indications: Intractable chronic migraine with aura with status migrainosus Take 1 tablet (7.5 mg) by mouth Daily 30 tablet 11 11/08/2024 11/08/2025 Active methylPREDNISolone (2 sources)CorticosteroidStart: 10-31-2024 End: 95-82-0122gonmpxLWNTBFIhzepi (Medrol Dospak) 4 MG tablets Indications: Chronic right shoulder pain Follow schedule on package instructions 21 tablet 10/31/2024 11/07/2024 ActiveMultiple Vitamins-Minerals (MULTIVITAMIN WOMEN PO) (20 sources)Multiple Vitamins-Minerals (MULTIVITAMIN WOMEN PO) ActiveNaltrexone (18 sources)Opioid AntagonistStart: 27-43-3786Wofysbzbag HCl powder Indications: CMV (cytomegalovirus) antibody positive 2 mg Daily 30 g 2 08/30/2024 Active Start: 04-26-2024 End: 76-17-6513jhrl 4 mg by mouth once dailyNaltrexone HCl powder Indications: Radiculopathy of sacral region Take 4 mg by mouth Daily 30 g 04/26/2024 05/26/2024 ActiveNaltrexone HCl Anhydrous powder (6 sources)Start: 04-24-2024 End: 07-71-7960Mkrilhjzvu HCl Anhydrous powder Indications: Radiculopathy of sacral region 4 mg combined Daily 30 g 11 04/24/2024 05/24/2024 ActiveStart: 03-24-2024 End: 04-39-5873Txfoxhwwbd HCl Anhydrous powder Indications: Radiculopathy of sacral region 2 mg combined Daily 30 g 03/24/2024 04/23/2024 Discontinued (Reorder)Start: 03-24-2024 End: 36-23-3096Kozlizmyhs HCl Anhydrous powder Indications: Radiculopathy of sacral region 2 mg combined Daily 30 g 03/24/2024 04/23/2024 ActiveNALTREXONE HCL, PAIN, PO (20 sources)take 2 mg by mouth once dailyNALTREXONE HCL, PAIN, PO Take 2 mg by mouth Daily ActiveOXcarbazepine 300 mg oral tablet (20 sources)Anti-epileptic AgentStart: 06-28-2024 End: 43-87-1107jagj 1 tablet by mouth in the morningOXcarbazepine (Trileptal) 300 MG tablet Indications: Episodic migraine Take 1 tablet (300 mg) by mouth in the morning and 1 tablet (300 mg) before bedtime. 60 tablet 11 06/28/2024 06/28/2025 Activepantoprazole 40 mg delayed release oral tablet (20 sources)Proton Pump InhibitorStart: 81-52-1527mdjo 1 tablet by mouth once dailypantoprazole (ProtoNix) 40 MG EC tablet Indications: Gastro-esophageal reflux disease without esophagitis TAKE 1 TABLET BY MOUTH EVERY DAY 100 tablet 3 03/26/2025 ActiveStart: 53-45-2405ufyq 1 tablet by mouth once dailypantoprazole (ProtoNix) 40 MG EC tablet Indications: Gastro-esophageal reflux disease without esophagitis TAKE 1 TABLET BY MOUTH EVERY DAY 100 tablet 3 03/16/2024 ActiveProtonix Activetake 1 tablet by mouth once dailyProtonix 20 MG Oral Tablet Delayed Release TAKE 1 TABLET DAILY. Quantity: 0 Refills: 0 Ordered: 2022 DO ActiveProtonix 20 MG Oral Tablet Delayed Release Quantity: 0 Refills: 0 Ordered: 28-Jul-2021 DO ActivepredniSONE 10 mg oral tablet (4 sources)Start: 08-31-2024 End: 00-84-1817xuol 4 tablets by mouth once daily, then take 3 tablets by mouth once daily, then take 2 tablets bymouth once daily, then take 1 tablet by mouth once dailypredniSONE (Deltasone) 10 MG tablet Indications: Fall, initial encounter , Arm pain, lateral, right, Pain of right hip Take 4 tablets (40 mg) by mouth Daily for 4 days, THEN 3 tablets (30 mg) Daily for 4 days, THEN 2 tablets (20 mg) Daily for 4 days, THEN 1 tablet (10 mg) Daily for 4 days. 40 tablet 08/31/2024 09/16/2024 ActiveProbiotic Product (DIGESTIVE ADV DIGESTIVE/IMMUNE PO) (20 sources)Probiotic Product (DIGESTIVE ADV DIGESTIVE/IMMUNE PO) Active rimegepant 75 mg disintegrating oral tablet (20 sources)Start: 70-39-2735lpya 1 tablet by mouth every other day as needed Rimegepant Sulfate (Nurtec) 75 MG tablet dispersible Indications: Episodic migraine Take 1 tablet by mouth every other day As needed for migraines. 8 tablet 5 02/25/2024 Activesucralfate 1000 mg oral tablet (20 sources)Aluminum ComplexStart: 20-63-0218egmp 1 tablet by mouth four times dailysucralfate (Carafate) 1 g tablet Indications: Gastroesophageal reflux disease with esophagitis, unspecified whether hemorrhage TAKE 1 TABLET BY MOUTH 4 TIMES A DAY ON AN EMPTY STOMACH 120 tablet 5 07/15/2023 ActiveCarafate Active Carafate TABS TAKE 1 TABLET EVERY 12 HOURS DAILY. Quantity: 0 Refills: 0 Ordered: 27-Jan-2023 DO ActiveCarafate TABS Quantity: 0 Refills: 0 Ordered: 28-Jul-2021 DO ActivetiZANidine 2 mg oral tablet (20 sources)Central alpha-2 Adrenergic AgonistStart: 99-85-0480vpyo 1 tablet by mouth three times daily as needed for muscle spasmstiZANidine (Zanaflex) 2 MG tablet Indications: Degeneration of cervical intervertebral disc TAKE 1 TABLET BY MOUTH THREE TIMES A DAY NEEDED FOR MUSCLE SPASM 90 tablet 3 03/23/2025 ActiveStart: 90-73-1263jrxh 1 tablet by mouth three times daily as needed for muscle spasmstiZANidine (Zanaflex) 2 MG tablet Indications: Degeneration of cervical intervertebral disc TAKE 1 TABLET BY MOUTH THREE TIMES A DAY NEEDED FOR MUSCLE SPASM 90 tablet 3 10/23/2024 ActiveStart: 14-98-9303cahb 1 tablet by mouth three times daily as needed for muscle spasmstiZANidine (Zanaflex) 2 MG tablet Indications: Degeneration of cervical intervertebral disc TAKE 1 TABLET BY MOUTH 3 TIMES A DAY NEEDED FOR MUSCLE SPASMS 90 tablet 2 08/18/2024 Active Start: 19-91-4698yosu 1 tablet by mouth three times daily as needed for muscle spasmstiZANidine (Zanaflex) 2 MG tablet Indications: Degeneration of cervical intervertebral disc TAKE 1 TABLET BY MOUTH 3 TIMES A DAY NEEDED FOR MUSCLE SPASMS 270 tablet 05/15/2024 ActiveStart: 83-97-9734mbax 1 tablet by mouth three times daily as needed for muscle spasmstiZANidine (Zanaflex) 2 MG tablet Indications: Degeneration of cervical intervertebral disc TAKE 1 TABLET BY MOUTH 3 TIMES A DAY NEEDED FOR MUSCLE SPASMS 270 tablet 01/26/2024 ActiveZanaflex Activetake 1 tablet by mouth at bedtimeZanaflex TABS TAKE 1 TABLET AT BEDTIME. Quantity: 0 Refills: 0 Ordered: 27-Jan-2023 DO ActiveZanaflex TABS Quantity: 0 Refills: 0 Ordered: 28-Jul-2021 DO Activewheat dextrin 3000 mg powder for oral solution (20 sources)Wheat Dextrin (Benefiber) powder Active Completed/Discontinued Medications MedicationDrug Class(es)DatesSig (Normalized)Sig (Original)Atogepant (Qulipta) 30 MG tablet (9 sources)Start: 07-24-2024 End: 09-34-6992oool 1 tablet by mouth once dailyAtogepant (Qulipta) 30 MG tablet Indications: Episodic migraine (CMS/HCC) Take 30 mg by mouth Daily30 tablet 2 07/24/2024 08/30/2024 Discontinued (Dose adjustment)Start: 07-24-2024 End: 39-95-2011guxa 1 tablet by mouth once dailyAtogepant (Qulipta) 30 MG tablet Indications: Episodic migraine (CMS/HCC) Take 30 mg by mouth Daily30 tablet 2 07/24/2024 10/22/2024 Active End: 62-57-4104opjk 1 tablet by mouth once dailyAtogepant (Qulipta) 30 MG tablet Take 30 mg by mouth Daily 07/24/2024 Discontinued (Reorder)take 1 tablet by mouth once dailyAtogepant (Qulipta) 30 MG tablet Take 30 mg by mouth Daily ActiveBetamethasone Sodium Phosphate 6 MG/ML Injection Solution (2 sources)Start: 35-04-5163Vziayqqpixhsj Sodium Phosphate 6 MG/ML Injection Solution 2 ml right shoulder Quantity: 0 Refills: 0 Ordered: 28-Jul-2021 Cade Ramos MD Start : 28-Jul-2021 Vabxpwht09 ml lidocaine hydrochloride 10 mg/ml injection (2 sources)Antiarrhythmic, Amide Local AnestheticStart: 52-97-4140Qhdkcymtk HCl - 1 % Injection Solution 5 ml right shoulder Quantity: 0 Refills: 0 Ordered: 28-Jul-2021 Cade Ramos MD Start : 28-Jul-2021 Completetopiramate (2 sources)Topamax TABS Quantity: 0 Refills: 0 Ordered: 10-Chemo-2022 DO Active Problems Active Problems Problem ClassificationProblemDateDocumented DateEpisodic/ChronicAsthma (20 sources)Unspecified asthma, uncomplicated; Translations: [Asthma]Onset: [id number] and vision defects (6 sources)Disorder of vision; Translations: [Problems with sight]Chronic Delirium, dementia, and amnestic and other cognitive disorders (20 sources)Postconcussion syndrome; Translations: [Postconcussional syndrome] Onset: 404789-09-7908ApstpviUlibqgyh of white blood cells (20 sources)Leukocytosis; Translations: [Elevated white blood cell count, unspecified]Onset: 040311-48-0865DtndgasHiknbampp of lipid metabolism (20 sources)Pure hypercholesterolemia; Translations: [Pure hypercholesterolemia, unspecified]Onset: 735601-64-8393HqrjjxzGnhqmukzu usually diagnosed in infancy, childhood, or adolescence (20 sources)Attention deficit hyperactivity disorder, predominantly inattentive type; Translations: [Other specified behavioral and emotional disorders with onset usually occurring in childhood and adolescence]Onset: ChronicE Codes: Fall (2 sources)Fall; Translations: [Unspecified fall, initial encounter]08-31-2024 EpisodicEsophageal disorders (20 sources)Gastroesophageal reflux disease; Translations: [Esophageal reflux] Onset: 497199-75-2687LwnyfuvGbarzlfw; including migraine (20 sources)Migraine, unspecified, not intractable, without status migrainosus; Translations: [Migraine, unspecified, without mention of intractable migraine without mention of status migrainosus]Onset: 901291-08-9979Rsacljv Immunizations and screening for infectious disease (5 sources)Encounter for screening for human papillomavirus (HPV); Translations: [Positive measurement finding]Onset: 609898-65-8513IoiuiyopTiniijm (2 sources)Candidiasis of vagina; Translations: [Vaginal yeast infection] 01-27-4260IvliibchIowit and ill-defined heart disease (4 sources)Heart disease; Translations: [Other ill-defined heart diseases] ChronicOther and ill-defined heart disease (20 sources)Cardiomegaly; Translations: [Cardiomegaly]Onset: 12-29-2022 61-15-8709HsgudlyDopwn connective tissue disease (2 sources)Impingement syndrome of shoulder region; Translations: [Other affections of shoulder region, not elsewhere classified]EpisodicOther connective tissue disease (6 sources)H/O: arthritis; Translations: [Personal history of arthritis]Episodic Other connective tissue disease (1 source)Pain in right armEpisodicOther connective tissue disease (2 sources)Pain in upper limb; Translations: [Pain in right arm]08-31-2024 EpisodicOther connective tissue disease (2 sources)Internal impingement of right shoulder; Translations: [Impingement syndrome of right shoulder]57-38-1747HimcfrjvZpnbq ear and sense organ disorders (6 sources)Ear, nose and throat disorder; Translations: [Other and unspecified diseases of upper respiratory tract]EpisodicOther gastrointestinal disorders (6 sources)Disorder of digestive system; Translations: [Other digestive problems]EpisodicOther lower respiratory disease (6 sources)Abnormal breathing; Translations: [Respiratory abnormality, unspecified]EpisodicOther nervous system disorders (1 source)Thoracic outlet syndrome; Translations: [Brachial plexus disorders] ChronicOther nervous system disorders (20 sources)Carpal tunnel syndrome of right wrist; Translations: [Carpal tunnel syndrome, right upper limb]Onset: 295634-36-2101XgrwlpiOwjqe nervous system disorders (2 sources)Polyneuropathy; Translations: [Polyneuropathy, unspecified]06-28-2024 ChronicOther nervous system disorders (6 sources)Numbness and tingling sensation of skin; Translations: [Disturbance of skin sensation]EpisodicOther non-traumatic joint disorders (6 sources)Shoulder pain; Translations: [Pain in joint, shoulder region]Episodic Other non-traumatic joint disorders (4 sources)Disorder of shoulder; Translations: [Other specified disorders of joint, shoulder region]EpisodicOther non-traumatic joint disorders (2 sources)Hip pain; Translations: [Pain in right hip]11-93-5900FjtmupfvHdlhn non-traumatic joint disorders (2 sources)Chronic pain of right upper limb; Translations: [Pain in right shoulder]12-97-2405VuhxkkmrGfaxf nutritional; endocrine; and metabolic disorders (4 sources)Obesity; Translations: [Obesity, unspecified]ChronicOther nutritional; endocrine; and metabolic disorders (20 sources)Body mass index 30+ - obesity; Translations: [Body mass index (BMI) 38.0-38.9, adult]Onset: 469749-99-8693CfojirhQpbrn nutritional; endocrine; and metabolic disorders (20 sources)Obesity caused by energy imbalance; Translations: [Morbid (severe) obesity due to excess calories]Onset: 653235-12-4790NwjipszGwvxg screening for suspected conditions (not mental disorders or infectious disease) (17 sources)Other abnormal and inconclusive findings on diagnostic imaging of breast; Translations: [Encounter for screening mammogram for malignant neoplasm of breast]Onset: 89-13-0371FbzzxthxYjpaq upper respiratory infections (4 sources)Sore throat symptom; Translations: [Acute pharyngitis, unspecified] 70-02-4146KzfqxyimDeyzpfqqt and history of mental health and substance abuse codes (4 sources)Ex-smoker; Translations: [Personal history of tobacco use]Episodic Spondylosis; intervertebral disc disorders; other back problems (20 sources)Disorder of lumbar disc; Translations: [Bulging lumbar disc]Onset: 337313-06-8804QazrxdoRvqvkdp and strains (2 sources)Shoulder strain; Translations: [Strain of unspecified muscle, fascia and tendon at shoulder and upper arm level, right arm, initial encounter] 67-06-7980VtihxillUrwuiitmq-related disorders (20 sources)Nicotine dependence, unspecified, uncomplicated; Translations: [Nicotine dependence]Onset: 417323-32-2351OlzluzvUorxaifc lupus erythematosus and connective tissue disorders (1 source)Sicca syndrome, unspecified; Translations: [Sjogren syndrome, unspecified]Onset: 86-89-3118ZgzacdnTxvdboepzzji (1 source)Unknown / UNK(Unknown)Onset: 60-98-2482Dxxdsgpcabcy (2 sources)Chronic pain of right upper eibi16-06-1363 Past or Other Problems Problem ClassificationProblemDateDocumented DateEpisodic/ChronicBiliary tract disease (20 sources)Postcholecystectomy syndrome; Translations: [Postcholecystectomy syndrome]Onset: 08-41-708863568552-62-5377SujzbcztFglmenkvq and vision defects (20 sources)Blurring of visual image; Translations: [Other visual disturbances] Onset: 958809-47-2044YqdjmnlmIjcenoh dysrhythmias (20 sources)Tachycardia; Translations: [Tachycardia, unspecified]Onset: 023009-60-5131DdcjddnbEoidcnu ulcer of skin (20 sources)Chronic ulcer of skin; Translations: [Non-pressure chronic ulcer of skin of other sites limited to breakdown of skin]Onset: 12-29-2022 Resolved: 829852-79-5795SydykqxSotcsziarm associated with dizziness or vertigo (20 sources)Dizziness; Translations: [Dizziness and giddiness]Onset: 10-07-2023 09-73-8009ZmyojbefKmowojzw mellitus without complication (20 sources)Impaired fasting glycemia; Translations: [Impaired fasting glucose] Onset: 279757-38-2738JfjozmezBofkw disorders and dislocations; trauma-related (20 sources)Dislocation of temporomandibular joint; Translations: [Dislocation of jaw, unspecified side, initial encounter]Onset: 675261-98-7838Mfefrocv Malaise and fatigue (20 sources)Asthenia; Translations: [Weakness]Onset: EpisodicNonspecific chest pain (20 sources)Chest pain; Translations: [Chest pain, unspecified]Onset: 12-30-2022 45-41-0119PhmjgtqxKlqlu connective tissue disease (20 sources)Pain in right arm; Translations: [Pain in right arm]Onset: 361519-58-7448ZdqtzpaoRedzi nervous system disorders (20 sources)Skin sensation disturbance; Translations: [Unspecified disturbances of skin sensation]Onset: 965305-94-2246LxozocrvQsado upper respiratory infections (20 sources)Chronic sinusitis, unspecified; Translations: [Sinusitis]Onset: 03-05-2022 Resolved: 69-68-9205JhfqroiFudfnowv codes; unclassified (1 source)Family history of malignant neoplasm of other genital organs; Translations: [FAM HX MALIG NEOPLSM OTH GENIT ORGN]Onset: 16-52-2713Olyyipjd Residual codes; unclassified (1 source)Family history of malignant neoplasm of kidney; Translations: [FAM HX MALIGNANT NEOPLASM KIDNEY]Onset: 72-19-7974HjejzsqmHhmzemyq codes; unclassified (1 source)Family history of malignant neoplasm of other organs or systems; Translations: [FAM HX MALIG NEOPLASM OTH ORGN/SYS]Onset: 73-49-0680Gwegifaf Residual codes; unclassified (20 sources)Family history of cardiac disorder; Translations: [Family history of ischemic heart disease and other diseases of the circulatory system]Onset: 987553-57-0231IxaikiczLkadegnd codes; unclassified (20 sources)Amnesia; Translations: [Other amnesia]Onset: 750275-40-9009 EpisodicSpondylosis; intervertebral disc disorders; other back problems (20 sources)Nerve root disorder; Translations: [Radiculopathy, sacral and sacrococcygeal region]Onset: 524044-41-6679CcjcrgwmLbwiwga (20 sources)Vasovagal syncope; Translations: [Syncope and collapse]Onset: 09-30-2011 Resolved: 054652-73-3811MsofvoorBrlryntbunye (1 source)[facility] [address] H50.05Onset: 61-31-9422Zmslbudssgth (4 sources)Positive measurement okvkmcc89-91-0538Mgsgdiqgqvdk (1 source)Episodic migraine (CMS/HCC)07-24-2024 Results Test NameValueInterpretationReference RangeFacilityMR SHOULDER RIGHT WO IV CONTRASTon 87-35-2008CY SHOULDER RIGHT WO IV CONTRASTEXAMINATION/TECHNIQUE: MR SHOULDER RIGHT WO IV CONTRAST HISTORY: Right shoulder pain. Recent fall. COMPARISON: Radiographs 10/31/2024. RESULT: Rotator Cuff Tendons: Probable changes from prior rotator cuff repair. Mild to moderate tendinosis involving supraspinatus and infraspinatus, without evidence for full-thickness tear. Subscapularis and teres minor appear intact. Long Head Biceps Tendon: Appears intact with appropriate location. Muscle: Muscle bulk and signal intensity are within normal limits. Labrum: Areas of fraying and/or tearing. Bones and Marrow: No evidence of fracture or bone marrow replacing process. Glenohumeral Joint: No measurable full-thickness chondral defect. Small joint effusion. Acromioclavicular Joint: Mild degenerative changes. Other: Mild subacromial-subdeltoid bursal thickening/fluid. IMPRESSION: Rotator cuff tendinosis and postsurgical changes without evidence for full- thickness tear. ELECTRONICALLY SIGNED BY: Cade Morales MDNormalNot AvailableXR SHOULDER 2+ VIEWS RIGHTon 85-55-9774SN SHOULDER 2+ VIEWS RIGHTEXAM: XR SHOULDER 2+ VIEWS RIGHT REASON FOR STUDY: Persistent right proximal humerus pain, post fall COMPARISON: None FINDINGS: 4 views Alignment: Appropriate Joint spaces: Preserved there are cystic changes in the humeral head at the greater tuberosity and laterally at the femoral head/neck junction. May be degenerative. Fractures: None Soft Tissues: No soft tissue swelling or apparent joint effusion. IMPRESSION: Subchondral smooth sclerotic marginated cystic lesions in the proximal humerus, potentially degenerative, postsurgical or small fibrous cortical defects. No acute fracture or dislocation. Dictated on: 10/31/2024 11:35 AM This report has been electronically signed and approved by the interpreting Radiologist.NormalNot AvailableXR Shoulder - right 2 Viewson 43-02-1223KRGB: XR SHOULDER 2+ VIEWS RIGHT REASON FOR STUDY: Persistent right proximal humerus pain, post fall COMPARISON: None FINDINGS: 4 views Alignment: Appropriate Joint spaces: Preserved there are cystic changes in the humeral head at the greater tuberosity and laterally at the femoral head/neck junction. May be degenerative. Fractures: None Soft Tissues: No soft tissue swelling or apparent joint effusion. IMPRESSION: Subchondral smooth sclerotic marginated cystic lesions in the proximal humerus, potentially degenerative, postsurgical or small fibrous cortical defects. No acute fracture or dislocation. Dictated on: 10/31/2024 11:35 AM This report has been electronically signed and approved by the interpreting Radiologist. Cade Pham MD - 10/31/2024 EXAM: XR SHOULDER 2+ VIEWS RIGHT REASON FOR STUDY: Persistent right proximal humerus pain, post fall COMPARISON: None FINDINGS: 4 views Alignment: Appropriate Joint spaces: Preserved there are cystic changes in the humeral head at the greater tuberosity and laterally at the femoral head/neck junction. May be degenerative. Fractures: None Soft Tissues: No soft tissue swelling or apparent joint effusion. IMPRESSION: Subchondral smooth sclerotic marginated cystic lesions in the proximal humerus, potentially degenerative, postsurgical or small fibrous cortical defects. No acute fracture or dislocation. Dictated on: 10/31/2024 11:35 AM This report has been electronically signed and approved by the interpreting Radiologist. [facility] HealthcareRadiology Study observation (narrative)NOM HealthcareXR Shoulder - right 2 ViewsOrdered By: Cade Lainez on 38-84-1031ZIHM Healthcare Work Phone: XR Hip - right 3 Viewson 51-95-[place]143[place], [place] [address] XRay Report Signed Patient: HAYDER RIZZO MR#: [id number] : 1980 Acct:[id number] Age/Sex: 44 / F ADM Date: 08/31/24 Loc: [facility] Attending Dr: ANAMARIA RING Ordering Physician: ANAMARIA RING Date of Service: 08/31/24 Procedure(s): XR hip RT min 2V Accession Number(s): [id number] cc: SHANON PENALOZA SHER[place] [id number] Patient Name: HAYDER RIZZO MRN: [id number] date: 1980 Sex: F Assigned Patient Location: [facility] Current Patient Location: [facility] Accession/Order Number: [id number] Exam Date: 08/31/2024 13:56 Report Date: 09/01/2024 08:14 At the request of: ANAMARIA RING Procedure: XR hip RT min 2V PROCEDURE: XR hip RT min 2V HISTORY: Fall, Right Hip Pain COMPARISON: None. FINDINGS: BONES:Tiny ossification along superior and posterior rim of acetabulum. Unremarkable femoral head and joint spacing. Normal appearance of right-sided pelvis. IUD within midline pelvis appearing in appropriate position. SOFT TISSUES:No visible soft tissue swelling. EFFUSION:None visible. OTHER: Negative. XR/XR hip RT min 2V IMPRESSION: 1. No convincing acute bone abnormality. Tiny ossifications along rim of acetabulum favoring degenerative osteophytes or sequela of remote injury. No comparison studies. Electronically authenticated by: EM PRINCE Date: 09/01/2024 08:14 Dictated By: Em Prince M.D. Signed By: 09/01/24816 DD/ 3 TD/TT: Licensing Worker:SALadiolomar, Radiologist, - 09/01/2024 [place] [address] XRay Report Signed Patient: HAYDER RIZZO MR#: [id number] : 1980 Acct:[id number] Age/Sex: 44 / F ADM Date: 08/31/24 Loc: RAD Attending Dr: ANAMARIA RING Ordering Physician: ANAMARIA RING Date of Service: 08/31/24 Procedure(s): XR hip RT min 2V Accession Number(s): [id number] cc: SHANON PENALOZA ; ANAMARIA RING [place] [address] Patient Name: HAYDER RIZZO MRN: [id number] date: 1980 Sex: F Assigned Patient Location: [facility] Current Patient Location: [facility] Accession/Order Number: [id number] Exam Date: 08/31/2024 13:56 Report Date: 09/01/2024 08:14 At the request of: ANAMARIA RING Procedure: XR hip RT min 2V PROCEDURE: XR hip RT min 2V HISTORY: Fall, Right Hip Pain COMPARISON: None. FINDINGS: BONES:Tiny ossification along superior and posterior rim of acetabulum. Unremarkable femoral head and joint spacing. Normal appearance of right-sided pelvis. IUD within midline pelvis appearing in appropriate position. SOFT TISSUES:No visible soft tissue swelling. EFFUSION:None visible. OTHER: Negative. XR/XR hip RT min 2V IMPRESSION: 1. No convincing acute bone abnormality. Tiny ossifications along rim of acetabulum favoring degenerative osteophytes or sequela of remote injury. No comparison studies. Electronically authenticated by: EM PRINCE Date: 09/01/2024 08:14 Dictated By: Em Prince M.D. Signed By: 09/01/24816 DD/ 3 TD/TT: Licensing Worker: [facility] HealthcareRadiology Study observation (narrative)NOM HealthcareXR Hip - right 3 ViewsOrdered By: Radiologist Radiology on 52-01-1147[employer] Work Phone: XR Humerus - right Viewson 54-00-8400[place], [place] [address] XRay Report Signed Patient: HAYDER RIZZO MR#: [id number] : 1980 Acct:[id number] Age/Sex: 44 / F ADM Date: 08/31/24 Loc: RAD Attending Dr: ANAMARIA RING Ordering Physician: ANAMARIA RING Date of Service: 08/31/24 Procedure(s): XR humerus RT Accession Number(s): [id number] cc: SHANON PENALOZA ; ANAMARIA RING [place] [id number] Patient Name: HAYDER RIZZO MRN: [id number] date: 1980 Sex: F Assigned Patient Location: [facility] Current Patient Location: Accession/Order Number: [id number] Exam Date: 08/31/2024 13:56 Report Date: 09/01/2024 08:12 At the request of: ANAMARIA RING Procedure: XR humerus RT PROCEDURE: XR humerus RT HISTORY: Fall, Arm Pain COMPARISON: CT chest 12/24/2022, XR chest 03/05/2022 FINDINGS: BONES:No fracture, dislocation, bone lesion. Small cystic lesion within proximal humerus at level of surgical neck; unchanged and favoring benign etiology. Unremarkable glenohumeral joint and acromioclavicular joint. SOFT TISSUES:No visible soft tissue swelling. EFFUSION:None visible. OTHER: Negative. XR/XR humerus RT IMPRESSION: 1. No acute bone abnormality or significant degenerative changes. Electronically authenticated by: EM PRINCE Date: 09/01/2024 08:12 Dictated By: Em Prince M.D. Signed By: 09/01/24813 DD/ 1 TD/TT: Licensing Worker:SALadiolJose nelson, - 09/01/2024 [place] [address] XRay Report Signed Patient: HAYDER RIZZO MR#: [id number] : 1980 Acct:[id number] Age/Sex: 44 / F ADM Date: 08/31/24 Loc: RAD Attending Dr: ANAMARIA RING Ordering Physician: ANAMARIA RING Date of Service: 08/31/24 Procedure(s): XR humerus RT Accession Number(s): [id number] cc: SHANON PENALOZA ; ANAMARIA RING [place] [address] Patient Name: HAYDER RIZZO MRN: [id number] date: 1980 Sex: F Assigned Patient Location: [facility] Current Patient Location: Accession/Order Number: [id number] Exam Date: 08/31/2024 13:56 Report Date: 09/01/2024 08:12 At the request of: ANAMARIA RING Procedure: XR humerus RT PROCEDURE: XR humerus RT HISTORY: Fall, Arm Pain COMPARISON: CT chest 12/24/2022, XR chest 03/05/2022 FINDINGS: BONES:No fracture, dislocation, bone lesion. Small cystic lesion within proximal humerus at level of surgical neck; unchanged and favoring benign etiology. Unremarkable glenohumeral joint and acromioclavicular joint. SOFT TISSUES:No visible soft tissue swelling. EFFUSION:None visible. OTHER: Negative. XR/XR humerus RT IMPRESSION: 1. No acute bone abnormality or significant degenerative changes. Electronically authenticated by: EM PRINCE Date: 09/01/2024 08:12 Dictated By: Em Prince M.D. Signed By: 09/01/24813 DD/ 1 TD/TT: Licensing Worker: NOMRy HealthcareRadiology Study observation (narrative)[facility]S HealthcareXR Humerus - right ViewsOrdered By: Radiologist Radiology on 76-04-9415FR[facility]W Healthcare Work Phone: C reactive protein [Mass/volume] in Serum or Plasma Ordered By: Jorge Walden on 58-29-5674EYE [Mass/Vol]C reactive protein [Mass/volume] in Serum or Plasma0.0-0.5FOhioHealth Arthur G.H. Bing, MD, Cancer CenterC- Reactive Proteinon 34-30-0811MJD [Mass/Vol]mg/LNormal0.0-0.5The [facility] Physician GroupComment on above:Result Comment: PERFORMED BY: [place] [address] PATHOLOGIST [employer] PIN[employer] BILL KELLY M.D.Performed By: #### SSA, SSB #### [facility] , #### CRP, ESR #### [place] [address] USAErythrocyte Sedimentation Rateon 92-46-0740VXY (Bld) [Velocity]1 mm/hNormal0-19The [facility] Physician GroupComment on above:Result Comment: PERFORMED BY: [place] [address] PATHOLOGIST [employer] BILL KELLY M.D.Performed By: #### SSA, SSB #### [facility] , #### CRP, ESR #### [place] [address] USAErythrocyte sedimentation rate by Photometric method Ordered By: Jorge Walden on 30-07-9036QVR Photometric method (Bld) [Velocity] Erythrocyte sedimentation rate by Photometric method0-[facility] CenterS-A/Ro Sjogrens Antibodyon 25-00-4455OE-A/Ro Sjogrens Antibody <0.0Xsmozw0.0-0.9The [facility] Physician [facility] Memorial HospitalComment on above:Performed By: #### SSA, SSB #### [facility] , #### CRP, ESR #### [place] [address] USASS-B/La Sjogrens Antibodyon 01-31-9304SZ-B/La Sjogrens Antibody<0.9Eqwlxy1.0-0.9The [facility] Physician GroupComment on above:Result Comment: Performed at: - [address] [id number] Digital Research Analyst: Adonis Glass PhD, Phone: [phone] PERFORMED BY: [facility] [address] [place] [address] PATHOLOGIST [employer] BILL KELLY M.D.Performed By: #### SSA, SSB #### [facility] , #### CRP, ESR #### [facility] [address] [place] [address] USARF Quanton 93-28-8501Fviqiaytgf factor Qn[IU]/mLInvalid Interpretation Code<14.0[facility] HospitalComment on above:Result Comment: Performed at: [address] [id number] PhD Maria Luisa LambPerformed By: #### [id number] #### [facility] [address] [place], [place] [address]OZAVIIV AUTHORIZATIONon 82-80-0116Echrxba AuthorizationComment Invalid Interpretation CodeFort Hamilton HospitalComment on above:Result Comment: Written Authorization Received. Authorization received from ORIGINAL ORDER 07-10-2024 Logged by Ivette Haines Performed at: [address] [id number] PhD Maria Luisa LambPerformed By: #### [id number] #### [facility] [address] [place], [place] [address]XBD w/Reflex if POSon 45-53-4867Elfoxdc Ab Ql (S)Negative Invalid Interpretation CodeNegativeFort Hamilton HospitalComment on above: Result Comment: Performed at: [address] [id number] PhD Maria Luisa Booformed By: #### [id number] #### [facility] [address] [place], [place] [address]IAJ Antibody Profileon 03-15-6333TYH capsid IgG IA Qn (S)247.0 unit/mLHigh0.0-17.9[facility] HospitalComment on above:Result Comment: Negative <18.0 Equivocal 18.0 - 21.9 Positive >21.9Performed By: #### [id number] #### [facility] [address] [place], [place] [address]SIV capsid IgM IA Qn (S)<36.0Invalid Interpretation Code 0.0-35.9[facility] HospitalComment on above:Result Comment: Negative <36.0 Equivocal 36.0 - 43.9 Positive >43.9Performed By: #### [id number] #### [facility] [address] [place] [address]PWJ nuclear IgG IA Qn (S)207.0 unit/mLHigh0.0-17.9[facility] HospitalComment on above:Result Comment: Negative <18.0 Equivocal 18.0 - 21.9 Positive >21.9Performed By: #### [id number] #### [facility] [address] [place] [address]Iauazem comment (Unsp spec) [Interp]CommentInvalid Interpretation CodeFort Hamilton HospitalComment on above:Result Comment: EBV Interpretation Chart Bosch: Antibody Present [...] never develop antibodies to EBNA. Performed at: [facility] [address], [place] [id number] PhD Maria Luisa LambPerformed By: #### [id number] #### [facility] [address] [place], [place] [address]MBD Early Abon 36-13-1981ZVI early diffuse IgG Qn (S)71.0 unit/mLHigh0.0-8.9[facility] HospitalComment on above:Result Comment: Hepatitis A, Hepatitis C and HIV antibodies may cross-react with this assay. Negative < 9.0 Equivocal 9.0 - 10.9 Positive >10.9 Performed at: [facility] [address] [id number] PhD Maria Luisa Booformed By: #### [id number] #### [facility] [address] [place], [place] [address]TPWsh 48-67-5817BJO [Mass/Vol]0.4 mg/dLNormal<=1.9[facility] HospitalComment on above:Performed By: #### [id number] #### [facility] [address] [place] [address]WCDI CRPon 68-96-2120MIKD C REACTIVE PROTEIN:MCNC:PT:SER/PLAS:QN:0.4 mg/dLNINF - 1.9 mg/dLNOCO HealthcareOriginal Ordering Provider: KEN SCHUMACHER HealthcareSed Rate Automatedon 37-73-1603AOQ (Bld) [Velocity]9 mm/hNormal0-34[facility] HospitalComment on above:Performed By: #### [id number] #### [facility] [address] [place] [address]Ugxjgwclkc - Microbiology and Antimicrobial susceptibilityon 06-22-2024S. pyogenes Ag Ql (Throat)NegativeNegative, None DetectedNOCO HealthcareNo Panel Informationon 19-50-7040YOHR HealthcareMM TOMOSYNTHESIS SCREENING BIon 47-22-4801[address] [address] Mammography Report Signed Patient: HAYDER RIZZO MR#: [id number] : 1980 Acct:[id number] Age/Sex: 44 / F ADM Date: 02/15/24 Loc: MAMMO Attending Dr: Catracho Lewis D.O. Ordering Physician: Catracho Lewis D.O. Results: Date of Service: 02/15/24 Follow Up: Procedure(s): MM tomosynthesis screening BI Accession Number(s): [id number] cc: CAJUDINDIA ; Catracho Lewis D.O. Patient Name: HAYDER RIZZO MR#: [id number] : 1980 Exam Date: 02/15/2024 Ordering Doctor: DR Catracho Lewis . RADIOLOGY REPORT PROCEDURE: MM TOMOSYNTHESIS SCREENING BI COMPARISON: MM TOMOSYNTHESIS SCREENING BI, 12/30/2022. MG MAMM SCREEN 3D ELDER CAD, 08/26/2021. INDICATIONS: Screening Calculator Name NCI Breast Cancer Risk Assessment Tool 5 Year Breast Cancer Risk 0.70% Lifetime Breast Cancer Risk 8.70% Personal Breast Cancer No Personal Ovarian Cancer No Treatments None Family Cancers Aunt-maternal with uterine cancer at age 60; Cousin-maternal with brain cancer at age 3; Grandfather-paternal with kidney cancer at age 68. LOCATION: [facility] BREAST COMPOSITION: The breasts are heterogeneously dense,which may obscure small masses. FINDINGS: DIAGNOSTIC CATEGORY 2--BENIGN FINDING. NO CHANGE FROM COMPARISON. Scattered benign-appearing calcifications are present. Scattered benign-appearing lymph nodes are present. No significant change has occurred. RIGHT BREAST: No significant suspicious finding. LEFT BREAST: No significant suspicious finding. RECOMMENDATIONS: ROUTINE MAMMOGRAM AND CLINICAL EVALUATION IN 12 MONTHS. PLEASE NOTE: A NORMAL MAMMOGRAM DOES NOT EXCLUDE THE POSSIBILITY OF BREAST CANCER. A CLINICALLY SUSPICIOUS PALPABLE LUMP SHOULD BE BIOPSIED. Dictated by: Jhon Murillo MD on 02/15/2024 at 13:10 Approved by: Jhon Murillo MD on 02/15/2024 at 13:12 Dictated By: Jhon Murillo M.D. Signed By: 02/15/24 1313 DD/ 1312 TD/TT: Licensing Worker:TBHRadiology, RadiologistMD - 02/15/2024 [place] [address] Mammography Report Signed Patient: HAYDER RIZZO MR#: [id number] : 1980 Acct:[id number] Age/Sex: 44 / F ADM Date: 02/15/24 Loc: MAMMO Attending Dr: Catracho Lewis D.O. Ordering Physician: Catracho Lewis D.O. Results: Date of Service: 02/15/24 Follow Up: Procedure(s): MM tomosynthesis screening BI Accession Number(s): [id number] cc: SHANON PENALOZA ; Catracho Leiws D.O. Patient Name: HAYDER RIZZO MR#: [id number] : 1980 Exam Date: 02/15/2024 Ordering Doctor: DR Catracho Lewis . RADIOLOGY REPORT PROCEDURE: MM TOMOSYNTHESIS SCREENING BI COMPARISON: MM TOMOSYNTHESIS SCREENING BI, 12/30/2022. MG MAMM SCREEN 3D ELDER CAD, 08/26/2021. INDICATIONS: Screening Calculator Name NCI Breast Cancer Risk Assessment Tool 5 Year Breast Cancer Risk 0.70% Lifetime Breast Cancer Risk 8.70% Personal Breast Cancer No Personal Ovarian Cancer No Treatments None Family Cancers Aunt-maternal with uterine cancer at age 60; Cousin-maternal with brain cancer at age 3; Grandfather-paternal with kidney cancer at age 68. LOCATION: [facility] BREAST COMPOSITION: The breasts are heterogeneously dense,which may obscure small masses. FINDINGS: DIAGNOSTIC CATEGORY 2--BENIGN FINDING. NO CHANGE FROM COMPARISON. Scattered benign-appearing calcifications are present. Scattered benign-appearing lymph nodes are present. No significant change has occurred. RIGHT BREAST: No significant suspicious finding. LEFT BREAST: No significant suspicious finding. RECOMMENDATIONS: ROUTINE MAMMOGRAM AND CLINICAL EVALUATION IN 12 MONTHS. PLEASE NOTE: A NORMAL MAMMOGRAM DOES NOT EXCLUDE THE POSSIBILITY OF BREAST CANCER. A CLINICALLY SUSPICIOUS PALPABLE LUMP SHOULD BE BIOPSIED. Dictated by: Jhon Murillo MD on 02/15/2024 at 13:10 Approved by: Jhon Murillo MD on 02/15/2024 at 13:12 Dictated By: Jhon Murillo M.D. Signed By: 02/15/24 1313 DD/ 1312 TD/TT: Licensing Worker: [facility] HospitalRadiology Study observation (narrative)[facility] TOMOSYNTHESIS SCREENING BIOrdered By: Radiologist Radiology on 83-01-6215[employer] Work Phone: MRI HEAD/BRAIN WO/W CONTRon 95-54-5131Jruoyojsb, Radiologist, - 09/22/2023 [place] [id number] Magnetic Resonance Report Signed Patient: HAYDER RIZZO MR#: [id number] : 1980 Acct:[id number] Age/Sex: 43 / F ADM Date: 09/15/23 Loc: MRI Attending Dr: AUSTEN ROMERO Ordering Physician: AUSTEN ROMERO Date of Service: 09/15/23 Procedure(s): MR head/brain wo/w con Accession Number(s): [id number] cc: SHANON PENALOZA ; AUSTEN ROMERO [place] [id number] Patient Name: HAYDER RIZZO MRN: [id number] date: 1980 Sex: F Assigned Patient Location: MRI Current Patient Location: MRI Accession/Order Number: [id number] Exam Date: 09/15/2023 12:45 Report Date: 09/15/2023 16:46 At the request of: AUSTEN ROMERO Procedure: MR head/brain wo/w con MR head/brain wo/w con, 09/15/2023 12:45 PM EST INDICATION: disturbance of skin sensation R20.9 chronic memory loss, weakness COMPARISON: There is no appropriate prior study for comparison. TECHNIQUE: Multiplanar, multisequential MRI images of brain were obtained without and with injection of contrast. FINDINGS: The cerebral sulci as well as ventricular system are enlarged consistent with mild ex vacuo cerebral volume loss. There is no restricted diffusion. There is no intracranial mass, mass effect, midline shift, intra or extra-axial fluid collection or large hemorrhage. No abnormal enhancing lesion is noted. Normal flow-void in the intracranial vessels is noted. Mild mucosal thickening within the left maxillary sinus is noted. The visualized portions of orbits, mastoid air cells as well as the remainder of paranasal sinuses are unremarkable. MR/MR head/brain wo/w con IMPRESSION: No acute intracranial process is noted. Mild cerebral volume loss for age. This finding is nonspecific. However, consider malnutrition versus immunosuppression such as HIV. Electronically authenticated by: MARK ETIENNE Date: 09/15/2023 16:46 Dictated By: Mark Etienne M.D. Signed By: 09/15/231647 DD/ 45 TD/TT: Licensing Worker: [facility], Radiologist, MD - 09/15/2023 [place] [address] Magnetic Resonance Report Signed Patient: HAYDER RIZZO MR#: [id number] : 1980 Acct:[id number] Age/Sex: 43 / F ADM Date: 09/15/23 Loc: MRI Attending Dr: AUSTEN ROMERO Ordering Physician: AUSTEN ROMERO Date of Service: 09/15/23 Procedure(s): MR head/brain wo/w con Accession Number(s): [id number] cc: SHANON PENALOZA ; AUSTEN ROMERO [place] [address] Patient Name: HAYDER RIZZO MRN: [facility]:[id number] date: 1980 Sex: F Assigned Patient Location: MRI Current Patient Location: MRI Accession/Order Number: [id number] Exam Date: 09/15/2023 12:45 Report Date: 09/15/2023 16:46 At the request of: AUSTEN ROMERO Procedure: MR head/brain wo/w con MR head/brain wo/w con, 09/15/2023 12:45 PM EST INDICATION: disturbance of skin sensation R20.9 chronic memory loss, weakness COMPARISON: There is no appropriate prior study for comparison. TECHNIQUE: Multiplanar, multisequential MRI images of brain were obtained without and with injection of contrast. FINDINGS: The cerebral sulci as well as ventricular system are enlarged consistent with mild ex vacuo cerebral volume loss. There is no restricted diffusion. There is no intracranial mass, mass effect, midline shift, intra or extra-axial fluid collection or large hemorrhage. No abnormal enhancing lesion is noted. Normal flow-void in the intracranial vessels is noted. Mild mucosal thickening within the left maxillary sinus is noted. The visualized portions of orbits, mastoid air cells as well as the remainder of paranasal sinuses are unremarkable. MR/MR head/brain wo/w con IMPRESSION: No acute intracranial process is noted. Mild cerebral volume loss for age. This finding is nonspecific. However, consider malnutrition versus immunosuppression such as HIV. Electronically authenticated by: MARK ETIENNE Date: 09/15/2023 16:46 Dictated By: Mark Etienne M.D. Signed By: 09/15/231647 DD/ 45 TD/TT: Licensing Worker: [facility] [place] Informationon 09-62[place], [place] [address] Magnetic Resonance Report Signed Patient: HAYDER RIZZO MR#: [id number] : 1980 Acct:[id number] Age/Sex: 43 / F ADM Date: 09/15/23 Loc: MRI Attending Dr: AUSTEN ROMERO Ordering Physician: AUSTEN ROMERO Date of Service: 09/15/23 Procedure(s): MR head/brain wo/w con Accession Number(s): [id number] cc: SHANON PENALOZA ; AUSTEN ROMERO [place] [address] Patient Name: HAYDER RIZZO MRN: [facility]:[id number] date: 1980 Sex: F Assigned Patient Location: MRI Current Patient Location: MRI Accession/Order Number: [id number] Exam Date: 09/15/2023 12:45 Report Date: 09/15/2023 16:46 At the request of: AUSTEN ROMERO Procedure: MR head/brain wo/w con MR head/brain wo/w con, 09/15/2023 12:45 PM EST INDICATION: disturbance of skin sensation R20.9 chronic memory loss, weakness COMPARISON: There is no appropriate prior study for comparison. TECHNIQUE: Multiplanar, multisequential MRI images of brain were obtained without and with injection of contrast. FINDINGS: The cerebral sulci as well as ventricular system are enlarged consistent with mild ex vacuo cerebral volume loss. There is no restricted diffusion. There is no intracranial mass, mass effect, midline shift, intra or extra-axial fluid collection or large hemorrhage. No abnormal enhancing lesion is noted. Normal flow-void in the intracranial vessels is noted. Mild mucosal thickening within the left maxillary sinus is noted. The visualized portions of orbits, mastoid air cells as well as the remainder of paranasal sinuses are unremarkable. MR/MR head/brain wo/w con IMPRESSION: No acute intracranial process is noted. Mild cerebral volume loss for age. This finding is nonspecific. However, consider malnutrition versus immunosuppression such as HIV. Electronically authenticated by: MARK ETIENNE Date: 09/15/2023 16:46 Dictated By: Mark Etienne M.D. Signed By: 09/15/231647 DD/ 45 TD/TT: Licensing Worker:TBHRadiology Study observation (narrative)[facility] HealthcareNo Panel InformationOrdered By: Radiologist Radiology on 09-15-2023 [facility] Healthcare Work Phone: cardiac Stress Teston 06-58-2561[facility] Stress Test [address], [address] [place] [address] Exercise Stress Test Patient Name: HAYDER Ordering Physician: [id number] Stanislaw RIZZO Study Date: 2023 Reading Physician: [id number] Juan Menchaca MD, [facility] MRN/PID: [id number] Supervising [id number] Stanislaw Renny DO Physician: Accession/Order#: [id number] Referring Physician: STANISLAW LAWSON Date of : 1980 PCP: Shanon Penaloza Gender: F Fellow: Height: 152.40 cm Nurse: Kirstie Russ RN Weight: 88.45 kg Digital Sales Executive: BREANNA BSA: 1.85 m2 Technologist: BMI: 38.08 kg/m2 Additional Staff: Age: 43 years cc report to: Patient Location: cc report to: [id number] Stan[address]law [address] Study Type: Cardiac Stress Test Diagnosis/ICD: R07.9-Chest pain, unspecified Indication: Chest Pain Procedure/CPT: Stress Test Interpretation-14892; Stress Test Supervision-97063 Falls Risk: Low: Patient has low risk for sustaining a fall; environmental safety interventions in place. Study Details: Correct procedure and correct patient verified verbally. Patient Performance: The peak heart rate achieved was 179 bpm, which was 101 % of the age predictedtarget heart rate of 177 bpm. The resting blood pressure was 116/78 mmHg with a heart rate of 96 bpm. The standing blood pressure was 114/76 mmHg with a heart rate of 96 bpm. The patient's functionalcapacity was average. The patient developed fatigue during the stress exam. The symptoms resolved rest. The blood pressure response was normal. The test was terminated due to: fatigue. Baseline ECG: Resting ECG showed normal sinus rhythm. Stress Stage Data: + +---+------+-------+ HR Sys BP Pablo BP + +---+------+-------+ Baseline Resting 96 116 78 + +---+------+-------+ Baseline Standing 96 114 76 + +---+------+-------+ Stage I 148 128 74 + +---+------+-------+ Stage II 168 138 72 + +---+------+-------+ Stage III 176 146 70 + +---+------+-------+ Recovery ECG: The heart rate recovery was normal. + +---+------+-------+ HR Sys BP Pablo BP + +---+------+-------+ Recovery I 179 146 70 + +---+------+-------+ Recovery II 162 142 68 + +---+------+-------+ Recovery III 129 128 76 + +---+------+-------+ Recovery IV 125 117 74 + +---+------+-------+ Recovery V 118 + +---+------+-------+ Summary: 1. 1_normal graded exercise tolerance test [...] favorable. 2. Adequate level of stress achieved. 20643 Juan [facility]chaca MD, [facility] Electronically signed on 2023 at 4:04:27 PM Final [facility] 250 DO Work Phone: Office Visit (Cardiology)on 47-54-5953Pzffwr-up visit Diagnoses/Problems Assessed Chest pain (786.50) (R07.9) GERD (gastroesophageal reflux disease) (530.81) (K21.9) Vaping nicotine dependence, tobacco product (305.1) (F17.290) Former smoker (V15.82) (Z87.891) Class 2 obesity with body mass index (BMI) of 38.0 to 38.9 in adult (278.00,V85.38) (E66.9,Z68.38) Lipid screening (V77.91) (Z13.220) 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) Orders Chest pain Cardiac Stress Test; Status:Hold For - Scheduling,Retrospective Authorization; Requested for:27Jan2023; CRP, High Sensitivity; Status:Active - Retrospective Authorization; Requested for:34Hcl4701; IO EKG Electrocardiogram- 12 Lead; Status:Complete; Done: 85Nuu2378 Class 2 obesity with body mass index (BMI) of 38.0 to 38.9 in adult Healthy Weight Tips; Status:Complete - Retrospective Authorization; Done: 84Unp5609 Some eating tips that can help you lose weight.; Status:Complete - Retrospective Authorization; Done: 14Oje7572 Lipid screening Lipid Panel; Status:Active - Retrospective Authorization; Requested for:27Jan2023; SocHx: Former smoker Tobacco Use Screening; Status:Complete; Done: 69Ccv1675 SocHx: Vaping nicotine dependence, tobacco product You need to quit smoking.; Status:Complete - Retrospective Authorization; Done: 05Fcw3986 You need to stop smoking. Though it is not easy, more than half of all adult smokers have quit. We encourage you to write down all the reasons you should quit smoking and set a quit date for yourself. Ask us how we can help. You may also call 4-528-ZNHFNOW for free resources and assistance.; Status:Complete - Retrospective Authorization; Done: 79Qao2499 Patient Instructions Please bring all medicines, vitamins, [...] Follow-up as needed only Chief Complaint HAYDER RIZZO is being seen for a consultation for intermittent chest pain. 42-year-old female seen in cardiology consultation at the request of Dr. Anderson for further evaluation in regards to chest discomfort. Approximately within the last 2 weeks he sustained 1 episode of severe anterior and retrosternal chest discomfort that was excruciating in nature, went to [place] ER, ruled out for acute coronary syndrome and was discharged home. Details of the [place] emergency room evaluation are unavailable. She apparently [...] Former smoker (V15.82) (Z87.891) (more content not included)...NormalUH TouchworksTobacco Screening.on 01-27-2023 Tobacco use status CPHSb) NoMP-[facility] 250 DO Work Phone: Tobacco Screening.YesMP-[facility]-[place] 250 DO Work Phone: XR CHEST 2 Von 22-74-8520UE CHEST 2 VEXAMINATION: XR CHEST 2 V HISTORY: Chronic sinusitis COMPARISON: No relevant comparison available. FINDINGS: LUNGS: No significant pulmonary parenchymal abnormalities. VASCULATURE: No increased pulmonary vasculature. PLEURA: No pneumothorax, effusion, or pleural thickening. CARDIAC: No cardiomegaly or cardiac silhouette abnormality. MEDIASTINUM: No visible mass or adenopathy. BONES: No fracture or visible bone lesion. OTHER: Negative. IMPRESSION: 1. Normal chest. Electronically authenticated by: EM PRINCE Date: 2022-03-06 08:[address] [place] [address] BREAST RIGHT LIMITEDon 05-64-0389NL BREAST RIGHT LIMITED Patient: HAYDER RIZZO Exam Date: 09/02/2021 : 1980 Gender:F Ordering : DR CATRACHO LEWIS . Admission #: [id number] Family : Order #: [id number] CLICK HERE TO VIEW EXAM RADIOLOGY REPORT [...] by: Jhon Murillo MD on 09/02/2021 at 13:51[facility] HospitalMG MAMM SCREEN 3D ELDER CADon 44-53-3597DA MAMM SCREEN 3D ELDER CADPatient: HAYDER RIZZO Exam Date: 08/26/2021 : 1980 Gender:F Ordering : DR CATRACHO LEWIS . Admission #: [id number] Family : Order #: [id number] CLICK HERE TO VIEW EXAM RADIOLOGY REPORT [...] kidney cancer at age 68. LOCATION: [facility] BREAST COMPOSITION: Heterogeneously dense,which may obscure small [...] LUMP SHOULD BE BIOPSIED. Dictated by: Em Prince M.D. on 08/26/2021 at 13:57 Approved by: Em Prince M.D. on 08/26/2021 at 14:01[facility] ACOG PANEL 2: 30 to 65on 08-02-2021..NormalFisher-Titus [facility] Comment on above:Result Comment: Performed at: WBPerformed By: #### [id number] #### [facility] [address] [place] [address] Dr. José Luis GouldAge Gdln ACOG Gexujil43-47FtwqneRtvKettering Health PrebleComment on above:Performed By: #### [id number] #### [facility] [address] [place] [address] Dr. José Luis GouldDIAGNOSIS:CommentOhioHealth Mansfield HospitalComment on above: Result Comment: NEGATIVE FOR INTRAEPITHELIAL LESION OR MALIGNANCY. THIS SPECIMEN WAS RESCREENED PART OF OUR AIR CONDITIONING TECHNICIAN PROGRAM. Performed at: WBPerformed By: #### [id number] #### [facility] [address] [place] [address] Dr. José Luis GouldHPV AptimaNegativeNormalNegativeFisher-Titus Medical CenterComment on above:Result Comment: This nucleic acid amplification test detects fourteen high-risk HPV types (16,18,31,33,35,39,45,51,52,56,58,59,66,68) without differentiation. Performed at: =GPerformed By: #### [id number] #### [facility] [address] [place] [address] Dr. José Luis GouldMethodology:CommentMemorial Health System [facility] on above: Result Comment: This liquid based ThinPrep(R) pap test was screened with the use of an image guided system. Performed at: WBPerformed By: #### [id number] #### [facility] [address] [place] [address] Dr. José Luis GouldNote:CommentMemorial Health System [facility]etta [facility] Hospital on above:Result Comment: The Pap smear is a screening test designed to aid in the detection of premalignant and malignant conditions of the uterine cervix. It is not a diagnostic procedure and should not be used as the sole means of detecting cervical cancer. Both false-positive and false-negative reports do occur. . Performed at: WBPerformed By: #### [id number] #### [facility] [address] [place] [address] Dr. Yilan ChangPerformed by:CommentMemorial Health System [facility]etta [facility] Hospital on above: Result Comment: Alesia Crouch, Creative Strategist (ASCP) Performed at: WBPerformed By: #### [id number] #### [facility] [address] [place] [address] Dr. José Luis GouldQC reviewed by:[facility] on above:Result Comment: Milagro Merino, Creative Strategist (ASCP) Performed at: WBPerformed By: #### [id number] #### [facility] [address] [place] [address] [address] José Luis GouldSpecimen adequacy:[facility] on above:Result Comment: Satisfactory for evaluation. Endocervical and/or squamous metaplastic cells (endocervical component) are present. Performed at: WBPerformed By: #### [id number] #### [facility] [address] [place] [address] Dr. José Luis GouldRadiologyon 53-17-9523BP Shoulder [facility] [place] [facility] Work Phone: History and Physical Chris 61-87-9060Wxfpjtn and Physical PATALDDSheridan Memorial Hospital - SheridanOPERATIVE REPORTon 05-11-2017 OPERATIVE REPORTName: DAMARIS RIZZOROMÁNMR: [id number]: Cade Bae M.D.DATE OF SURGERY:ADDENDUM: The previous note I had dictated for Hayder Holmanusen, medical record#[id number], job number was [id number], was dictated an error. Please dictate thatnote. A new dictation note will be dictated shortly. KRISTOPHER Mercado/Isaura/[id number]: 05/11/2017 21:03:28 E/S: Cade Bae MD/ 1426Signature on File [facility] HAYDER [id number] [place] [address] [id number]: Cade Bae MDOPERATIVE REPORTNormalSRush County Memorial HospitalOPERATIVE REPORTName: HAYDER RIZZOMR: [id number]: Cade Bae M.D.DATE OF SURGERY: 05/11/2017PREOP DIAGNOSIS: Senile nuclear sclerotic cataract, right eye.POSTOP DIAGNOSIS: Senile nuclear sclerotic cataract, right eye.OPERATION: Cataract extraction with intraocular lens implants.ANESTHESIA: General anesthesia.1ST TELEVISION SPECIALIST:COMPLICATIONS: None.BLOOD LOSS: None.OPERATIVE REPORT: The patient was positively identified. Risks, benefits, andalternatives of surgery were discussed with the patient and family, whoelected to proceed. Topical medications were used for dilation and ocularsurface anesthesia.The patient was brought to the operating room [...] constructed temporally.Dilation was poor, so an iris racking machine operator was used to open the pupil [...] Lc AcrySof IQ SN60WF 22.0 diopters.The iris racking machine operator ring was removed. Viscoelastic was removed with irrigationaspiration. A 9-0 Vicryl suture placed in the clear corneal wound. Anteriorchamber was reformed with BSS on a cannula. Intra-ocular Vigamox solution wasinstilled into the anterior chamber. Lid speculum removed. Area cleaned and [facility] HAYDER [id number] [place] [address] [id number]: Cade Bae MDOPERATIVE REPORTantibiotic anti-inflammatory drops placed in the eye. The patient toleratedthe procedure well without complications and sent to the recovery room withoutincident. Follow up 1 day with . .POSTOP MEDICATIONS: Antibiotic, steroid, and NSAID ophthalmic combinationdrop. KRISTOPHER Mercado/Isaura/[id number]: 05/11/2017 20:26:44 E/S: Cade Bae MD/ 1426Signature on File _[facility] HAYDER [id number] [place] [address] [id number] 80DICTATING DR: Cade Bae MDOPERATIVE REPORTNormalSRush County Memorial HospitalOPERATIVE REPORTName: HAYDER RIZZO: [id number]: Cade Bae M.D.DATE OF SURGERY: 05/11/2017(Please note that this is the correct dictation for her, whereas the previousone was incorrect).PREOP DIAGNOSIS: Alternating esotropia.POSTOP DIAGNOSIS: Alternating esotropia.PROCEDURE: Bilateral medial rectusrecession, 3.5 mm.ANESTHESIA: General anesthesia.1ST TELEVISION SPECIALIST:COMPLICATIONS: No complications.ESTIMATED BLOOD LOSS: Less than 1 mL.SURGICAL INDICATIONS: Risks, benefits, and alternatives of surgery werediscussed with the patient and family who elected to proceed.OPERATIVE REPORT: The patient was positively identified and brought to theoperating room. General anesthesia was initiated. The patient was preppedand draped in the usual sterile ophthalmic fashion. Attention was turned tothe left eye.A forniceal incision in the conjunctiva was made medially withWestcott scissors. The medial rectus muscle was identified and isolated on amuscle hook. Overlying conjunctiva and Tenon's tissue were draped aside. Adouble-armed 6-0 Vicryl suture was pre-placed in the edge of the muscle, 0.5mm from theinsertion. The muscle was disinserted from the globe withWestcott scissors. Cautery was used for hemostasis. Using the pre-placedsuture, the edge of the muscle was reinserted into the globe, 3.5 mm posteriorto the original insertion as measured with calipers. The position andsecurity of the muscle were inspected and found to be satisfactory. Overlyingconjunctiva was closed with several 6-0 Vicrylsutures. Attention was turnedto the right eye, where the identical procedure was performed on the medialrectus muscle. Antibiotic steroid ointment was placed in each eye and thepatient was awakened and sent to the recovery area in good condition. Followup in 1 week. [facility] [id number] [place], [place] [address] [id number]: Cade Bae MDOPERATIVE REPORTPOSTOP MEDICATIONS: Antibiotic steroid ointment at night for 1 week. KRISTOPHER Mercado/Isaura/[id number]: 05/11/2017 21:49:29 E/S: Cade Bae MD08/06/17 1426Signature on File [facility] DAMARIS [id number] [place], [place] [id number] 80DICTATING DR: Cade Bae MDOPERATIVE REPORTNormalSaint Atrium Health Floyd Cherokee Medical CenterPREG URINE QUALon 30-60-1946LI HCG QUALNegativeNormalSRush County Memorial HospitalComment on above:Order Comment: Comments To Phleb[facility] MAINPerformed By: #### LUPREG ####[facility] [address] [place] [address] Vital Signs Date TimeVital SignValuePerforming SjcsfapzjMexwgccz04-28-5033 11:Body fgibgudrohs88.81 [degF]Gordo Patton DO Work Phone: [place] [facility] CenterNbiwcijahd02-73-4356 11:Diastolic blood arzuwkeg73 mm[Hg]Gordo Patton DO Work Phone: [place] [facility] CenterRzlnqbanon57-81-3375 11:Heart rate92 /min Gordo Patton DO Work Phone: noWashington [facility] Medical CenterNrddopbidj61-61-7258 11:29-4730IvG6% (BldA) [Mass fraction]97 %Gordo Patton DO Work Phone: NOWashington [facility] CenterQfrbegctxt14-23-6322 11:29-0400Systolic blood snvjauft694 mm[Hg]Gordo Patton DO Work Phone: NOW[facility] CenterBiupaoimpj63-21-9085 13:08-0500Body zzewpw441.4 cmSpasquale Ring 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 Work Phone: NOW[facility] CenterPbgvwumvfd08-21-7201 13:08-0500Body mass index (BMI) [Ratio]38.71 kg/q5Oxlmkerenetta Ring 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 Work Phone: [facility] CenterJrvzvqmbxu48-98-1590 13:08-0500Body yfjtim18.9 kg Anamaria Ring 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 Work Phone: [facility] CenterSuazalbcbp48-96-0544 13:08-0500Diastolic blood cywegiif22 mm[Hg]Anamaria Ring 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 Work Phone: [facility] CenterYtpxaasmpk76-41-6511 13:08-0500Heart rate78 /min Anamaria Ring 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 Work Phone: [facility] CenterVahzwpobwa69-41-8795 13:08-0500Respiratory rate17 /minSri Dixon 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 Work Phone: [facility] CenterHuindgqcul31-21-4223 13:08-4769TtB1% (BldA) [Mass fraction]99 %Anamaria Ring 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 Work Phone: [facility] CenterOodzhedapy70-41-4131 13:08-0500Systolic blood fpaxtzjr251 mm[Hg]Anamaria Ring 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 Work Phone: [facility] CenterCwlozpchlr92-34-1972 13:04-0500Body twnuhg057.4 cmFelicia Windnagel 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 Work Phone: [facility] CenterZpgnqdjvqv28-82-4383 13:04-0500Body mass index (BMI) [Ratio]38.51 kg/e7Iztzdyv Windnagel 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 Work Phone: [facility] CenterAbwbjndcri79-79-0546 13:04-0500Body ylhdlx35.45 kgFelicia Windnagel 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 Work Phone: [facility] HospitalLtcovrttum51-08-5888 13:04-0500Diastolic blood rrpvwcas86 mm[Hg]Sarabjit Windnagel 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 Work Phone: [facility] HospitalPyfeoaxahp46-78-0286 13:04-0500Systolic blood ldijgndr896 mm[Hg]Sarabjit Windnagel 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 Work Phone: [facility] HospitalUkhnoamiqu95-04-6877 12:32-0500Body rzqaki931.4 cmFelocoia Dylonnagel 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 Work Phone: [facility] HospitalIawjwjiovr87-22-6023 12:32-0500Body mass index (BMI) [Ratio]37.58 kg/i1Tqbfjvi Windnagel 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 Work Phone: [facility] HospitalZvrvbydump48-78-0066 12:32-0500Body isflhy98.27 kgFelocoia Windnagel 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 Work Phone: [facility] HospitalOhxvsnocai66-87-9558 12:32-0500Diastolic blood bdhvgern49 mm[Hg]Sarabjit Windnagel 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 Work Phone: [facility] CenterCnelbxrnbp12-78-0748 12:32-0500Systolic blood jymfoleu866 mm[Hg]Sarabjit Windnagel 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 Work Phone: [facility] CenterChczyqvsll64-03-0015 15:34-0500Body gyyxjg661.4 cmSpasquale Ring 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 Work Phone: [facility] CenterKamfryznkk76-27-6662 15:34-0500Body mass index (BMI) [Ratio]37.6 kg/k0TasaslAnamaria Ring 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 Work Phone: [facility] CenterGgealifzlb66-17-7433 15:34-0500Body temperature 98.71 [degF]Anamaria Ring 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 Work Phone: [facility] CenterStdqqyuzym87-42-9779 15:34-0500Body wdicam20.32 kgAnamaria Ring 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 Work Phone: [facility] CenterUrkkbocxis49-26-3940 15:34-0500Diastolic blood cghqinwq99 mm[Hg]Anamaria Ring 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 Work Phone: [facility] HospitalNwnyuqcfsr36-86-0167 15:34-0500Heart rate94 /min Anamaria Ring 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 Work Phone: [facility] HospitalGbwpzebtgo78-26-3252 15:34-0500Respiratory rate18 /minSpasquale Kimblevely 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 Work Phone: [facility] HospitalBsgvnrphma28-03-9440 15:34-9466ZgY0% (BldA) [Mass fraction]99 %Anamaria Ring 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 Work Phone: [facility] HospitalUvpnwmdlyo16-70-6188 15:34-0500Systolic blood mm[Hg]Anamaria Ring 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 Work Phone: [facility] [place] [facility] HospitalQowddtoofj25-55-3342 11:30-0400Body gpihzz003.4 cmAusten Romero MD Work Phone: [facility] HospitalHbtefvtrzw06-49-3970 11:30-0400Body mass index (BMI) [Ratio]37.69 kg/k8NzzuvcaAusten Romero MD Work Phone: [place] [address]Nuzuyxjjjr17-02-6374 11:30-0400Body oyyfzm37.54 kgAusten Romero MD Work Phone: [facility] HospitalCldqrhuwnl19-64-2374 00:00-0506196 1Rdonovan Sheltona Work Phone: [phone]) [phone]-ZgajtSt. John's [facility]-[place] 250 DO Work Phone: Comment on above:GGQQP03-38-6035 08:50-0400Diastolic blood lnrfwkbo55 mm[Hg]Shanon Sarita Ca Work Phone: [phone]-Fdgyz [facility] 250 DO Work Phone: 1(997) 453-443707-12-2023 08:50-0400Systolic blood mm[Hg] Shanon Stein [place] Work Phone: [phone]-GasryCuyuna [facility] 250 DO Work Phone: 1(570) 642-973607-12-2023 08:49-0400Diastolic blood ofnlmljm75 mm[Hg] Rugen Sarita [place] Work Phone: [phone]-Jxmkn [facility] 250 DO Work Phone: 1(967) 221-430607-12-2023 08:49-0400Systolic blood mdruetne272 mm[Hg] Rugen Sarita Ca Work Phone: [phone]-Vzuyb [facility] 250 DO Work Phone: 1(660) 554-269707-12-2023 08:48-0400Body .4 cmRugen Sarita [place] Work Phone: [phone]-Eurty [facility] 250 DO Work Phone: 1(117) 232-255007-12-2023 08:48-0400Body mass index (BMI) [Ratio] 38.08 kg/i4Oxred Sarita [place] Work Phone: [phone]-Oyrcr [facility] 250 DO Work Phone: 1(300) 849-273307-12-2023 08:48-0400Body surface area Derived from formula1.85 m0Yxgni Sarita Ca Work Phone: mp745-6658DP-Goyka [facility] 250 DO Work Phone: 1(562) 821-497407-12-2023 08:48-0400Body .45 kgRugen M Ca Work Phone: mp139-0349ZW-Thvwt [facility] 250 DO Work Phone: 1(211) [phone] 08:48-0400Heart rate95 /minRugen Sarita Ca Work Phone: [phone]-Mnxou [facility] 250 DO Work Phone: 1(884) 937-943101-10-2022 14:28-0500Body binyet335.4 cmRugen M Ca Work Phone: [phone]-[facility] Work Phone: 1(890) [phone] 14:28-0500Body mass index (BMI) [Ratio] 35.15 kg/q4Aamyy M [place] Work Phone: [phone]-JdktlbMountain View [facility] CentersKn[facility] Work Phone: 1(964) 537-725101-10-2022 14:28-0500Body surface area Derived from formula1.78 w7JjvdtShanon Penaloza Work Phone: mp297-1072PP-[facility] [place] [facility] [place] Work Phone: 1(287) 630-146801-10-2022 14:28-0500Body rcyekm08.65 kgShanon Penaloza Work Phone: [phone]-MxqgwyMer[facility] [place] [facility] [place] Work Phone: Encounters Encounter DateEncounter TypeCare ProviderFacilityStart: 05-08-2025 End: 89-24-1977EfcbioGfwthudlox M Graziani 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 Work Phone: noms [place] NeurologyComment on above:Postconcussion syndrome; ADD (attention deficit disorder) without hyperactivityStart: 04-06-2025 End: 38-80-9597InpwrnSsivgnz W Bauer MD Work Phone: [facility] [place] NeurologyComment on above:Postconcussion syndrome; ADD (attention deficit disorder) without hyperactivityStart: 03-06-2025 End: 13-56-5538JtzfdpTtbglbc C Windnagel 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 Work Phone: noms [place] NeurologyComment on above:Postconcussion syndrome; ADD (attention deficit disorder) without hyperactivityStart: 02-26-2025 End: 83-53-1183NmqmieXzwezwp W Bauer MD Work Phone: n[facility] [place] NeurologyComment on above:Radiculopathy of sacral regionStart: 01-31-2025 End: 28-78-3172UcjugnGeycttu C Windnagel 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 Work Phone: noms SWS NEURComment on above:Postconcussion syndrome; ADD (attention deficit disorder) without hyperactivityStart: 12-31-2024 End: 14-67-8918KhfcauOsuojtg C Windnagel 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 Work Phone: NOMS SWS NEURComment on above:Postconcussion syndrome; ADD (attention deficit disorder) without hyperactivityStart: 11-20-2024 End: 62-39-0877ojbvdotcdzARMUUZVSarahi Calvo AvailableStart: 11-08-2024 End: 11-97-5635QmldbtEztynru C Windnagel 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 Work Phone: [facility] SWS NEURComment on above:Postconcussion syndrome; ADD (attention deficit disorder) without hyperactivityStart: 10-31-2024 End: 54-58-4865hbokdwskpmYVBHKBY G TESMONDNot AvailableStart: 10-31-2024 End: 11-04-6235Qaqdot outpatient visit 25 minutesGordo Patton DO Work Phone: N[facility] SWS UCComment on above:Strain of right shoulder, initial encounter (Primary Dx); Internal impingement of right shoulder; Chronic right shoulder painStart: 10-30-2024 End: 03-18-7276NaeijkUzdjpfk C Windnagel 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 Work Phone: N[facility] SWS NEURComment on above:Postconcussion syndrome; ADD (attention deficit disorder) without hyperactivityStart: 09-01-2024 End: 04-43-0160Qpxlyqpkt Result EncounterSpasquale Ring 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 Work Phone: NOMS External Department UnsolicitedStart: 09-01-2024 End: 73-54-7349Skmxueejj Result Shantell Ring 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 Work Phone: NOM[facility] External Department UnsolicitedStart: 08-31-2024 End: 07-73-7575Fxylou flowsKane Ring 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 Work Phone: NOMS CI FMStart: 08-31-2024 End: 30-57-5491Oihsli Mary Ellen Ring 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 Work Phone: NOM[facility] CI FMStart: 08-31-2024 End: 76-05-8616Ekvlcy outpatient visit 25 minutesShrenetta Ring 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 Work Phone: NOMS CI FMComment on above:Fall, initial encounter (Primary Dx); Arm pain, lateral, right; Pain of right hipStart: 08-31-2024 End: 77-74-1412ruumminkqiVSPRTE M SHIVELYNot AvailableStart: 08-30-2024 End: 53-01-3528Vqeiee flowsheetFelicia C Windnagel 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 Work Phone: NOMS BM NEUROLOGYStart: 08-30-2024 End: 82-59-0786Winqzz flowsheetFelicia C Windnagel 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 Work Phone: NOMS BM NEUROLOGYStart: 08-30-2024 End: 25-91-1134Yexoot outpatient visit 25 minutesFelicia C Windnagel 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 Work Phone: NOMS SWS NEURComment on above:CMV (cytomegalovirus) antibody positive (Primary Dx); Migraine without aura and without status migrainosus, not intractable (CMS/HCC); ADD (attention deficit disorder) without hyperactivityStart: 08-30-2024 End: 24-55-6205oatqtimnbwGFPYSJM C WINDNAGELNot AvailableStart: 08-26-2024 End: 55-48-6819AzlqexKnqfqai C Windnagel 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 Work Phone: N[facility]S SWS NEURComment on above:Postconcussion syndrome; ADD (attention deficit disorder) without hyperactivityStart: 08-16-2024 End: 10-92-4566Ewbfnfk encounter procedureScott Kaple DO Work Phone: [facility] [address] Work Phone: Start: 08-16-2024 End: 65-76-5345hbuomdrhauEjuea A Kaple DO Work Phone: [facility] Work Phone: Start: 07-24-2024 End: 34-53-6565CeddqtTrhpvtg C Windnagel 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 Work Phone: noMS SWS NEURComment on above:Episodic migraine (CMS/HCC) (Primary Dx); Postconcussion syndrome; ADD (attention deficit disorder) without hyperactivityStart: 07-06-2024 End: 27-83-6921Ieinaqcfl Result EncounterFelicia C Windnagel 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 Work Phone: NONC External Department UnsolicitedStart: 07-06-2024 End: 92-54-4187Ftvjyenkf Result EncounterFelicia C Windnagel 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 Work Phone: noms External Department UnsolicitedStart: 07-06-2024 End: 43-68-7270waljamqbzzCpgxlmh W BahaylieFacility:FTMCStart: 06-28-2024 End: 79-33-1369Yyxsty flowsheetFelicia C Windnagel 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 Work Phone: noms BM NEUROLOGYStart: 06-28-2024 End: 67-11-3299Sdxphp flowsheetFelicia C Windnagel 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 Work Phone: noms BM NEUROLOGYStart: 06-28-2024 End: 17-15-4915Toqfca outpatient visit 25 minutesFelicia C Windnagel 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 Work Phone: NOUP SWS NEURComment on above:Polyneuropathy (Primary Dx); Memory loss; Weakness; Disturbance of skin sensation; CMV (cytomegalovirus) antibody positive; Episodic migraine (CMS/HCC)Start: 06-28-2024 End: 04-26-3567zixgjnegsfXFVBNMS C WINDNAGELNot AvailableStart: 06-22-2024 End: 53-35-8411ebjcqmfiyxBGMRTW M SHIVELYNot AvailableStart: 06-22-2024 End: 46-85-8101Bdyzev outpatient visit 25 minutesAnamaria Ring 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 Work Phone: NOMS CI FMComment on above:Acute non-recurrent frontal sinusitis (Primary Dx); Sore throat; Vaginal yeast infection; Radiculopathy of sacral regionStart: 06-22-2024 End: 53-48-3467Dwrsfz Mary Ellen Ring 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 Work Phone: NOMS CI FMStart: 06-22-2024 End: 22-25-3357Mkbono flowsKane Sarita Ring 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 Work Phone: noms CI FMStart: 06-08-2024 End: 00-52-2845BmclloUremffsbsj Sarita Ron 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 Work Phone: NOMS SWS NEURComment on above:Postconcussion syndrome; ADD (attention deficit disorder) without hyperactivityStart: 05-07-2024 End: 00-57-8714MswmbxMrrfaxflpz Sarita Ron 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 Work Phone: noMS SWS NEURComment on above:Postconcussion syndrome; ADD (attention deficit disorder) without hyperactivityStart: 04-23-2024 End: 90-12-6298IalwbhTfrddlj W Bauer MD Work Phone: noMS SWS NEURComment on above:Radiculopathy of sacral regionStart: 04-05-2024 End: 14-33-3555MaumpnEsymmzamuc Sarita Berrioszacraias 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 Work Phone: noms SWS NEURComment on above:Postconcussion syndrome; ADD (attention deficit disorder) without hyperactivityStart: 03-31-2024 End: 63-92-3612Wilfjr Hernando Romero MD Work Phone: noms BM NEUROLOGYStart: 03-31-2024 End: 05-52-6811Njarnacristiano Romero MD Work Phone: noms BM NEUROLOGYStart: 03-31-2024 End: 58-79-4654pazrwlopukRNKGNJO W BAUERNot AvailableStart: 03-31-2024 End: 61-58-6182Wknioc outpatient visit 25 minutesBrecorie Romero MD Work Phone: noMS SWS NEURComment on above:ADD (attention deficit disorder) without hyperactivity; Radiculopathy of sacral regionStart: 02-25-2024 End: 43-45-4370vlsmixcmxrZRVDHAntoine Mcgowan AvailableStart: 02-22-2024 End: 43-40-4459lvabkmijeiYUPBX FAZIONot AvailableStart: 02-15-2024 End: 41-76-8349Tycykvknw Result EncounterCorey Joshua DO Work Phone: noms External Department UnsolicitedStart: 02-15-2024 End: 53-58-6696Jukntorks Result EncounterCorey Joshua DO Work Phone: noms External Department UnsolicitedStart: 12-29-2023 End: 90-16-3818nijzbvhgghTKWFRTO W BAUERNot AvailableStart: 12-14-2023 End: 97-17-5429rjzdetobrcWASKH M HEMMERNot AvailableStart: 09-15-2023 End: 80-15-2208Upkbebyxz Result EncounterAusten Romero MD Work Phone: noms External Department UnsolicitedStart: 09-15-2023 End: 49-80-4172Zzbjrcduk Result EncounterAusten Romero MD Work Phone: noms External Department UnsolicitedStart: 06-07-2023 End: 08-31-7624jfigohgkmjQzmyzmd Buehrer Other [place] [employer] Other Start: 83-80-2690Losfmv outpatient new 45 minutes Roberto Carlos Sosa Vascular SurgeryStart: 71-73-1033Zrsfl Elvia Penaloza Work Phone: [phone]-Bbaju [facility] [place] 250 DO Work Phone: Start: 78-15-1616Xhsybgn encounter procedureShanon Stein Ca Work Phone: [phone]-Xnugo [facility] 600 DO Work Phone: Start: 65-19-9675lfuqxpazjgEtDr. Stanislaw Lawson Facility:[id number]: 09-48-6349Lehwoz consultation new/estab patient 60 minShanon Penaloza Work Phone: [phone]-Rqisf [facility] 250 DO Work Phone: Start: 94-71-5109axetopehstXj. Stanislaw Lawson Facility:[id number]: 03-05-2022 End: 93-43-2299paorukbtufFY RUGEN ALDAFacility:J5Qbgnq: 09-02-2021 End: 39-94-4758ywdfgpdbbtIY CATRACHO FAZIOFacility:V8Edmdb: 08-26-2021 End: 80-33-0966vnqsrobmkkDH CATRACHO FAZIOFacility:K0Ealjm: 07-30-2021 End: 34-75-7812fmqurylgwiWD CATRACHO FAZIOFacility:E0Tlbsx: 73-56-1758Shczqng encounter procedureShanon Stein [place] Work Phone: [phone]-Smpjab [facility] Work Phone: Start: 06-82-4896KkvlebjbtnLjqjwe PierreFacility:[facility] [place] Procedures DateProcedureProcedure DetailPerforming ClinicianStart: 27-12-1200Iytes shoulder complete minimum 2 viewsAnthony Sol Patton DO Work Phone: Start: 09-01-2024 End: 32-06-4396Smljr humerus minimum 2 viewsAnamaria Ring 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 Work Phone: Start: 73-51-8898EMBC CRPFelicia Jerald Abarca 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 Work Phone: start: 87-91-2151Enrapeuox streptococcus group Juancho Ring 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 Work Phone: Start: 48-13-9876ON TOMOSYNTHESIS SCREENING BICorey Joshua DO Work Phone: Start: 39-61-0132RaghxzcltuiXyrpkmr Bauer MD Work Phone: Start: 98-58-7356RQQ HEAD/BRAIN WO/W Olivia Romero MD Work Phone: Start: 16-06-8484Nzvtlwlzhxs observation [Identifier] in Cervix by Cyto Cassidy Romero MD Work Phone: Arthroscopy of shoulderShanon Penaloza Work Phone: Cesarean sectionShanon Stein Ca Work Phone: Dilation and curettageRugen M Ca Work Phone: EsophagogastroduodenoscopyShanon Penaloza Work Phone: Operation on gallbladderRugen Sarita Ca Work Phone: Surgical procedure on eye properShanon Stein [place] Work Phone: Plan of Treatment DateCare ActivityDetailAuthorStart: 10-15-1300Cljbiraxw for malignant neoplasm of cervixNOMS HealthcareStart: 14-25-7764Rgmyzzbsy for malignant neoplasm of cervixPap SmearNOMS HealthcareStart: 06-05-2025 End: 12-97-1556Codpada encounter procedureNOMS BCP OBStart: 04-17-2025 End: 18-54-3913Netbeyb encounter procedureNOMS SVH NEURO 210Start: 03-19-2025 Influenza vaccinationNOMS HealthcareStart: 02-28-2025 End: 14-60-4318Uzyzhir encounter /13/2025 2:00 PM EDT Office Visit [facility] OB [address] [place] [address] Catracho Lewis, DO [address] [place] [address] [facility]S [facility] OBStart: 73-56-5586Dylyufhwc for malignant neoplasm of breastMammogramNOMS HealthcareStart: 11-08-2024 End: 79-18-5762Htiwoei encounter ryqzqydgk67/23/2025 10:20 AM EDT Office Visit [facility] [address] [place] [address] Sarabjit Abarca, 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 [address], [address] [place] [address] NOMS SWS NEURStart: 08-31-2024 End: 21-71-1022PN Hip - right 3 ViewsXR hip right 2 or 3 views Imaging Routine Fall, initial encounter Pain of right hip Expected: 08/31/2024, Expires: 08/31/2025NOMS HealthcareComment on above:Expected: 08/31/2024, Expires: 08/31/2025Start: 08-31-2024 End: 83-85-1343WZ Humerus - right ViewsXR humerus right Imaging Routine Fall, initial encounter Arm pain, lateral, right Expected: 08/31/2024, Expires: 08/31/2025[facility] Work Phone: Comment on above:Expected: 08/31/2024, Expires: 08/31/2025Start: 08-31-2024 End: 48-16-3308Wjldhcb encounter nazlxphmc51/13/2025 1:00 PM EST Office Visit [facility] CI FM [address] [facility] [address] [place] [address] Anamaria Ring NP [address] [facility] [address] [place] [address] ArrivedNOMS CI FMComment on above:ArrivedStart: 08-30-2024 End: 84-11-3711Npycylt encounter procedureNOMS SWS NEURComment on above:Arrived Start: 06-29-2024 End: 31-08-2268Tdswfowbum factor [Units/volume] in Serum or PlasmaRheumatoid factor Lab Routine Polyneuropathy Weakness Disturbance of skin sensation CMV (cytomegalovirus) antibody positive Expected: 06/29/2024 (Approximate), Expires: 06/28/2025[facility] Work Phone: comment on above:Expected: 06/29/2024 (Approximate), Expires: 06/28/2025Start: 06-28-2024 End: 06-28-2025 reactive protein [Mass/volume] in Serum or PlasmaC-reactive protein Lab Routine Weakness Disturbance of skin sensation CMV (cytomegalovirus) antibody positive Expected: 06/28/2024 (Approximate), Expires: 06/28/2025NOMS HealthcareComment on above:Expected: 06/28/2024 (Approximate), Expires: 06/28/2025Start: 06-28-2024 End: 21-77-5640Efagwgdpeuc sedimentation rateSedimentation rate, automated Lab Routine Memory loss Weakness Disturbance of skin sensation CMV (cytomegalovirus) antibody positive Expected: 06/28/2024 (Approximate), Expires: 06/28/2025NOC[facility] HealthcareComment on above:Expected: 06/28/2024 (Approximate), Expires: 06/28/2025Start: 06-28-2024 End: 92-23-3715Ameqnhj encounter procedureNONORTHRIDGE [facility] NEURComment on above:Arrived Start: 06-28-2024 End: 37-64-9455Gwnpgpx encounter hvsvmnjil23/11/2024 10:20 AM EST Office Visit [facility] NEUR [address] [facility] [address] [place] [address] Ausetn Romero MD [address] [facility] [address] [address] [facility] NEURStart: 72-87-6119Wsxduwqih vaccinationInfluenza Vaccine (#1)[facility] HealthcareStart: 37-91-8098XQYBPQ MARY, Provider: [place] HHVI NUCLEAR 01,[id number], Status: Pen, Time: 11:30 AMSTRE MARY, Provider: [place] HHVI NUCLEAR 01,[id number], Status: Pen, Time: 11:[address] [facility] 250 DO Work Phone: Start: 93-01-6376GWJ, Provider: Cade Ramos, Status: Pen, Time: 1:00 PMFUV, Provider: Cade Ramos, Status: Pen, Time: 1:00 PM-[place] [facility] Work Phone: Start: 44-47-1537Torrydcgj for malignant neoplasm of colonNOCO HealthcareMR Shoulder - right WO contrastMR shoulder right wo IV contrast Imaging STAT Chronic right shoulder pain Ordered: 10/31/2024[facility] Healthcare Work Phone: comment on above:Ordered: 10/31/2024Sjogrens syndrome- A extractable nuclear Ab [Units/volume] in SerumTrinity Health System Twin City Medical Centerjogrens syndrome-B extractable nuclear Ab [Units/volume] in Serum [facility] Immunizations Immunization DateImmunizationNotesCare GqmqlumxJmqtwakd82-64-6554wulpruk toxoid, reduced diphtheria toxoid, and acellular pertussis vaccine, adsorbedRugen M Ca Work Phone: NOWashington University Medical CenterJyjvlxsxiv45-63-1590rgflrcgdb, injectable, quadrivalent, preservative freeRugen M Ca Work Phone: [phone]-PbxxlSt. [facility]'s [facility] 250 DO Work Phone: 1(870) [phone]zsju virus vaccine, unspecified formulationAusten Romero MD Work Phone: [facility] Payers DatePayer CategoryPayerPolicy [id number]-[id number] Health [id number] [id number] 2..1.077898.3.57[id number] 2..1.953190.3.579.[id number] 2..1.731814.3.579.2.12345-66-6387Ddihrtd4337501 2..1.980413.3.579.[id number] 2..1.876863.3.57[id number] 2..1.414500.3.579.[id number] 2.16840.1.605437.3.57[id number] 2.0.1.866559.3.579.2.24710-96-6336Gsxnusq3061077 2.16.840.1.730931.3.579.2.598382-25-0138Pzkbmwg4371124 2.0.1.979631.3.579.2.954026-10-2260Ytxcrbc1691081 2.0.1.668524.3.57[id number] 2.840.1.434021.3.579.2.663558-17-3625Rdmxqsc1072658 2.0.1.253301.3.579.2.515799-71-4738Kjhoztj9639383 2.0.1.600067.3.579.[id number] 2..1.205613.3.579.2.964118-50-2882Piafbyt2467525 2.0.1.914519.3.57[id number] 2..1.055553.3.579.2.459418-96-5171Paoydaq2584789 2.840.1.266272.3.579.2.162243-37-6446Iiejlqc0823994 2.0.1.123012.3.579.2.667311-64-0267Ircwouy7605681 2.840.1.720711.3.579.2.7[id number] 2.840.1.947107.3.579.2.119482-14-5594KvhilfvA543757102353-51-9152Vzrvzap [id number] [id number] 2.16.840.1.909449.3.579.2.531 Social History DateTypeDetailFacilityStart: 02-22-2024 End: 27-65-3236Zsvvswq smokerCurrent smoker-[facility] Work Phone: Start: 12-28-2022 End: 14-80-3643Opz Assigned At [place] [employer] Other Start: 77-46-8849Eidsego smoking status NHISSmokes tobacco dailyNOMS HealthcareHistory of tobacco useCigarette SmokerNOMS HealthcareStart: 10-20-8389Oioanii use and exposureUser of smokeless tobaccoNOMS HealthcareStart: 09-08-2023 End: 19-04-8238Badklavbw beverage intakeCurrent drinker of alcohol (finding)NOMS HealthcareStart: 87-76-7843Vhc often do you need to have someone help you when you read instructions, pamphlets, or other written material from your doctor or pharmacy [SILS]NeverNOMS HealthcareWithin the last year, have you been afraid of your partner or ex-partner?NoNOMS HealthcareAre you now , , , , never or living with a partner?MarriedNOMS HealthcareHow often to you have a drink containing alcohol?2-3 time sa weekNOMS HealthcareHow many standard drinks containing alcohol do you have on a typical day?3 or 4NOMS HealthcareHow often do you have 6 or more drinks on 1 occasion? NeverNOMS HealthcareHow hard is it for you to pay for the very basics like food, housing, medical care, and heatingNot very hardNOMS HealthcareDo you feel stress - tense, restless, nervous, or anxious, or unable to sleep at night because yourmind is troubled all the time - these days [OSQ]Only a littleNOMS Healthcare(I/We) worried whether (my/our) food would run out before (I/we) got money to buy more.Never trueNOMS HealthcareStart: 10-72-6287Gtyvpcy Comment Caffeine intake: coffee, sodaNOMS HealthcareStart: 57-25-8332Hcb assigned at birthNot on [facility] Medical CenterTobacco smoking status NHISUnknown if ever smoked [facility] Work Phone: Start: 28-12-5378TgfXwpict (finding)[facility] Medical Centertart: 72-03-6713Php Assigned At [facility] Functional Status HsgdElnstthjpoZnzjpgTynjtnxf94-99-9186Lecng score [AUDIT-C]4 02/22/2024 10:29 PM EDT Mychart, GenericNorth [facility] HospitalEprgwibrcn58-72-7142Ipx often do you have a drink containing alcohol?2-3 times a week 02/22/2024 10:29 PM EDT Mychart, Generic 2-3 times a weekNorth [place] City HospitalXqiobjamkq43-76-9228Gou many standard drinks containing alcohol do you have on a typical day?3 or 4 02/22/2024 10:29 PM EDT Mychart, Generic 3 or 4North [place] HospitalIcbrcznjwu20-50-7346Poa often do you have 6 or more drinks on 1 occasion?Never 02/22/2024 10:29 PM EDT [place], Generic NeverNorth [facility] Clinical Notes 12-28-2020 to 04-09-2025 Note Date & KuklSejjJlyxljoz87-35-2778 Telephone encounter Note* Telephone Encounter - Mariela Ron NP - 04/09/2025 9:05 AM EDT OARRS reviewed. [facility] [place] HospitalVglxnimsnn20-93-7316 Miscellaneous Notes* Telephone Encounter - Mariela Ron NP - 04/09/2025 9:05 AM EDT OARRS reviewed. documented in this encounterNorth Kansas City HospitalUbzogokdbr86-96-3029 History of Present illness Narrative* Kristy Bailey, HUMA - 10/31/2024 11:20 AM EDT HPI: Historian of HPI: patient Hayder Rizzo is a 44 y.o. female who presents today to the Urgent Care with the following complaints and denials due right upper arm pain which has been present for 2 month(s). C/O Denies Symptom Comments [] [x] swelling [] [x] ecchymosis [] [x] erythema [x] [] tingling [x] [] numbness [x] [] Pain radiation To right hand [x] [] Weakness [x] [] Decreased ROM [] [x] Trauma Additional Comments: Ibuprofen is being used for pain relief Pt admits to cold application to the affected area Pt fell 2 months ago and landed on right arm. Had x-rays which showed no break or fracture. States for the past 3 days the right arm has been quite painful. Pain is radiating down to fingers. ROS: A complete system ROS was performed and negative aside from the pertinent positives noted in the HPI and PE. Examination General Examination: General Examination: in no acute distress, well developed, well nourished Head: normocephalic, atraumatic Eyes: sclera non-icteric Neck/Thyroid: no carotid bruit, FROM Skin: no rashes Heart: no murmurs, regular rate and rhythm, S1, S2 normal Lungs: clear to auscultation bilaterally Musculoskeletal: right: Tenderness over the bicipital groove and proximal deltoid. Active abductionlimited to 90 degrees on right due to pain. Opposed Flexion and extendtion intact. Abduction and adduction intact. Jobes sign positive. Vice President Digital Strategist strength intact. Extremities: no clubbing, cyanosis, or edema Peripheral Pulses: 2+ radial, 2+ ulnar. Neurologic: sensory exam intact to UE Psych: alert, oriented, cognitive function intact, cooperative with exam. XR prelim two cystic spots noted at the head of the humerus. Noted on prior film two months ago. Await Final RAD Report HPI, ROS, and PE reviewed and amended by Dr. Gordo Patton as necessary. Written by GONZALO De Jesus 1. Strain of right shoulder, initial encounter (Primary) Dx and tx reviewed. Rest Shoulder as much as possible. Take meds as directed. No NSAIDs while on steroid. MRI ordered. Follow with PCP as directed. 2. Internal impingement of right shoulder Dx reviewed 3. Chronic right shoulder pain Dx reviewed - XR shoulder 2+ views right - MR shoulder right wo IV contrast - methylPREDNISolone (Medrol Dospak) 4 MG tablets; Follow schedule on package instructions Dispense: 21 tablet; Refill: 0 documented in this encounterNorth Kansas City [id number] History of Present illness Narrative* Anamaria Ring, 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 - 08/31/2024 1:00 PM EST Subjective Patient ID: Hayder Rizzo is a 44 y.o. female who presents for a fall. Hayder presents today for a fall this morning on the ice. She fell on her right arm and hip. She isnow having issues with using her rt arm. Fall The accident occurred 3 to 6 hours ago. The fall occurred while standing. She fell from an unknown height. Impact surface: stones. The point of impact was the right hip, right shoulder and right elbow. The pain is present in the right upper arm. The pain is at a severity of 8/10. The pain is severe. The symptoms are aggravated by use of injured limb, pressure on injury, rotation, movement and flexion. Pertinent negatives include no numbness or tingling. She has tried nothing for the symptoms. The treatment provided no relief. Current Outpatient Medications on File Prior to Visit Medication Sig Dispense Refill albuterol HFA (ProAir HFA) 90 mcg/act inhaler Inhale 1 puff every 4 (four) hours if needed for wheezing or shortness of breath. Atogepant (Qulipta) 60 MG tablet Take 60 mg by mouth Daily 90 tablet 2 atorvastatin (Lipitor) 40 MG tablet Take 1 [...] capsule (10 mg) by mouth Daily Do notcrush, chew, or split. 30 capsule 0 diphenhydrAMINE (BENADryl) 25 MG tablet Take 50 mg by mouth as needed at bedtime for allergies. FLUoxetine (PROzac) 10 MG capsule TAKE 1 CAPSULE BY MOUTH EVERY DAY IN THE MORNING 90 capsule 3 meloxicam (Mobic) 7.5 MG tablet Take 1 tablet (7.5 mg) by mouth Daily 30 tablet 11 Multiple Vitamins-Minerals (MULTIVITAMIN WOMEN PO) Naltrexone HCl powder 2 mg Daily 30 g 2 NALTREXONE HCL, PAIN, PO Take 2 mg by mouth Daily OXcarbazepine (Trileptal) 300 MG tablet Take 1 tablet (300 mg) by mouth in the morning and 1 tablet(300 mg) before bedtime. 60 tablet 11 pantoprazole (ProtoNix) 40 MG EC tablet TAKE [...] NEEDED FOR MUSCLE SPASMS 90 tablet 2 Wheat Dextrin (Benefiber) powder as directed Orally [DISCONTINUED] Atogepant (Qulipta) 30 MG tablet Take 30 mg by mouth Daily 30 tablet 2 [DISCONTINUED] dexmethylphenidate XR (Focalin XR) 10 MG 24 hr capsule Take 1 capsule (10 mg) by mouth Daily Do not crush, chew, or split. 30 capsule 0 No current facility-administered medications on file prior to visit. I have reviewed and reconciled the history and medication list with the patient today. Allergies Allergen Reactions Codeine Unknown Cymbalta [Duloxetine Hcl] Other Hydrocodone Unknown Latex Unknown Penicillins Unknown Topamax [Topiramate] Other Social History Tobacco Use Smoking status: Every [...] Status Every Day Review of Systems Musculoskeletal: Rt arm and hip pain Neurological: Negative for tingling and numbness. Objective Physical Exam Vitals reviewed. Constitutional: Appearance: Normal appearance. HENT: Head: Normocephalic. Mouth/Throat: Mouth: Mucous membranes are moist. Pharynx: Oropharynx is clear. Eyes: Conjunctiva/sclera: Conjunctivae normal. Cardiovascular: Rate and Rhythm: Normal rate and regular rhythm. Pulmonary: Effort: Pulmonary effort is normal. Musculoskeletal: General: Tenderness and deformity present. No swelling or signs of injury. Right lower leg: Edema present. Left lower leg: No edema. Comments: Rt hip tenderness and rt humerus tenderness Skin: General: Skin is warm and dry. Neurological: General: No focal deficit present. Mental Status: She is alert and oriented to person, place, and time. Psychiatric: Mood and Affect: Mood normal. Behavior: Behavior normal. Thought Content: Thought content normal. Assessment/Plan Diagnoses and all orders for this visit: Fall, initial encounter - XR humerus right; Future - XR hip right 2 or 3 views; Future - predniSONE (Deltasone) 10 MG tablet; Take 4 tablets (40 mg) by mouth Daily for 4 days, THEN 3 tablets (30 mg) Daily for 4 days, THEN 2 tablets (20 mg) Daily for 4 days, THEN 1 tablet (10 mg) Daily for 4 days. Arm pain, lateral, right - XR humerus right; Future - predniSONE (Deltasone) 10 MG tablet; Take 4 tablets (40 mg) by mouth Daily for 4 days, THEN 3 tablets (30 mg) Daily for 4 days, THEN 2 tablets (20 mg) Daily for 4 days, THEN 1 tablet (10 mg) Daily for 4 days. Await xray results. Take the steroid with with food. Do not take steroids with motrin as this can increase your risk of bleeding. Monitor for any signs of bleeding such as black tarry stools. Pain of right hip - XR hip right 2 or 3 views; Future - predniSONE (Deltasone) 10 MG tablet; Take 4 tablets (40 mg) by mouth Daily for 4 days, THEN 3 tablets (30 mg) Daily for 4 days, THEN 2 tablets (20 mg) Daily for 4 days, THEN 1 tablet (10 mg) Daily for 4 days. Await xray results. Take the steroid with with food. Do not take steroids with motrin as this can increase your risk of bleeding. Monitor for any signs of bleeding such as black tarry stools. No follow-ups on file. documented in this encounterNorth Kansas City [id number] Telephone encounter Note* Telephone Encounter - Sarabjit Abarca NP - 07/24/2024 12:43 PM EST Scripts sent [facility] [id number] Miscellaneous Notes* Telephone Encounter - Sarabjit Abarca NP - 07/24/2024 12:43 PM EST Scripts sent documented in this encounterNorth Kansas City HospitalFfrvgubytp15-28-4041 History of Present illness Narrative* Anamaria Ring, 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 - 06/22/2024 3:30 PM EST Images from the original note were not included. Subjective Patient ID: Hayder Rizzo is a 44 y.o. female who presents for a sore throat Hayder presents today with a sore throat. She has tried OTC medication with none helping. Back Pain This is a new problem. The current episode started in the past 7 days. The problem occurs constantly. The problem is unchanged. The pain is present in the lumbar spine and sacro-iliac. The quality ofthe pain is described as burning (squeezing). The pain radiates to the left thigh. The pain is at aseverity of 6/10. The pain is moderate. The pain is The same all the time. The symptoms are aggravated by bending, position, lying down and twisting. Associated symptoms include headaches. Treatmentstried: massage, steorid, Mobic. The treatment provided mild relief. Neck Pain This is a new problem. The current episode started today. The problem has been unchanged. Associated symptoms include headaches. Treatments tried: steorids, meloxicam. The treatment provided no relief. Headache This is a new problem. The current episode started today. The problem has been gradually worsening.The pain is located in the Frontal and temporal region. The pain does not radiate. The pain qualityis not similar to prior headaches. The quality of the pain is described as aching. The pain is at aseverity of 8/10. The pain is severe. Associated [...] capsule (10 mg) by mouth Daily Do notcrush, chew, or split. 30 capsule 0 diphenhydrAMINE [...] (attention deficit disorder) Allergic Anemia Anxiety Asthma ([facility]) Carpal tunnel syndrome on right Depression ([facility]) Headache IBS (irritable bowel syndrome) Neurocardiogenic syncope Nonhealing skin ulcer, limited to breakdown of skin ([facility]) 12/29/2022 Sacral radiculopathy Past Surgical History: Procedure [...] No follow-ups on file. documented in this [facility]11-21-2024 Telephone encounter Note* Telephone Encounter - Mariela Ron NP - 06/08/2024 9:30 AM EST Sent. OARRS reviewed. [facility] [id number] Miscellaneous Notes* Telephone Encounter - Mariela Ron NP - 06/08/2024 9:30 AM EST Sent. OARRS reviewed. documented in this [facility]10-22-2024 Telephone encounter Note* Telephone Encounter - Mariela Ron NP - 05/09/2024 12:06 PM EDT OARRS reviewed. Sent. [facility] [place] [facility] [id number] Miscellaneous Notes* Telephone Encounter - Mariela Ron NP - 05/09/2024 12:06 PM EDT OARRS reviewed. Sent. documented in this [facility]09-18-2024 Telephone encounter Note* Telephone Encounter - Mariela Ron NP - 04/05/2024 4:24 PM EDT OARRS reviewed. [facility] [place] [facility] HospitalMzdsbkhnun88-75-5766 Miscellaneous Notes* Telephone Encounter - Mariela Ron NP - 04/05/2024 4:24 PM EDT OARRS reviewed. documented in this encounterNorth Kansas City HospitalPbrbdqdqdw30-85-3283 History of Present illness Narrative* Tamanna Fair MA - 03/31/2024 11:20 AM EDT Images from the original note were not included. CHIEF COMPLAINT REASON FOR VISIT: ADD & post concussion syndrome HPI: Hayder Rizzo is a 44 y.o. female who presents for a follow up. She states she did get bumped upto the 2 mg of the naltrexone and focalin 10 mg daily. No side effects from medications. She statesshe is doing well on both. She states [...] tablet, Oral, Every other day, As needed formigraines. sucralfate (Carafate) 1 g tablet TAKE 1 [...] Oriented to person, place and time. Recent andremote memory are intact. Speech is normal. Language [...] reflexes: Rich's absent. Ankle clonus absent. Coordination Gczqyx-ni-qkll, rapid alternating movements and fumx-gd-wpae normal bilaterally without dysmetria. Gait Normal casual, toe, heel and tandem gait. Romberg is absent. PROCEDURE: NONE ASSESSMENT AND PLAN: Diagnoses and all orders for this visit: ADD (attention deficit disorder) without hyperactivity Continue Focalin 10 mg daily Radiculopathy of sacral region Continue LDN 2 mg daily Follow up 3 months. documented in this encounterNorth Kansas City [id number] Evaluation note* Encounter Date Diagnosis Assessment Notes Treatment Notes Treatment Clinical Notes May, Right arm pain (ICD-10 - M79.601 ) May,Other[Right arm pain By her history and physical examination she does not have any clear indication of arterial compression. It is possible that she could have neurogenic thoracic outlet syndrome. I called PAUL Kingston who is her primary care provider. I discussed her physical exam and history with her. If she wishes to continue evaluation for potential neurogenic thoracic outlet syndrome then a neurology referralwould be helpful. I will see her back on an as-needed basis. Bulb Other 09-30-2023 Chief complaint Narrative - Reported* HAYDER RIZZO is being seen for a consultation for intermittent chest pain. * 42-year-old female seen in cardiology consultation at the request of Dr. Anderson for further evaluation in regards to chest discomfort. Approximately within the last 2 weeks he sustained 1 episode of severe anterior and retrosternal chest discomfort that was excruciating in nature, went to [place] [facility], ruled out for acute coronary syndrome and was discharged home. Details of the [place] emergency room evaluation are unavailable. She apparently [...] to follow and obtain a lipid panel. [facility] Work Phone: [phone]) 146-159106-28-2023 Chief complaint Narrative - Reported* HAYDER RIZZO is being seen for a consultation for intermittent chest pain. * 42-year-old female seen in cardiology consultation at the request of Dr. Anderson for further evaluation in regards to chest discomfort. Approximately within the last 2 weeks he sustained 1 episode of severe anterior and retrosternal chest discomfort that was excruciating in nature, went to [place] ER, ruled out for acute coronary syndrome and was discharged home. Details of the [place] emergency room evaluation are unavailable. She apparently [...] to follow and obtain a lipid panel. [facility] [address] DO Work Phone: [phone]) 401-641609-19-2022 NoteHISTORY: Head trauma x 3 weeks, headache, [...] and signed by Gerry Ott on 04/06/2022 1524[facility] [id number] History of Present illness NarrativeMsIris Rizzo is here for her right shoulder. She [...] and is here today as a new patient.-[facility] Work Phone: Evaluation note* Diagnosis Radiculopathy of [...] this encounter [facility] noteNo assessment information availableTr[facility] Work Phone: Evaluation note* Diagnosis Postconcussion syndrome [...] in this encounter [facility]* Diagnosis Fall, initial encounter- Primary Arm pain, lateral, right Pain of right hip documented [facility] this [facility]* Diagnosis Postconcussion syndrome ADD (attention deficit disorder) without hyperactivity Attention deficit disorder without mention of hyperactivity documented [facility]* Diagnosis Strain of right shoulder, initial encounter- Primary Internal impingement of right shoulder Chronic right shoulder pain Pain in joint, shoulder region documented [facility] this [facility]* Diagnosis Postconcussion syndrome ADD (attention deficit disorder) without hyperactivity Attention deficit disorder without mention of hyperactivity [facility]* Diagnosis Postconcussion syndrome ADD (attention deficit disorder) without hyperactivity Attention deficit disorder without mention of hyperactivity [facility]* Diagnosis Radiculopathy of sacral region documented [...] Type Description Date Medical History anxiety Medical Historychronic depressionMedical Historyacid refluxMedical Historyback painMedical Historydegenerative disc diseaseMedical Historyhypercholesterolemia Surgical Historyrotator cuff tear repair rtSurgical Historyhernia repairSurgical HistorycholecystectomySurgical HistoryC sectionSurgical HistoryD&CSurgical Historycross eye b/l correctionHospitalization HistorySee Above Bulb Other Summary Purpose Family History Unknown Family Member Name Dates Details Family history of hypertensi on: Father(V17.49, Z82.49) Status:ActiveFamily history of myocardial infarction: Father(V17.3, Z82.49) Status:ActiveFamily history of diabetes mellitus: Mother(V18.0, Z83.3) Status:Active Unknown Family Member Name Dates Details Family history of hypertensi on: Father(V17.49, Z82.49) Status:ActiveFamily history of myocardial infarction: Father(V17.3, Z82.49) Status:ActiveFamily history of diabetes mellitus: Mother(V18.0, Z83.3) Status:Active Unknown Family Member Name Dates Details Family history of hypertensi on: Father(V17.49, Z82.49) Status:ActiveFamily history of myocardial infarction: Father(V17.3, Z82.49) Status:ActiveFamily history of diabetes mellitus: Mother(V18.0, Z83.3) Status:Active Unknown Family Member Name Dates Details Family history of diabetes m ellitus: Mother(V18.0, Z83.3) Status:ActiveFamily history of myocardial infarction: Father(V17.3, Z82.49) Status:ActiveFamily history of hypertension: Father(V17.49, Z82.49) Status:Active Relationship Condition Age at Onset Recorded Date/T irene father Unknown Heart diseaseUnknownmotherFamily history of mental disorderUnknownDiabetes mellitusUnknown Advance Directives No Advanced Directives Records FoundNo [...] Advanced Directives Records Found Chief Complaint * 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 Rt shoulder pain, xrays today * Hx of Rt RCR 08/01/13 by SARANYA Additional Source Comments INFORMATION SOURCE (unrecogn ized section and content) DATE CREATED AUTHOR 01/10/2018 [facility] [place] DATE CREATED AUTHOR AUTHOR'S ORGANIZ ATION 04/19/2022 [facility] DATE CREATED AUTHOR AUTHOR'S ORGANIZ ATION 05/11/2022 [facility] DATE CREATED AUTHOR AUTHOR'S ORGANIZ ATION 01/28/2023 [facility] DATE CREATED AUTHOR AUTHOR'S ORGANIZ ATION 01/30/2023 [facility] DATE CREATED AUTHOR AUTHOR'S ORGANIZ ATION 02/12/2023 [facility] DATE CREATED AUTHOR AUTHOR'S ORGANIZ ATION 07/09/2024 [facility] DATE CREATED AUTHOR AUTHOR'S ORGANIZ ATION 07/10/2024 [facility] DATE CREATED AUTHOR AUTHOR'S ORGANIZ ATION 07/11/2024 [facility] DATE CREATED AUTHOR AUTHOR'S ORGANIZ ATION 07/13/2024 [facility] DATE CREATED AUTHOR AUTHOR'S ORGANIZ ATION 08/28/2024 [facility] DATE CREATED AUTHOR AUTHOR'S ORGANIZ ATION 11/26/2024 [facility] REASON FOR VISIT (unrecogniz ed section and content) ReasonOnset DateCommentsMed Byjpze214ReasonOnset DateCommentsMed Refill 4ReasonOnset DateCommentsMed Hhlapm254ReasonOnset DateComments Med Rrlxza084ReasonOnset DateCommentsMed Xfjpfg2708/26/2024ReasonOnset Date CommentsMed Yrjjet7810/30/2024ReasonOnset DateCommentsMed Cucdaq7611/08/2024Reason Onset DateCommentsMed Mcznli7412/31/2024ReasonOnset DateCommentsMed Refill 01/31/2025ReasonOnset DateCommentsMed Zykcgf1902/26/2025ReasonOnset DateComments Med Ljidre5003/06/2025ReasonOnset DateCommentsMed Nnsuzq3704/06/2025ReasonOnset Date CommentsMed Tjpfag4805/08/2025 Care Teams (unrecognized sec tion and content) Team MemberRelationshipSpecialtyStart DateEnd Date Shanon Penaloza MD [address] [facility] [address] [place] [address] PCP - General[facility] Medicine12/28/22Team MemberRelationshipSpecialtyStart DateEnd Date Shanon Penaloza MD [address] [facility] [address] [place] [address] PCP - Generalmily Medicine12/28/22Team MemberRelationshipSpecialtyStart DateEnd Date Shanon Penaloza MD [address] [facility] [address] [place] [address] PCP - [facility] Medicine12/28/22Team MemberRelationshipSpecialtyStart DateEnd Date Shanon Penaloza MD [address] [place] [address] PCP - [facility]12/28/22Team MemberRelationshipSpecialtyStart DateEnd Date Shanon Penaloza MD [address] [facility] [address] [place] [address] PCP - [facility]12/28/22Team MemberRelationshipSpecialtyStart DateEnd Date Shanon Penaloza MD [address] [facility] [address] [place] [address] PCP - [facility]12/28/22Team MemberRelationshipSpecialtyStart DateEnd Date Shanon Penaloza MD [address] [facility] [address] [place] [address] PCP - [facility]12/28/22Team MemberRelationshipSpecialtyStart DateEnd Date Shanon Penaloza MD [address] [facility] [address] [place] [address] PCP - [facility]12/28/22Team MemberRelationshipSpecialtyStart DateEnd Date Shanon Penaloza MD [address] [facility] [address] [place] [address] PCP - [facility]12/28/22 Team Status: Active Member Role Status Dates Moiz Schneider DO Primary Care Provider Active Team Status: Inactive Member Role Status Dates Moiz Schneider DO Primary Care Provider Active Start: August 16, 2024 End: August 16, 2024Robert SCOOTER Waldenttending ProviderActiveStart: August 16, 2024 End: August 16, 2024Team MemberRelationshipSpecialtyStart DateEnd Date Shanon Penaloza MD [address] [facility] [address] [place] [address] [facility]/28/22Team MemberRelationshipSpecialtyStart DateEnd Date Shanon Penaloza MD [address] [facility] [address] [place] [address] [facility] - [facility]12/28/22Team MemberRelationshipSpecialtyStart DateEnd Date Shanon Penaloza MD [address] [facility] [address] [place] [address] PCP - Generalmi Medicine12/28/22Team MemberRelationshipSpecialtyStart DateEnd Date Shanon Penaloza MD [address] [facility] [address] [place] [address] PCP - [facility] Medicine12/28/22Team MemberRelationshipSpecialtyStart DateEnd Date Shanon Penaloza MD [address] [facility] [address] [place] [address] PCP - Generalmi Medicine12/28/22Team MemberRelationshipSpecialtyStart DateEnd Date Shanon Penaloza MD [address] [facility] [address] [place] [address] PCP - Generalmi Medicine12/28/22Team MemberRelationshipSpecialtyStart DateEnd Date Shanon Penaloza MD [address] [facility] [address] [place] [address] [facility]12/28/22Te MemberRelationshipSpecialtyStart DateEnd Date Shanon Penaloza MD [address] [facility] [address] [place] [address] [facility]12/28/22Te MemberRelationshipSpecialtyStart DateEnd Date Shanon Penaloza MD [address] [facility] [address] [place] [address] [facility]12/28/22Te MemberRelationshipSpecialtyStok[place] DateEnd Date Shanon Penaloza MD [address] [facility] [address] [place] [address] [facility]12/28/22 Goals (unrecognized section and content) Goals may [...] BE BASED ON THE PRIMARY CLINICAL RECORDS. [facility]. provides no warranty or guarantee of the accuracy or completeness of information in this document.
[2025-06-08 16:13] LABS: Age Gdln ACOG Testing Note (.); IGP, Aptima HPV, rfx 16/18,45 Note (.)
== END 2025-06-05 19:57 | disposition home or self-care (01) ==
LOC: LAB 19:56
PROVIDERS: PCP Family Medicine; Visit Provider Obstetrics & Gynecology
DX: Z01.419 Encounter for gynecological examination (general) (routine) without abnormal findings (principal)
CPT/HCPCS: 87624; 88175